=== PATIENT | male | born 1930 | race Caucasian/White ===

== ENCOUNTER 2017-03-31 11:03 | Inpatient (IN) ==
[2017-03-31 12:13] LABS: URINE SOURCE VOIDED
[2017-03-31 12:28] LABS: BILIRUBIN URINE NEGATIVE (NEGATIVE); BLOOD URINE NEGATIVE (NEGATIVE); COLOR ORANGE; GLUCOSE URINE NEGATIVE (NEGATIVE); LEUKOCYTES URINE LARGE (NEGATIVE); NITRITE URINE NEGATIVE (NEGATIVE); PROTEIN URINE 70 mg/dL (NEGATIVE); SP GRAVITY URINE 1.014; TURBIDITY URINE TURBID (CLEAR); URINE MICRO REVIEW NEEDED? YES; UROBILINOGEN URINE 3 mg/dL (NORMAL)
[2017-03-31 12:40] LABS: UR EPITHELIAL CELLS <10 /HPF (<10); URINE RBC TNTC /HPF (<10); URINE WBC TNTC /HPF (<10)
[2017-03-31 12:43] LABS: URINE BACTERIA 4+ /HPF
[2017-03-31 12:44] LABS: ALBUMIN 3.3 g/dL (3.5-5.0); CALCIUM 9.3 mg/dL (8.8-10.2); POTASSIUM 4.5 mmol/L (3.5-5.1); TOTAL BILIRUBIN 0.67 mg/dL (0.20-1.00); TOTAL PROTEIN 6.8 g/dL (6.3-8.3)
[2017-03-31 12:56] LABS: BASO% 0.2 % (0.0-0.8); EOS# 0.03 X1000 (0.0-0.7); EOS% 0.2 % (0.0-10.0); HEMATOCRIT 29.8 % (42.0-52.0); HEMOGLOBIN 9.8 g/dL (14.0-18.0); IMM GRAN# 0.17 X1000 (0.0-0.04); IMM GRAN% 1.2 % (0.0-0.5); LYMPH# 0.97 X1000 (1.2-3.4); LYMPH% 6.6 % (20.5-51.1); MANUAL DIFF NEEDED? YES; MCHC 32.9 g/dL (33-37); MCV 91.1 FL (81-99); MONO# 2.31 X1000 (0.11-0.59); MONO% 15.8 % (1.7-9.3); MPV 9.3 FL (7.4-10.4); PLT 297 X1000 (130-400); RBC 3.27 XMIL (4.7-6.1)
[2017-03-31] MEDS ORDERED: TYLENOL PO PRN ×2 (13:04→14:30)
[2017-03-31 13:08] LABS: URINE CASTS NONE SEEN; URINE CRYSTALS NONE SEEN; URINE SMALL ROUND CELLS NONE SEEN
[2017-03-31 13:29] LABS: LYMPHS 4 % (21-51); MONO 8 % (1-9)
[2017-03-31 13:34] LABS: SED RATE 100 mm/hr (0-15)
--- NOTE | 2017-03-31 14:44 | Diag Imaging Result Document ---
PROCEDURE NAME: ABDOMEN/PELVIS W/O CONTRAST - 03/31/2017 CT UROGRAM WITHOUT CONTRAST: FINDINGS: There is a large amount of stool present in the distal colon. There is some fluid present in the ascending colon. There is a fusiform abdominal aortic aneurysm extending above the level of the renal ostia, particularly the left renal ostium which is actually present in the lower portion of the aneurysm. This measures in excess of 5.6 cm in AP dimension. At the time of the previous study of 02/14/2017, this measured 5.8 cm which is probably not a significant difference. There is enlargement of the psoas muscle on the left extending from the iliac fossa to the level of the lower pole of the left kidney. There is some gas in the left renal pelvis. There was gas in the collecting system previously which may be due to instrumentation. No evidence of bowel obstruction is present. There are no apparent gallstones. The left renal collecting system is slightly more distended than it was on the previous study. There are no definite stones in the ureters. There is an ileal loop conduit in the right lower quadrant. IMPRESSION: Apparent left psoas hematoma. Constipation. Stable abdominal aortic aneurysm. The findings were discussed with Dr. Rosenberg at 1320 hours by telephone.
[2017-03-31] MEDS: NS 1,000 ML IV ONE (16:02)
[2017-03-31] MEDS: ZOSYN 2.25 GM/NS 2.25 GM/50 ML IVPB IV SCH ×2 (16:03→23:29)
[2017-03-31] MEDS: ZOFRAN IV PRN (16:06)
[2017-03-31] MEDS: DILAUDID IV PRN ×2 (16:06→18:44)
[2017-03-31] MEDS: CARAFATE PO SCH (16:14)
[2017-03-31] MEDS: ZOCOR PO SCH (22:08)
[2017-03-31] MEDS: RANEXA PO SCH (22:08)
[2017-03-31] MEDS: PEPCID PO SCH (22:08)
[2017-04-01] MEDS: NS 1,000 ML IV ONE (03:42)
[2017-04-01] MEDS: DILAUDID IV PRN ×6 (03:42→23:51)
[2017-04-01] MEDS: NEXIUM PO SCH (06:15)
[2017-04-01] MEDS: ZOSYN 2.25 GM/NS 2.25 GM/50 ML IVPB IV SCH ×3 (08:39→23:24)
[2017-04-01] MEDS: PEPCID PO SCH ×2 (08:42→20:05)
[2017-04-01] MEDS: RANEXA PO SCH ×2 (08:42→20:05)
[2017-04-01] MEDS: CARAFATE PO SCH ×3 (08:42→17:18)
[2017-04-01] MEDS ORDERED: ASPIRIN PO SCH (09:00)
--- NOTE | 2017-04-01 15:57 | PROGRESS NOTE ---
DATE: 04/01/2017 SUBJECTIVE: The patient states he has reasonable pain control. We discussed the anatomical considerations involving a hematoma of the psoas muscle. Vital signs: The temperature is 99.7 degrees, blood pressure is 120/42, pulse 69. PHYSICAL EXAMINATION: General: He is a well-developed, white male, in no acute distress. He seems reasonably comfortable. I do not palpate a discrete mass in the left groin or left lower quadrant. Cardiovascular: Regular. ASSESSMENT AND PLAN: 1. Patient's psoas hematoma will be left to watchful waiting. We may re-image or ask other consultants to give us advice as to whether we should do anything with this or not. His pain is reasonably controlled. 2. The patient's UTI still just shows a gram-negative giovany in the microbiology lab. Will await further identification and sensitivities in order to tune our antibiotics to the organism appropriately. 3. The patient's other medications and problems are stable. We will continue to follow. cc: Ramon Rosenberg MD
[2017-04-01] MEDS: ZOCOR PO SCH (20:05)
[2017-04-02] MEDS: DILAUDID IV PRN ×4 (06:06→17:24)
[2017-04-02] MEDS: NEXIUM PO SCH (06:08)
[2017-04-02 06:35] LABS: MANUAL DIFF NEEDED? NO
[2017-04-02 06:39] LABS: BASO% 0.1 % (0.0-0.8); EOS# 0.06 X1000 (0.0-0.7); EOS% 0.3 % (0.0-10.0); HEMATOCRIT 28.8 % (42.0-52.0); HEMOGLOBIN 9.1 g/dL (14.0-18.0); IMM GRAN# 0.08 X1000 (0.0-0.04); IMM GRAN% 0.4 % (0.0-0.5); LYMPH# 1.02 X1000 (1.2-3.4); LYMPH% 5.6 % (20.5-51.1); MCH 29.6 PG (27-31); MCHC 31.6 g/dL (33-37); MCV 93.8 FL (81-99); MONO# 2.68 X1000 (0.11-0.59); MONO% 14.7 % (1.7-9.3); NEUT% 78.9 % (42.2-75.2); PLT 293 X1000 (130-400); RBC 3.07 XMIL (4.7-6.1)
[2017-04-02 06:56] LABS: CALCIUM 9.1 mg/dL (8.8-10.2); POTASSIUM 4.6 mmol/L (3.5-5.1)
[2017-04-02] MEDS: CARAFATE PO SCH ×3 (09:31→17:24)
[2017-04-02] MEDS: PEPCID PO SCH (09:31)
[2017-04-02] MEDS: RANEXA PO SCH (09:31)
[2017-04-02] MEDS: MAXIPIME 2 GM/NS 2 GM/100 ML IVPB IV SCH (09:51)
--- NOTE | 2017-04-02 11:02 | CONSULTATION ---
DATE OF CONSULTATION: 04/02/2017 CONCLUSION: The patient last night had fever, chills, and he has leukocytosis. On CT scan he has what is being called by the radiologist a left psoas hematoma. Both Dr. Rosenberg and I are concerned that the hematoma may be infected. The patient also has a gram negative giovany urinary tract infection. RECOMMENDATIONS: I have discontinued Zosyn and placed the patient on cefepime. I agree with Dr. Rosenberg that it would be advantageous to drain the left psoas fluid collection and send it for culture. DISCUSSION: The patient tells me approximately 3 weeks ago he started having pain in his left groin area, radiating down the left leg. In the past year he has had low back pain associated with pain radiation down both legs. This has gotten progressively worse. He had fever last night and his white count is elevated at 18,180. As mentioned above, CT scan shows a left psoas muscle hematoma. The patient's CBC shows a white count of 18,180, hemoglobin 9.1, and platelet count is 293,000. Creatinine is 2. GFR is 32. Urinalysis shows white cells and bacteria. Urine is growing a gram negative giovany. PAST MEDICAL HISTORY/REVIEW OF SYSTEMS: Eyes and ears: He denies difficulty hearing or seeing. Neck: No stiffness. Respiratory: No cough or shortness of breath. Cardiac: No chest pain or palpitation. Gastrointestinal: No nausea, vomiting, or diarrhea. : The patient has an ileal conduit in place. Endocrine: The patient does not have a history of diabetes or thyroid disease. Bones, joints, and muscles: As mentioned above, the patient has low back pain which radiates down both legs. He says is getting progressively worse. Neurologic: No seizures. No motor or sensory loss. PREVIOUS HOSPITALIZATIONS AND OPERATIONS: He has had coronary artery bypass grafting, placement of coronary artery stents, aortic aneurysm repair, cervical spine surgery, removal of his bladder for bladder cancer and creation of an ileal conduit. He has also had knee surgery on both knees. MEDICAL DISEASES: Positive for osteoarthritis, hypertension, bladder cancer, hyperlipidemia, and multiple myeloma. INFECTIOUS DISEASE HISTORY: Positive for pneumonia and a left psoas abscess. FAMILY HISTORY: Positive for multiple myeloma and strokes. [place]IAL HISTORY[place] . He has a dog as a pet. He lives alone. ALLERGIES: He is allergic to Demerol. HOME MEDICATIONS: Include Carafate, Zocor, Ranexa, multivitamins, Nexium, aspirin, and Tylenol. PHYSICAL EXAMINATION: Vital Signs: Temperature is 98.5 degrees, pulse 77, respirations 18, blood pressure 119/49. Patient's weight is listed as 211 pounds. Generally: This is a chronically ill- appearing, elderly male. He is in no acute distress. Head eyes, ears, nose, and throat: He can hear my spoken words and see near objects. No drainage noted from the nose or ears. Neck: No meningismus. Thorax: No increased AP diameter of the chest. Lungs: Clear to auscultation. Cardiovascular: Heart rate is regular. There is a systolic murmur. Abdomen: Soft and nontender. Neurologic: Patient is alert. He can move his extremities. There is no tremor. His sensation is intact to touch. His memory, as regarding his medical history, is intact. Integument: No rash is noted. Bones, joints, muscles: There is no joint swelling. There is no muscle tenderness. Integument: No rash seen. Thank you for the consult. cc: MD Ramon Alarcon MD [facility]
--- NOTE | 2017-04-02 13:04 | Diag Imaging Result Doc PS360 ---
EXAM: Drainage Abd Abscess w/Imaging HISTORY: psoas abscess COMPARISON: None. FINDINGS: Prior to the procedure are discussed the risk and benefits with the patient. Primary risks include: Bleeding, infection, and bowel injury. Questions were answered. The patient then gave consent. A permit was signed. The patient was placed [id number] CT table. The irregular collection within the left psoas muscle was localized with CT. The largest area was marked on the body surface. This area was cleaned and draped in normal fashion. Lidocaine was used as a local anesthetic. A 10-Iraqi catheter was advanced into the fluid collection without difficulty. Thick yellowish and brownish fluid was withdrawn. A portion of this was sent to the laboratory for analysis, Gram stain, and culture. Needle and introducer were removed. Pigtail catheter was left in position. This was secured to the patient's skin surface. The patient had no complaints during or following the procedure. IMPRESSION: CT-guided abscess drainage with no immediate postprocedural complications. Electronically signed by Aashish Mcclendon 04/02/2017 1:02 PM
[2017-04-03] MEDS: DILAUDID IV PRN ×3 (00:52→19:00)
[2017-04-03] MEDS: ZOCOR PO SCH (00:52)
[2017-04-03] MEDS: MAXIPIME 2 GM/NS 2 GM/100 ML IVPB IV SCH ×3 (00:52→21:47)
[2017-04-03] MEDS: RANEXA PO SCH ×3 (00:53→21:47)
[2017-04-03] MEDS: PEPCID PO SCH ×3 (00:53→21:47)
[2017-04-03] MEDS: NEXIUM PO SCH (06:45)
[2017-04-03] MEDS: CARAFATE PO SCH ×3 (09:17→17:32)
--- NOTE | 2017-04-03 09:18 | PROGRESS NOTE ---
DATE: 04/03/2017 SUBJECTIVE: The patient states that he is reasonably comfortable. He tolerated his procedure yesterday very well. His psoas abscess was approached with CT guidance, and pigtail catheter drain was placed which is still in place at the present time. Dr. Stallworth consulted yesterday and changed antibiotics. OBJECTIVE: Vital Signs: Temperature now is 99.2, T-max is 99.5 degrees. Blood pressure is 112/46. PHYSICAL EXAMINATION: The patient's lungs are clear. Cardiovascular: Regular. The patient has a drain in place in the left groin area which does not appear to have anything in the bag at the present time, but there is some serosanguineous fluid, brownish in color. Collected in the bottom of it is a scant amount at the present time. ASSESSMENT AND PLAN: 1. The patient's psoas abscess has been drained. He is on antibiotics. We are awaiting culture of abscess fluid. He will remain on cefepime for the present time. 2. The patient's urinary tract infection drawn from the ileal conduit has identified a gram- negative giovany but has gone no further today at the time of this dictation. We will adjust any antibiotics based on those culture results as well. 3. The patient's blood pressure is rather low today. We will continue to monitor this. 4. The patient's last creatinine was 2.0 with reasonable hydration. We will continue to follow this as well. cc: Ramon Rosenberg MD
--- NOTE | 2017-04-03 15:32 | PROGRESS NOTE ---
DATE: 04/03/2017 PRESENT ILLNESS: The patient has a recurrence of his left psoas abscess. Gram positive cocci are seen on gram stain of the abscess. He also has a gram negative giovany UTI. MEDICATIONS: The patient is on cefepime. PHYSICAL EXAMINATION: Vital Signs: Temperature is 99.2 degrees, pulse 71, respirations 18, blood pressure 112/46. General: This is an ill-appearing, elderly male. He is in no acute distress. Lungs: Clear to auscultation. Cardiovascular: Regular heart rate. Abdomen and Flank: Patient has a drain in the left psoas abscess. The fluid coming out is a brownish yellowish fluid. LAB AND X-RAY: The psoas Gram stain shows gram-positive coccus. The culture thus far is negative. Urine culture is growing a gram-negative giovany. There is no new CBC or BMP for today. There is no new x-ray for today either. ASSESSMENT AND PLAN: The patient has a gram-negative giovany urinary tract infection and gram- positive cocci in the left psoas abscess. I plan to continue cefepime. I have ordered daptomycin to be given in case the gram-positive coccal organism turns out to be methicillin-resistant Staph aureus. I have discontinued Zocor while the patient is on daptomycin because of the interaction between the 2 causes an increased risk of muscle toxicity. The assessment is that he does have a urinary tract infection and a recurrent psoas abscess. The plan will be to continue cefepime and start daptomycin pending culture results. COMORBIDITIES: Include the fact that he is elderly and he has chronic lymphocytic leukemia and has previously had a psoas abscess. I will go ahead and check his immunoglobulin levels also. cc: MD Ramon lAarcon MD [facility]
[2017-04-03] MEDS ORDERED: CUBICIN (FOR INPATIENT USE) 600 MG in NS 100 ML IV SCH (16:00)
[2017-04-04 06:20] LABS: MANUAL DIFF NEEDED? NO
[2017-04-04 06:23] LABS: BASO% 0.1 % (0.0-0.8); EOS# 0.19 X1000 (0.0-0.7); EOS% 1.2 % (0.0-10.0); HEMATOCRIT 28.9 % (42.0-52.0); HEMOGLOBIN 9.3 g/dL (14.0-18.0); IMM GRAN# 0.09 X1000 (0.0-0.04); IMM GRAN% 0.6 % (0.0-0.5); LYMPH# 0.91 X1000 (1.2-3.4); LYMPH% 5.9 % (20.5-51.1); MCH 29.4 PG (27-31); MCHC 32.2 g/dL (33-37); MCV 91.5 FL (81-99); MONO# 1.71 X1000 (0.11-0.59); MONO% 11.1 % (1.7-9.3); MPV 9.1 FL (7.4-10.4); NEUT% 81.1 % (42.2-75.2); PLT 332 X1000 (130-400); RBC 3.16 XMIL (4.7-6.1)
[2017-04-04] MEDS: NEXIUM PO SCH (06:39)
[2017-04-04 06:49] LABS: ALBUMIN 2.8 g/dL (3.5-5.0); CALCIUM 9.5 mg/dL (8.8-10.2); POTASSIUM 4.6 mmol/L (3.5-5.1); TOTAL BILIRUBIN 0.71 mg/dL (0.20-1.00)
[2017-04-04] MEDS: DILAUDID IV PRN ×2 (07:51→20:03)
[2017-04-04] MEDS: CARAFATE PO SCH ×4 (07:52→16:43)
[2017-04-04] MEDS: PEPCID PO SCH ×3 (07:52→20:54)
[2017-04-04] MEDS: RANEXA PO SCH ×3 (07:52→20:54)
[2017-04-04] MEDS: MAXIPIME 2 GM/NS 2 GM/100 ML IVPB IV SCH (07:53)
--- NOTE | 2017-04-04 11:59 | PROGRESS NOTE ---
DATE: 04/04/2017 SUBJECTIVE: The patient has no complaints. He is getting up and going to the restroom when needed. He is getting in the chair. He is eating well. His pain is all but resolved as a result of drainage of the abscess in the psoas muscle. OBJECTIVE: Vital Signs: T-max 99.2 degrees, temperature now 98.2, blood pressure 135/52, pulse rate is 78, respirations 12 and unlabored. 97% saturated on room air. General: He is a well- developed, well-nourished, white male. He is sleeping upon my visit but easily arousable. He is alert, oriented, conversive and appropriate. Lungs: Clear. Cardiovascular: Regular. The psoas abscess drain has about 20-30 mL of brownish clear fluid draining by gravity. MICROBIOLOGY: Patient's urine from the ileal conduit grew Enterobacter cloacae complex in greater than 100,000 colony-forming units per mL. It is resistant to everything except amikacin. The culture taken from the psoas muscle has shown no growth at the present time, but did have a few scattered gram positive cocci. LABORATORY: White cell count is down to 15.4, hematocrit 28.9, BUN is 50, creatinine 1.8. AST is up to 206, ALT 191, alkaline phosphatase 214. ASSESSMENT/PLAN: 1. The patient's psoas abscess is draining. We are awaiting cultures results. Dr. Stallworth has been dosed him with daptomycin and we will make adjustments on this based on culture results or need for further antibiotics. 2. The patient's urinary tract infection, which was drawn from his ileal conduit which we already know to leak stool, has grown Enterobacter cloacae complex which is resistant to everything except amikacin. I took the liberty of discontinuing the cefepime and starting amikacin dose which was adjusted for the patient's age and creatinine in consultation with the pharmacist. We will be drawing the peak and trough levels in approximately 2 days. 3. The patient's renal insufficiency has improved slightly to a creatinine of 1.8. 4. Abdominal aortic aneurysm, aware. 5. I encouraged the patient to get up and move around in the room, to sit in the chair, and to consume adequate p.o. intake. He was in agreement with this. I informed the patient that he will be here over the weekend to continue antibiotics and probably arrange for a PICC line and IV infusion at home at the time of discharge. He will likely be here through the weekend and no plans are made in regard to this. cc: Ramon Rosenberg MD
[2017-04-04] MEDS: AMIKACIN IV SCH (14:15)
[2017-04-04] MEDS: NS IV SCH (14:15)
--- NOTE | 2017-04-04 15:58 | PROGRESS NOTE ---
DATE: 04/04/2017 PRESENT ILLNESS: The patient has a [id number] Enterobacter urinary tract infection. He also appears to have a psoas abscess, not only because the fluid looks like it is an abscess, but also on Gram stain, Gram-positive cocci were seen in the abscess. MEDICATIONS: The patient is on daptomycin. He had been on cefepime, and Dr. Rosenberg discontinued cefepime and started the patient on amikacin, which is the only antibiotic that the Enterobacter organism was susceptible to. I have asked the microbiology laboratory to send that Enterobacter isolate to [facility] for testing against meropenem. PHYSICAL EXAMINATION: Vital Signs: Temperature is 98.7 degrees, pulse 70, respirations 18, blood pressure 136/53. Generally: This is an ill-appearing, elderly male. He is somewhat lethargic. He is in no acute distress. Lungs: Clear to auscultation. Cardiovascular: Regular heart rate. Abdomen and Flanks: The patient has a drain in place in the psoas abscess. There is no erythema at the drain site. The abdomen was soft and tender, as were both flanks. LABORATORY AND X-RAY: CBC for today shows a white count of 15,430, hemoglobin 9.3, and platelet count of 332,000. Creatinine is 1.8. GFR is 36. The psoas abscess Gram stain was positive for Gram-positive cocci. The culture has remained negative. The Enterobacter is susceptible to only amikacin. ASSESSMENT AND PLAN: The assessment is that the patient has a Gram-negative giovany urinary tract infection and a Gram-positive coccal left psoas abscess. The patient now is on vancomycin and amikacin. The plan now is to continue treatment with the amikacin and the daptomycin. The patient's CBC shows a white count of 15,430, hemoglobin 9.3, and platelet count of 332,000. Creatinine is 1.8 and GFR is 36. Urine grew a [id number] Enterobacter. The psoas abscess Gram stain showed Gram-positive cocci, but the cultures are negative. We will continue to treat with daptomycin for the psoas abscess and amikacin for the Enterobacter urinary tract infection. COMORBIDITIES: The patient's comorbidities are that he is elderly, has chronic lymphocytic leukemia, and has previously had a psoas abscess. Immunoglobulin levels have been drawn and I do not see any results yet for the abscesses. cc: MD Ramon Alarcon MD
[2017-04-04] MEDS: CUBICIN (FOR INPATIENT USE) 600 MG in NS 100 ML IV SCH (16:42)
[2017-04-05] MEDS: AMIKACIN IV SCH ×3 (00:06→23:22)
[2017-04-05] MEDS: NS IV SCH ×3 (00:06→23:22)
[2017-04-05] MEDS: NEXIUM PO SCH (06:19)
--- NOTE | 2017-04-05 08:30 | PROGRESS NOTE ---
DATE: 04/05/2017 SUBJECTIVE: Mr. Dean was admitted to [facility] with a psoas abscess. He is currently undergoing drainage of the abscess. He is not having any significant groin pain. Anaerobic cultures demonstrated no anaerobes and Gram's staining of the abscess was unremarkable. He is not having any dysuria, increased urinary frequency, or low back pain. A urine culture grew out Enterobacter cloacae. He is resting comfortably at night. His appetite is good. He denies any nausea or vomiting. He is afebrile. Pulse 74, respirations 24, BP 137/48.CV: Regular rate and rhythm with a 2/6 systolic ejection murmur at the left sternal margin. Lungs: Clear. Abdomen: Soft, nontender, with active bowel sounds. ASSESSMENT AND PLAN: 1. Psoas abscess status post drainage. 2. Urinary tract infection in which cultures grew out Enterobacter cloacae. 3. [id number]-st-dwvqcrv renal insufficiency. Clinically, Mr. Dean continues to improve. We will continue broad-spectrum antibiotics, including daptomycin 600 mg IV q.24 hours pending final cultures. Renal function continues to improve. His creatinine has dropped from 2.1 to 1.8. We will continue gentle hydration and recheck a creatinine in the morning. cc: MD Ramon Martines MD
[2017-04-05] MEDS: DILAUDID IV PRN ×2 (08:38→17:18)
[2017-04-05] MEDS: PEPCID PO SCH ×2 (08:39→21:14)
[2017-04-05] MEDS: CARAFATE PO SCH ×3 (08:39→21:14)
[2017-04-05] MEDS: RANEXA PO SCH ×2 (08:40→21:14)
[2017-04-05] MEDS: CUBICIN (FOR INPATIENT USE) 600 MG in NS 100 ML IV SCH (17:10)
[2017-04-06] MEDS: NEXIUM PO SCH (06:17)
[2017-04-06 06:55] LABS: MANUAL DIFF NEEDED? NO
[2017-04-06 07:04] LABS: BASO% 0.1 % (0.0-0.8); EOS% 2.8 % (0.0-10.0); HEMATOCRIT 31.4 % (42.0-52.0); IMM GRAN# 0.08 X1000 (0.0-0.04); IMM GRAN% 0.6 % (0.0-0.5); LYMPH# 0.97 X1000 (1.2-3.4); LYMPH% 6.7 % (20.5-51.1); MCH 29.4 PG (27-31); MCHC 31.8 g/dL (33-37); MCV 92.4 FL (81-99); MONO# 1.65 X1000 (0.11-0.59); MONO% 11.4 % (1.7-9.3); NEUT% 78.4 % (42.2-75.2); PLT 363 X1000 (130-400)
[2017-04-06 07:50] LABS: ALBUMIN 2.9 g/dL (3.5-5.0); CALCIUM 10.2 mg/dL (8.8-10.2); POTASSIUM 4.8 mmol/L (3.5-5.1); TOTAL BILIRUBIN 0.64 mg/dL (0.20-1.00); TOTAL PROTEIN 7.2 g/dL (6.3-8.3)
[2017-04-06] MEDS: RANEXA PO SCH ×2 (08:47→20:29)
[2017-04-06] MEDS: CARAFATE PO SCH ×3 (08:47→17:07)
[2017-04-06] MEDS: PEPCID PO SCH ×2 (08:47→20:29)
[2017-04-06] MEDS: ZOFRAN IV PRN (09:09)
[2017-04-06] MEDS: NS IV SCH (11:43)
[2017-04-06] MEDS: AMIKACIN IV SCH (11:43)
[2017-04-06] MEDS: DILAUDID IV PRN (12:57)
--- NOTE | 2017-04-06 14:20 | PROGRESS NOTE ---
DATE: 04/06/2017 SUBJECTIVE: Mr. Dean was admitted to [facility] with a psoas abscess. The abscess has been drained. He has had no groin pain, nausea or vomiting. Cultures have grown out Bacteroides fragilis. He remains afebrile. OBJECTIVE: Vital signs: Temperature 98.8 degrees pulse 83, respirations 18, BP 144/64. CV: Regular rate and rhythm with a 2/6 systolic ejection murmur at the left sternal margin. Lungs: Clear. Abdomen: Soft, nontender, with active bowel sounds. LABORATORY DATA: Various laboratory studies were obtained. A CBC demonstrated a white count of 14.4, hemoglobin 10, hematocrit 31.4 and a platelet count of 363,000. A CMP demonstrates sodium 140, potassium 4.8, chloride 101, CO2 22, BUN 47, creatinine 1.6, glucose 129. ASSESSMENT AND PLAN: 1. Psoas abscess. Cultures grew out Bacteroides fragilis. He is currently taking daptomycin 600 mg IV daily. His liver enzymes are trending upward. On 03/31/2017 his AST was 44, the ALT was 49. Today the AST was 256 and the ALT was 356. Daptomycin is associated with liver function abnormalities. I will reduce the dosage of daptomycin to 4 mg/kg body weight and he will take 400 mg IV q.24 hours. I will recheck liver function test in the morning as well as check an ultrasound of the gallbladder and liver in the morning. 2. Acute on chronic renal insufficiency. His creatinine has dropped from 2.1 to 1.4. We will continue gentle rehydration. cc: MD Ramon Martines MD
[2017-04-06] MEDS ORDERED: INVANZ 1 GM/NS 1 GM/50 ML IVPB IV SCH (14:45)
--- NOTE | 2017-04-06 15:59 | Diag Imaging Result Doc PS360 ---
EXAM: ABDOMEN/PELVIS W/O CONTRAST HISTORY: psoas abscess, increased liver function tests TECHNIQUE: CT urogram without contrast COMMENT: There is mild the dependent atelectasis in the right base. The left psoas is less enlarged than it was at the time the previous study of 03/31/2017. It now measures 6.5 cm in transverse dimension compared to 8 cm at the time of the previous study. The drainage catheter which was placed on 04/02/2017 is no longer present. The abdominal aortic aneurysm which has been previously described is stable in appearance. There is still fullness of the collecting system of the left kidney. There is a fairly large amount of fluid and gas in the distal colon. This is in distinction from the solid contents which were previously present. There are no gallstones and the appearance of the liver has not changed significantly since the previous study. IMPRESSION: Improved left psoas abscess. Improved constipation. Electronically signed by Willem Hernadez 04/06/2017 3:57 PM
[2017-04-06] MEDS ORDERED: CUBICIN (FOR INPATIENT USE) 400 MG in NS 100 ML IV SCH (16:00)
--- NOTE | 2017-04-06 18:58 | PROGRESS NOTE ---
DATE: 04/06/2017 SUBJECTIVE: Patient has a psoas abscess from which Bacteroides fragilis was isolated. It is of note that the original Gram stain of the abscess fluid showed gram positive cocci and of course Bacteroides fragilis is a gram-negative giovany. The patient also has a multiply drug resistant Enterobacter urinary tract infection. I think in trying to put the patient's story altogether he came in and he had pain in his left lower abdominal quadrant and it was especially noticeable when he walked. The left psoas muscle infection I think is the cause of that pain because for 1, the psoas muscle is more in that area rather than the left kidney which is more in the CVA area. In addition, the pain only occurred when he walked and I think what the patient was doing when he walked was he was actually doing a psoas sign on himself in other words when he walked the left legged extended itself which is what you would do when they are lying in bed and if that causes pain then that means that there is something going on in the psoas muscle rather than the kidney. Therefore, I think the urinary tract infection with Enterobacter is asymptomatic. In addition, the patient has a urostomy and the urine was collected from the urostomy bag. To best of my knowledge, those bags are not sterile and in addition if the patient's urine culture was taken from the bag that was not just put on the patient then I think there is a high likelihood that organisms were growing in the bag and not necessarily coming from the kidney. The bags themselves get colonized with other organisms. Therefore my feeling would be that the patient's illness is due to a left psoas abscess from which Bacteroides was isolated and the urinary tract infection is asymptomatic. MEDICATIONS: The patient is on amikacin and daptomycin. PHYSICAL EXAMINATION: Vital Signs: Temperature is 98.8 degrees, pulse 83, respirations 18, blood pressure 144/64. General: This is a somewhat ill-appearing elderly male. He is in no acute distress. He is feeling better. He says he is not having any pain and he has been able to have a fairly good appetite. Lungs: Clear to auscultation. Cardiovascular: Heart rate is regular. Abdomen and flank: Soft and nontender. LABORATORY AND X-RAY: The patient's psoas culture is growing Bacteroides even though the Gram stain showed gram-positive cocci. I think it is possible that the that the gram-positive cocci actually are not present in the abscess. The patient's CBC shows a white count of 14,450, hemoglobin 10 and platelet count 363,000. Creatinine is down to 1.6. GFR is 41. The ALT is 356. The patient had immunoglobulin levels drawn and they were normal. ASSESSMENT AND PLAN: My assessment is that the patient has a Bacteroides left psoas abscess and that this is causing the patient's symptoms. I agree with Dr. Carroll that the daptomycin could be causing the patient's elevated liver function studies. I further think that the Enterobacter urinary tract infection is asymptomatic or possibly could just represent contamination in the bag. My plan is to discontinue daptomycin and discontinue amikacin and instead put the patient on ertapenem 1 g IV every 24 hours. COMORBIDITY: He is elderly. Also, he has chronic lymphocytic leukemia but fortunately his immunoglobulin levels are not low. The patient has been having problems with infection in the left psoas muscle. Previously we have not grown anything from the abscess. cc: MD Ramon Alarcon MD
[2017-04-07] MEDS: NEXIUM PO SCH (06:17)
[2017-04-07 07:25] LABS: ALBUMIN 2.9 g/dL (3.5-5.0); DIRECT BILIRUBIN 0.2 mg/dL (0.00-0.20); TOTAL BILIRUBIN 0.41 mg/dL (0.20-1.00); TOTAL PROTEIN 6.9 g/dL (6.3-8.3)
[2017-04-07] MEDS: RANEXA PO SCH (08:31)
[2017-04-07] MEDS: CARAFATE PO SCH ×2 (08:31→12:19)
[2017-04-07] MEDS: PEPCID PO SCH (08:31)
[2017-04-07 08:49] VITALS: BP 137/56
--- NOTE | 2017-04-07 12:37 | Diag Imaging Result Doc PS360 ---
Drainage Abd Abscess w/Imaging - 04/07/2017 INDICATION: catheter out of place TECHNIQUE: The risks and benefits of the procedure were discussed with the patient. All questions were answered. Written and verbal informed consent was obtained. Overlying skin was prepped and draped in sterile fashion. Anesthesia was achieved with injection of 10 cc of 1% lidocaine. Using intermittent CT guidance, a new 10.2-Georgian abscess drain was placed into the left psoas collection. Approximately 100 cc of pus was aspirated using a syringe. The drainage catheter was sutured in place. The patient reported no symptoms from the procedure. COMPARISON: 04/06/2017 FINDINGS: Left psoas abscess. IMPRESSION: Successful drainage of left psoas abscess. Electronically signed by Deni Sales 04/07/2017 12:34 PM
[2017-04-07] MEDS ORDERED: AUGMENTIN PO SCH (21:00)
--- NOTE | 2017-04-08 15:52 | DISCHARGE SUMMARY ---
ADMISSION DATE: 03/31/2017 DISCHARGE DATE: 04/07/2017 Consultation is for Porfirio Stallworth as well as Aashish Mcclendon. HOSPITAL COURSE: This 87-year-old, white male, came in complaining of left lower quadrant pain identical to his previous psoas abscess. He did not have any fever but was brought to the hospital for investigation. He indeed had a fluid collection in his left psoas muscle and spiked a fever shortly thereafter. Initial workup included urine collected from his conduit/urostomy bag. The grew out enterococci species with significant resistance pattern. CT-guided drain placement for the left psoas fluid collection was obtained. This was Gram stained and appeared to have gram-positive cocci in it but then grew out Enterobacter cloacae species. Dr. Stallworth was consulted and he felt that the patient's infectious process was related to the psoas abscess and was not to the contaminated urostomy output. He felt that he had likely asymptomatic bacteriuria from the ileal conduit. We discussed options and the patient would like to try an outpatient p.o. Augmentin for a period of time rather than IV antibiotics. Prior to discharge at a CT scan was run for unclear reasons but thankfully. This was noted to show a decrease in the size of the psoas abscess but that the drain was not in the fluid collection any longer. There did not appear to be any interruption or movement of the drain but for some reason, it was no longer in the fluid collection. We reordered a procedure for drainage and the radiologist was able to put a pigtail catheter in the fluid collection and drained off what he described as 100 mL of pus. The drain was left in place and allowed to drain by gravity. It is noted that on the CT scan showing the drain placed that the fluid collection had decreased from a maximum diameter of 8 cm to a diameter of 5.5 cm. This was all explained to the patient. He is in agreement and very desirous of discharge with the trial of PO Augmentin. He will keep the pigtail catheter in place draining to gravity and will follow up in my office in 1 week. He knows that if he has any fever were to come up, worsening pain or other symptomatology to contact me any time. cc: Ramon Rosenberg MD
== END 2017-04-07 17:18 | disposition home or self-care (01) ==
LOC: CT 11:03 → DIRADM 12:44 → 3N 14:05
PROVIDERS: ADMIT Internal Medicine; ATTEND Internal Medicine

== ENCOUNTER 2019-01-08 02:35 | Inpatient (IN) ==
[2019-01-08] MEDS ORDERED: MORPHINE IV ONE ×2 (03:15→06:16)
--- NOTE | 2019-01-08 04:20 | PROVIDER DOCUMENTATION ---
HPI-General Adult - General Chief Complaint: Hip Injury Stated Complaint: hip pain Time Seen by Provider: 01/08/19 03:10 Source: patient Allergies/Adverse Reactions: Patient Allergies Allergy/AdvReac Type Severity Reaction Status Date / Time meperidine HCl * Allergy HIVES Verified 12/22/17 13:18 [From Demerol] Home Medications: Home Medication List Medication Instructions Recorded Confirmed Last Taken Type Aspirin 81 mg PO DAILY 07/29/16 12/22/17 12/22/17 08:00 History Acetaminophen [Tylenol] 650 mg PO Q6H PRN PRN #0 tablet 08/02/16 12/22/17 21:00 Rx ATORVAstatin [Lipitor] 40 mg PO DAILY 11/23/17 12/22/17 12/21/17 21:00 History Famotidine [Pepcid] 20 mg PO BID tablet 12/01/17 12/22/17 12/22/17 08:00 Rx Colesevelam [Welchol] 625 mg PO DAILY tablet 12/25/17 Unknown Rx Lactobacillus Rhamnosus GG 1 each PO DAILY capsule 12/25/17 Unknown Rx [Culturelle] Amoxicillin/Pot Clavulanate 875 mg PO BID CC tablet 02/05/18 Unknown Rx [Augmentin] Loperamide [Imodium] 2 mg PO QAM capsule 02/05/18 Unknown Rx Menthol/Zinc Oxide Ointment 1 gm TOP PRN PRN tube 02/05/18 Unknown Rx [Calmoseptine Ointment] Mirtazapine [Remeron] 7.5 mg PO QHS tablet 02/05/18 Unknown Rx Multivitamins/Iron [Hemocyte Plus 1 each PO DAILY capsule 02/05/18 Unknown Rx Capsule] Ranolazine E.r. [Ranexa] 500 mg PO Q12HR tablet 02/05/18 Unknown Rx - History of Present Illness -Gen Adult Nature of Presenting Problems: Pt presents s/p fall, pt got up to go to the bathroom, got dizzy and landed on his left hip, now with pain in left hip, sharp, no radiation, constant, pt denies head trauma, pt denies loc, pt denies f/c, victor, cp, sob, cough, ap, n/v/ d. Pt is lying in bed in no acute distress. Location of Pain/Injury: reports: pelvis Pain Radiation: reports: no radiation Quality of Pain: reports: sharp Onset/Duration: reports: 1-3 hours ago Timing: reports: still present Context/Activities at Onset: reports: none Modifying Factors: improves with: nothing Associated Symptoms: reports: denies symptoms Similar Symptoms Previously?: No Recently seen or treated by another doctor?: No Review of Systems - Adult - REVIEW OF SYSTEMS - ADULT Constitutional: reports: no symptoms reported Eyes: reports: no symptoms reported Ears, Nose, Mouth & Throat: reports: no symptoms reported Cardiovascular: reports: no symptoms reported Respiratory: reports: no symptoms reported Gastrointestinal: reports: no symptoms reported Genitourinary: reports: no symptoms reported Musculoskeletal: reports: see HPI Integumentary: reports: no symptoms reported Neurological: reports: no symptoms reported Psychiatric: reports: no symptoms reported Endocrine: reports: no symptoms reported Hematologic/Lymphatic: reports: no symptoms reported Allergic/Immunologic: reports: no symptoms reported All Other Systems: Reviewed and Negative Past History - Adult - PAST MEDICAL HISTORY-ADULT Review of Records: reports: Old Records Reviewed, Nursing Assessment Review, Medications Reviewed, Social history reviewed & non-contributory. Major Childhood Illnesses: reports: denies history Cardiovascular: reports: CAD, HTN, hyperlipidemia, [place] Respiratory: reports: denies history Gastrointestinal: reports: GERD Obstetrical/Gynecological: reports: denies history Genitourinary: reports: cancer (bladder ), kidney disease, kidney stones Musculoskeletal: reports: denies history Neurological: reports: denies history Psychiatric: reports: denies history Endocrine/Immune: reports: denies history Other Conditions: reports: other cancer (multiple myleoma , bone ca) - PRIOR SURGERIES/PROCEDURES Surgical/Procedure History: reports: CABG (x2), indwelling device, other ( removal of bladder, cystosostomy, neck and back surgery, Aorta repair) - PRIOR HOSPITALIZATIONS Prior Hospitalizations: reports: for other non-related - IMMUNIZATION STATUS Childhood Immunizations: See Nurse Assessment Flu Vaccine: See Nurse Assessment - FAMILY HISTORY Family History: reviewed, not pertinent Physical Exam-General - PHYSICAL EXAM-ADULT Initial Vital Signs Reviewed: Yes - CONSTITUTIONAL General Appearance: appears well - EYES Eyes: PERRL/EOMI - HEAD, EARS, NOSE, MOUTH & THROAT HENMT: normocephalic/atraumatic - NECK Neck: non-tender - RESPIRATORY Respiratory: chest non-tender - CARDIOVASCULAR Cardiovascular: normal peripheral pulses - GASTROINTESTINAL (ABDOMEN) Abdominal Exam: normal bowel sounds - LYMPHATIC Lymphatic: no adenopathy - MUSCULOSKELETAL Back Exam: other (left leg shortened and rotated, ttp in left hip) Extremity: tenderness - SKIN Integumentary: normal color - NEUROLOGIC Neurologic: 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 dish 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 II-XII nml as tested - PSYCHIATRIC Psych/Mental Status: normal mood/affect Progress - PLAN OF CARE/RESULTS Progress/Plan/Lab Results: Vital Signs - 8 hr 01/08/19 02:37 Temperature 98.1 F Pulse Rate 63 Respiratory Rate 18 Blood Pressure 179/62 O2 Sat by Pulse Oximetry 100 Orders Category Date Time Status Nursing- Obtain EKG once Care 01/08/19 03:14 Active NPO Diet 01/08/19 04:15 Ordered XRAY PELVIS W/HIP 2-3VW LT [RAD] Stat Exams 01/08/19 02:34 Taken CBC WITH ELECTRONIC DIFF [HEME] Stat Lab 01/08/19 03:10 Uncollected COMPREHENSIVE METABOLIC PANEL [CHEM] Stat Lab 01/08/19 03:11 Uncollected PRO B-NATRIURETIC PEPTIDE Stat Lab 01/08/19 03:14 Uncollected PROTIME WITH INR [COAG] Stat Lab 01/08/19 03:11 Uncollected PTT [COAG] Stat Lab 01/08/19 03:11 Uncollected TROPONIN T Stat Lab 01/08/19 03:14 Uncollected TYPE & SCREEN [BBK] Stat Lab 01/08/19 04:15 Uncollected Morphine Med 01/08/19 03:15 Discontinued 4 mg IV NOW ONE EKG [EKG] Stat Ther 01/08/19 03:14 Ordered xray shows left hip fracture, probable intertrochanteric, spoke to ortho and thy will see the patient in the am, pt made NPO, will admit Departure - Departure Date of Disposition Decision: 01/08/19 Time of Disposition Decision: 04:19 DIAGNOSIS: Intertrochanteric fracture of femur Qualifiers: Encounter type: initial encounter Fracture type: closed Fracture alignment: nondisplaced Laterality: left Qualified Code(s): S72.145A - Nondisplaced intertrochanteric fracture of left femur, initial encounter for closed fracture Disposition: ADMITTED INPATIENT 09 Certified Medical Emergency: Emergent Condition: Stable Referrals and Follow-Ups: Ramon Rosenberg MD [Primary Care Provider] - - Critical Care Note This patient required my direct & personal management of CC.: No Attestation - Physician/ RADHA Attestation Patient care was provided by Advanced Practice Provider:: No The physician spent face to face time with patient:: Yes Advanced Practice Provider documentation review:: Supervising physician onsite and consulted in the evaluation and care of this patient. The physician did have a face to face encounter with the patient.
[2019-01-08 05:21] LABS: INR 0.89; PROTIME 12.8 Seconds (11.0-16.0)
[2019-01-08 05:36] LABS: ALB/GLOB RATIO 1.6; ALBUMIN 3.9 g/dL (3.5-5.0); CALCIUM 9.3 mg/dL (8.8-10.2); CREATININE 2.4 mg/dL (0.7-1.2); TOTAL BILIRUBIN 0.19 mg/dL (0.20-1.00); TOTAL PROTEIN 6.4 g/dL (6.3-8.3)
[2019-01-08 05:54] LABS: BASO# 0.01 X1000 (0.0-0.2); BASO% 0.1 % (0.0-0.8); EOS# 0.11 X1000 (0.0-0.7); EOS% 1.5 % (0.0-10.0); HEMATOCRIT 27.8 % (42.0-52.0); HEMOGLOBIN 8.4 g/dL (14.0-18.0); LYMPH# 0.94 X1000 (1.2-3.4); LYMPH% 12.9 % (20.5-51.1); MCH 28.7 PG (27-31); MCHC 30.2 g/dL (33-37); MCV 94.9 FL (81-99); MONO# 0.87 X1000 (0.11-0.59); MONO% 11.9 % (1.7-9.3); MPV 10.1 FL (7.4-10.4); NEUT# 5.37 X1000 (1.4-6.5); NEUT% 73.6 % (42.2-75.2); PLT 125 X1000 (130-400); RBC 2.93 XMIL (4.7-6.1); RDW 15.4 % (11.5-14.5)
[2019-01-08 05:56] LABS: PTT 19.4 Seconds (22.3-41.8)
--- NOTE | 2019-01-08 07:30 | EKG Report ---
Test Performed on : 01/08/2019 04:38:14 AM Test Reason : SURGERY Blood Pressure : / mmHG Vent. Rate : 063 BPM Atrial Rate : 063 BPM P-R Int : 162 ms QRS Dur : 096 ms QT Int : 432 ms P-R-T Axes : 011 047 054 degrees QTc Int : 442 ms Normal sinus rhythm. Normal ECG No previous ECGs available Unconfirmed Result
--- NOTE | 2019-01-08 07:31 | Diag Imaging Result Doc PS360 ---
EXAM: XRAY PELVIS W/HIP 2-3VW LT 01/08/2019 HISTORY: fall TECHNIQUE: AP pelvis and left hip four views COMMENT: There is an intertrochanteric fracture of the left femur which was not present on 07/25/2016. There is extensive atherosclerotic calcification. IMPRESSION: Intertrochanteric fracture of the left femur. Electronically signed by Willem Hernadez 01/08/2019 7:29 AM
--- NOTE | 2019-01-08 07:39 | CONSULTATION ---
DATE OF CONSULTATION: 01/08/2019 HISTORY OF PRESENT ILLNESS: Mr. Dean is an 88-year-old male who fell last night, and injured this left hip. Most of his pain is on the left hip, and pain is worse with any movement. It does feel better when he is off of it. He denies any pain anywhere else. He stated he did hit his head a little bit, but he did not have any loss of consciousness. PAST MEDICAL HISTORY: Heart issues including coronary artery disease and hypertension. PAST SURGICAL HISTORY: Coronary artery bypass grafting times 2. Aorta repair. MEDICATIONS: Per the medical record. ALLERGIES: Meperidine SOCIAL HISTORY: He denies any smoking or alcohol use. REVIEW OF SYSTEMS: Positive for this left hip pain. All other systems are essentially negative. PHYSICAL EXAMINATION: General: Elderly appearing male. He is in no acute distress. Head and Neck: Normocephalic, atraumatic. Respirations: Nonlabored breathing. Cardiovascular: Irregular pulse. Abdomen: Nondistended. Extremities: On left lower extremity exam, he has tender to palpation at the hip. His hip is externally rotated and a little bit short in that whole leg. He has good dorsiflexion and plantar flexion of the ankle. Good sensation to light touch to the toes. IMAGING: Hip x-ray shows an intertrochanteric fracture with displacement. ASSESSMENT: Left intertrochanteric fracture. PLAN: I discussed with Mr. Dean about surgical intervention. I went over with him about left trochanteric femoral nailing. We discussed the procedure, risks, benefits, and potential complications. Risks include, but are not limited to infection, wound healing problems, damage to nerves, arteries, veins, numbness, malunion, nonunion, hardware related issues, continued pain, DVT, and anesthesia related risks. After discussing these with the patient, he expressed understanding and wished to proceed. He will be n.p.o. now, and then we will get this done today. cc: MD MANISH Saenz
[2019-01-08] MEDS ORDERED: NS 1,000 ML IV ONE (08:43)
[2019-01-08] MEDS ORDERED: MORPHINE IV PRN (09:53)
[2019-01-08] MEDS: MORPHINE IV PRN ×2 (10:29→16:27)
[2019-01-08] MEDS ORDERED: KEFZOL 2 GM/D5W 2 GM/50 ML IVPB ONE (11:40)
[2019-01-08] MEDS ORDERED: DIPRIVAN 1% ONE (11:46)
[2019-01-08] MEDS ORDERED: XYLOCAINE-MPF 2% ONE (11:46)
--- NOTE | 2019-01-08 12:13 | HISTORY AND PHYSICAL ---
CHIEF COMPLAINT: Hip pain. HISTORY OF PRESENT ILLNESS: This is an 88-year-old white male who fell at home some time after he had gone to bed. He apparently got up early in the morning and was very dizzy and fell, striking his left hip and having immediate pain. He was transferred to the emergency room and found to have a hip fracture and admitted for further treatment and stabilization. PAST MEDICAL HISTORY: 1. History of bladder cancer with cystectomy and ileo conduit. The ileo conduit has chronic stool leakage dating from the time of the original surgery. 2. The patient has coronary artery disease, status post CABG in 1978 and stents in 2004. 3. The patient had an abdominal aortic aneurysm repair in 1989. This has recurred, and his AAA is 6 cm in diameter and inoperable. 4. Hyperlipidemia. 5. Hypertension. 6. Osteoarthritis. 7. History of lumbar laminectomy with chronic lower back pain. 8. Cervical spine surgery which was ill defined. 9. The patient has a history of multiple left psoas abscesses which were treated inpatient and outpatient for extended period of time. He has had no recurrent in a year or more. SOCIAL HISTORY: The patient is retired from [employer]. He was in the [employer] prior to that. He has a 40-pack year history of smoking, he stopped in 1973. He does not use alcohol. The patient still lives alone. FAMILY HISTORY: The patient's mother had multiple myeloma and coronary artery disease. ALLERGIES: Demerol. REVIEW OF SYSTEMS: The patient stated that all day yesterday as he was walking around, he felt "a little dizzy." He would have to sit down and rest. He did not have chest pain or palpitations. He did not really have any worsening shortness of breath. He is not terribly active even at baseline. He stated that when he went to bed just before he retired, he checked his blood pressure, and it was 121/54. The patient has been experiencing leg cramps due to chronic low dose Lasix use, but if he does not take the Lasix, his legs swell up considerably. He has not had any worsening shortness of breath. He has not had any fever or chills. Ileo conduit flow has been steady, it looks no worse than usual. PHYSICAL EXAMINATION: GENERAL: He is a well-developed, well-nourished white male in no acute distress. He is reasonably comfortable in the ER when I saw him. NEUROPSYCH: The patient is alert, oriented, conversive and appropriate. His mood is appropriate. LUNGS: Clear to auscultation. Sternotomy scar is noted. CARDIOVASCULAR: He is regular. ABDOMEN: Bowel sounds are present. There is a faint bruit. EXTREMITIES: There is 1+ pitting edema in the lower extremities below the knee. The left leg is foreshortened. Other neurologic examination is not undertaken other than to note cranial nerves were intact. DIAGNOSTIC DATA: White count is 7.3, hemoglobin 8.4, hematocrit 27.8, platelet count 125. BUN is 41, creatinine 2.4, baseline is somewhere in the 1.5 range. Troponin was negative. ProBNP was negative. ASSESSMENT AND PLAN: 1. Left hip fracture. X-ray shows an intertrochanteric fracture of left femur. The patient is admitted to the hospital to my service. Evgeny Menjivar has been consulted and will perform is likely a femoral nail with internal fixation. We will have standard orthopedic orders. 2. The patient's AAA is something that we have been keeping track of. It is inoperable. It is for that reason that I am going to make him a no code in case if he has a bad outcome or bad problem, that could likely be the cause and would be unfixable anyway. 3. Coronary artery disease, aware. 4. The patient's dizziness that he describes may have been fueled by hypotension and relative dehydration based on his BUN and creatinine numbers as well as his relatively low blood pressure. We will continue to monitor this. 5. Chronic leg cramps. I have added some quinine. 6. We will reinstitute home medications following surgery. cc: Ramon Rosenberg MD
[2019-01-08] MEDS ORDERED: ROBINUL ONE (12:44)
[2019-01-08] MEDS ORDERED: NEO-SYNEPHRINE ONE (12:46)
[2019-01-08] MEDS ORDERED: SALINE LOCK IV FLUID XX ONE (13:12)
[2019-01-08] MEDS ORDERED: MORPHINE ONE ×2 (13:40→13:46)
[2019-01-08] MEDS ORDERED: NS 1,000 ML ONE (14:14)
--- NOTE | 2019-01-08 14:48 | OPERATIVE NOTE ---
PROCEDURE DATE: 01/08/2019 PREOPERATIVE DIAGNOSIS: Left intertrochanteric hip fracture. POSTOPERATIVE DIAGNOSIS: Left intertrochanteric hip fracture. PROCEDURE: Left trochanteric femoral nailing. SURGEON: Dr. Evgeny Menjivar. STAFFING RECRUITER: Anika Ortiz, nurse practitioner, who was an integral part of the case, helping with all aspects of the case, helping to increase our OR efficiency greatly. ANESTHESIA: General with LMA. ESTIMATED BLOOD LOSS: 50 mL. IMPLANTS: Synthes 11 x 440 trochanteric femoral nail. DISPOSITION: To PACU, hemodynamically stable. INDICATION FOR PROCEDURE: Mr. Dean is 88-year-old male who fell last night, was diagnosed with an intertrochanteric hip fracture, admitted per the Hospitalist Service. I discussed with him this morning about surgical intervention. He expressed understanding and wished to proceed with the surgery. DESCRIPTION OF PROCEDURE: Mr. Dean was identified in the preoperative holding area. The left hip was marked as the correct surgical site. He was then wheeled to the operating room, placed supine on the operating table. All bony prominences were well padded. He was induced under general anesthesia. LMA was placed and he was placed in traction boots and then attached to the traction part of the bed. Left lower extremity was then prepped with chlorhexidine gluconate scrub and then ChloraPrep, and draped in normal sterile fashion. Surgical pause was performed. We identified the correct patient, correct side, and the correct procedure. Preoperative antibiotics were given. Fluoroscopic imaging was used which showed we had a really good reduction of our fracture. I then started with an incision just superior to his greater trochanter. Dissection was carried down. Got our position with a guidewire. I got it into place and then I overdrilled it with an opening reamer. I then got the ball-tip guidewire down, then reamed it to a size 12 reamer. We then used an 11 x 440 nail, got it in position and then made a small incision on the lateral aspect of the thigh and got my guidewire up the center, centered in the head. I measured that to a 110 helical blade. We drilled and then put the blade in, we locked it into place, making it a fixed construct and then we took off the outrigger guide. Final images were taken which showed that the fracture was well reduced. The helical blade and the nail were in good position in both AP and lateral views. We did not put a distal interlocking screw since his lateral wall was intact. We then closed everything in a layered fashion, 0 Vicryl for the deep layer, 2-0 Vicryl for the subcutaneous and hussein on the skin. Adaptic, 4x4s, and Island dressings were applied. He was then moved to his own bed and taken to the PACU in stable condition. Postoperatively, he will be weightbear as tolerated to the left lower extremity and we will see him in the morning. cc: MD Ramon Saenz MD
[2019-01-08] MEDS: OXY IR PO PRN (20:43)
[2019-01-08] MEDS: ZOFRAN IV PRN (20:43)
[2019-01-08] MEDS: KEFZOL 1 GM/D5W 1 GM/50 ML IVPB IV SCH (20:45)
[2019-01-08] MEDS: PERIDEX MT SCH (20:45)
[2019-01-09] MEDS: KEFZOL 1 GM/D5W 1 GM/50 ML IVPB IV SCH ×2 (04:08→16:41)
[2019-01-09 06:37] LABS: HEMATOCRIT 24.2 % (42.0-52.0); HEMOGLOBIN 7.3 g/dL (14.0-18.0)
[2019-01-09 07:14] LABS: CALCIUM 9.1 mg/dL (8.8-10.2); CREATININE 1.8 mg/dL (0.7-1.2); POTASSIUM 5.2 mmol/L (3.5-5.1)
[2019-01-09] MEDS: OXY IR PO PRN ×2 (09:10→16:40)
[2019-01-09] MEDS: PERIDEX MT SCH ×2 (09:11→22:04)
[2019-01-09] MEDS: PEPCID PO SCH ×2 (09:11→22:04)
[2019-01-09] MEDS: RANEXA PO SCH ×2 (09:11→22:04)
--- NOTE | 2019-01-09 10:19 | PROGRESS NOTE ---
DATE: 01/09/2019 SUBJECTIVE: The patient is sitting in the bed. He is awake, alert, oriented, conversive and appropriate. He expresses no complaints. He has had reasonable pain control and in fact, his last pain medication was sometime last night. OBJECTIVE: Vital signs: 98.9, 86, 20, 132/57, 93% saturated on room. Cardiovascular: The patient is in a regular rhythm with a 2/6 systolic ejection murmur (old). Lungs: Clear to auscultation. Extremities: Show EDIS hose and he really has no edema at the present time. LABORATORY DATA: Hemoglobin 7.3, hematocrit 24.2. BUN 35, creatinine 1.8 ( baseline). Blood sugar is 106. ASSESSMENT AND PLAN: 1. The patient's left femoral fracture has been repaired surgically. He is scheduled to start physical therapy soon. We discussed pain control measures and staying ahead of the pain so that he can maximize his function. We also discussed rehab at the time of discharge and he was agreeable to that. 2. The patient is Do Not Resuscitate level 1. 3. Abdominal aortic aneurysm, is inoperable. 4. Severe coronary disease is noted. We will start him back on his Ranexa, and holding aspirin until his hemoglobin and hematocrit stabilize. 5. We will have to watch the patient's blood pressure, particularly given his postoperative anemia and make sure that he is fully perfused. cc: Ramon Rosenberg MD MTDTravis
--- NOTE | 2019-01-09 13:14 | PROGRESS NOTE ---
DATE: 01/09/2019 SUBJECTIVE DATA: Mr. Dean is sitting up in the bed. He is doing very well. He states his pain is much better. OBJECTIVE DATA: Left lower extremity: His incisions are clean, dry, and intact. The surgical dressing is still on with very minimal shadowing. He is able to dorsi and plantar flex the foot. He is able to activate all the quadriceps muscles. He is a little weak on that side. He has good sensation and a 2+ pedal pulse. ASSESSMENT: Status post left trochanteric femoral nailing. PLAN: Mr. Dean can be weightbearing as tolerated to this left side. I do want him getting up and working with therapy today. I have told him to get up and have lunch at the bedside chair with the nurse if therapy has not come by then. They can also take the dressing down and clean that area. It does look like we are getting him ready for rehab. We will work on getting that set up. Once he is discharged, we will need to follow up with him in 1 to 2 weeks in the office. Dictated by MEMO Dubois for Evgeny Menjivar MD cc: MEMO Dubois MD Timothy P. Weirich, MD
[2019-01-09] MEDS: QUININE SULFATE PO SCH (16:17)
[2019-01-09] MEDS: LIPITOR PO SCH (22:04)
[2019-01-10] MEDS: TYLENOL PO PRN
[2019-01-10 06:52] LABS: HEMATOCRIT 25.6 % (42.0-52.0); HEMOGLOBIN 7.8 g/dL (14.0-18.0)
--- NOTE | 2019-01-10 09:41 | PROGRESS NOTE ---
DATE: 01/10/2019 SUBJECTIVE: The patient is sitting up in bed. States that he has reasonable pain control. He ate well this morning. His bowels have not worked. We discussed management going forward. He was well-pleased. OBJECTIVE: Vital Signs: The patient's T-max was 100.1 degrees. Temperature now is 98.6, blood pressure 131/53, pulse rate is 80, respirations 20, the patient is 97% saturated on room air. Physical Examination: Cardiovascular: The patient has a 2-3/6 systolic ejection murmur which is old. He is in a regular rhythm. Lungs: Clear to auscultation in all pavon. Neuropsychiatric: The patient is alert, oriented, conversive, and appropriate. His mood and affect are normal. Extremities: The patient has on EDIS hose. I did not view the surgical wound. Laboratory: The patient's hemoglobin was 7.8, which is up 0.5 after transfusion. Serum chemistries have not been returned yet. His BUN was 35, creatinine 1.8 yesterday. ASSESSMENT AND PLAN: 1. Patient's left femoral fracture has been surgically repaired. He tolerated physical therapy yesterday, although he was a little bit uncomfortable. He stated that he would push through it and do all he can to improve his long-term function ability. 2. The patient's fever is rather inexplicable. He denies everything on review of systems and has not had any disturbance to his respiratory or gastrointestinal tract. Because of previous infectious processes including two left psoas abscesses, Clostridium difficile colitis, and multiple ileal conduit infections, I am going to start him on empiric Zosyn dosed for renal insufficiency. 3. Abdominal aortic aneurysm. Aware. Inoperable. 4. Severe coronary artery disease. The patient is back on Ranexa. We are still holding aspirin until his hemoglobin and hematocrit stabilize. He is on no other blood thinners. 5. EDIS hose for deep venous thrombosis prophylaxis. 6. The patient's blood pressure is stable. 7. The patient expressed an interest in going to [facility] for rehab as he regains his ability to transfer and walk. cc: Ramon Rosenberg MD
[2019-01-10] MEDS: OXY IR PO PRN ×2 (10:33→16:50)
[2019-01-10] MEDS: RANEXA PO SCH ×2 (10:34→21:35)
[2019-01-10] MEDS: QUININE SULFATE PO SCH (10:34)
[2019-01-10] MEDS: PERIDEX MT SCH ×2 (10:35→21:35)
[2019-01-10] MEDS: PEPCID PO SCH ×2 (10:35→21:35)
[2019-01-10] MEDS: ZOSYN 2.25 GM in NS 50 ML IV SCH ×3 (10:36→22:15)
[2019-01-10] MEDS: LIPITOR PO SCH (21:35)
[2019-01-11] MEDS: ZOSYN 2.25 GM in NS 50 ML IV SCH ×3 (03:49→18:18)
[2019-01-11 06:09] LABS: HEMATOCRIT 24.7 % (42.0-52.0); HEMOGLOBIN 7.5 g/dL (14.0-18.0)
[2019-01-11] MEDS: OXY IR PO PRN (07:58)
[2019-01-11] MEDS: RANEXA PO SCH ×2 (08:00→21:57)
[2019-01-11] MEDS: QUININE SULFATE PO SCH (08:00)
[2019-01-11] MEDS: PERIDEX MT SCH ×2 (08:00→21:57)
[2019-01-11] MEDS: PEPCID PO SCH ×2 (08:00→21:57)
--- NOTE | 2019-01-11 09:19 | PROGRESS NOTE ---
DATE: 01/11/2019 SUBJECTIVE: The patient is sitting on the edge of the bed, eating breakfast. He has no complaints. He did not receive a blood transfusion yesterday and we do not know why this did not take place. VITAL SIGNS: 98.4, 80, 18, 126/51, 96% saturated on room air. PHYSICAL EXAMINATION: General: Patient is alert, oriented, conversive, and appropriate. Lungs: Clear. Cardiovascular: Showed a 3/6 systolic ejection murmur (old). Extremities: Show no peripheral edema. LABORATORY: Hemoglobin today was 7.5, hematocrit 24.7. ASSESSMENT AND PLAN: 1. The patient seems to be doing quite well with his femoral fracture repair. He is looking forward to physical therapy. He wants to go to rehab at [facility]. 2. The patient has had no further fever. He is on empiric antibiotics. 3. I have no explanation for why the patient's blood transfusion yesterday was canceled. There was no notification given to any of the doctors that this could not be carried down. The nursing staff is looking into what happened on this and we will transfuse as soon as practical. 4. Abdominal aortic aneurysm. We are aware and this is inoperable. 5. Severe coronary artery disease. Aware. The patient is on home medications. He is not on aspirin due to his low hemoglobin and hematocrit. 6. The patient has EDIS hose for deep venous thrombosis prophylaxis. 7. Blood pressure is stable. cc: Ramon Rosenberg MD
[2019-01-11] MEDS ORDERED: NS 500 ML IV SCH (11:00)
[2019-01-11] MEDS: LIPITOR PO SCH (21:57)
[2019-01-11] MEDS: TYLENOL PO PRN (21:58)
[2019-01-12] MEDS: OXY IR PO PRN ×3 (00:11→23:34)
[2019-01-12] MEDS: ZOSYN 2.25 GM in NS 50 ML IV SCH ×2 (01:29→06:44)
[2019-01-12 06:16] LABS: BASO# 0.01 X1000 (0.0-0.2); BASO% 0.1 % (0.0-0.8); EOS# 0.52 X1000 (0.0-0.7); HEMATOCRIT 25.6 % (42.0-52.0); HEMOGLOBIN 7.9 g/dL (14.0-18.0); IMM GRAN# 0.02 X1000 (0.0-0.04); IMM GRAN% 0.3 % (0.0-0.5); LYMPH# 0.78 X1000 (1.2-3.4); LYMPH% 10.4 % (20.5-51.1); MCH 29.2 PG (27-31); MCHC 30.9 g/dL (33-37); MCV 94.5 FL (81-99); MONO# 1.28 X1000 (0.11-0.59); MONO% 17.1 % (1.7-9.3); MPV 9.9 FL (7.4-10.4); NEUT# 4.86 X1000 (1.4-6.5); NEUT% 65.1 % (42.2-75.2); PLT 167 X1000 (130-400); RBC 2.71 XMIL (4.7-6.1); RDW 14.4 % (11.5-14.5); WBC 7.47 X1000 (4.8-10.8)
[2019-01-12 06:26] LABS: CALCIUM 8.9 mg/dL (8.8-10.2); POTASSIUM 4.5 mmol/L (3.5-5.1)
[2019-01-12] MEDS: RANEXA PO SCH ×2 (08:14→23:34)
[2019-01-12] MEDS: QUININE SULFATE PO SCH (08:14)
[2019-01-12] MEDS: PERIDEX MT SCH ×2 (08:14→23:33)
[2019-01-12] MEDS: PEPCID PO SCH ×2 (08:14→23:34)
[2019-01-12] MEDS ORDERED: EPOGEN SUBQ ONE ×2 (08:28→09:00)
--- NOTE | 2019-01-12 09:58 | PROGRESS NOTE ---
DATE: 01/12/2019 SUBJECTIVE: Mr. Dean is lying in bed this morning. Overall, he is doing well, not really complaining of a lot of pain. OBJECTIVE: Left lower extremity exam: Dressing is clean, dry, and intact. He is neurovascularly intact to the left lower extremity. ASSESSMENT: Status post left trochanteric femoral nailing. PLAN: Mr. Dean has done great. His pain is under control. He is weight bear as tolerated to the left lower extremity. He is to work with Physical Therapy. Really getting stronger. He should be able to be discharged today. I will see him in 2 weeks in clinic. We will take the hussein out at that time. cc: MD Ramon Saenz MD
[2019-01-12] MEDS: PRECARE PO SCH (10:12)
--- NOTE | 2019-01-12 10:36 | PROGRESS NOTE ---
DATE: 01/12/2019 SUBJECTIVE: The patient has no complaints. He did receive his transfusion yesterday. We discussed his continued low blood count. He seems to be doing reasonably well with physical therapy. He is eagerly awaiting rehabilitation. OBJECTIVE: Vital signs: The patient is afebrile. Temperature 98.2 degrees, pulse rate 68, blood pressure 140/60, 98% saturated on room air. Lungs: Clear. Cardiovascular: He has a regular rhythm with a 2/6 systolic ejection murmur (old). Extremities: The patient has on EDIS hose. There is no significant edema in the lower extremities. The surgical wound was not viewed. LABORATORY DATA: White count 7.4, hemoglobin 7.9, hematocrit 25.6, BUN 48, creatinine 2.0. ASSESSMENT AND PLAN: 1. Fracture repair is complete and the patient is progressing with physical therapy. We were looking for rehab at [facility]. 2. The patient has had no further fever. We will discontinue antibiotics. 3. The patient received another unit of packed red cells yesterday. His hemoglobin only went up 0.4. We had a discussion about his chronic kidney dysfunction, the aortic aneurysm which is also impeding blood flow to the kidneys and how that affects his blood count. I plan to transfuse him another unit today and give him a shot of Epo and see if we can move him towards rehabilitation a little bit sooner. 4. Abdominal aortic aneurysm. Aware. 5. Severe coronary artery disease. Aware. 6. The patient is using EDIS hose for deep venous thrombosis prophylaxis. 7. Blood pressure is stable. 8. DNR level 1. cc: Ramon Rosenberg MD
[2019-01-12] MEDS: ZOFRAN IV PRN ×2 (14:04→23:33)
[2019-01-12] MEDS: LIPITOR PO SCH (23:34)
[2019-01-13] MEDS: RANEXA PO SCH (09:09)
[2019-01-13] MEDS: PERIDEX MT SCH (09:10)
[2019-01-13] MEDS: QUININE SULFATE PO SCH (09:10)
[2019-01-13] MEDS: PRECARE PO SCH (09:10)
[2019-01-13] MEDS: PEPCID PO SCH (09:10)
--- NOTE | 2019-01-13 09:50 | PROGRESS NOTE ---
DATE: 01/13/2019 SUBJECTIVE: The patient finally got another transfusion of a unit of packed cells yesterday. He is feeling better. He was able to walk to the door yesterday with Physical Therapy. OBJECTIVE: Vital signs: Temperature maximum 99.6. Temperature now 98.2, pulse 67, respirations 12, blood pressure 151/50. My physical exam was limited as the patient had a bowel movement in the bed and was quite a mess at the time of my examination. He was unaware that he had an accident. ASSESSMENT AND PLAN: 1. Fracture repair is complete. The patient is progressing with physical therapy. We are looking for rehab at [facility]. 2. The patient still has low-grade fever. We discontinued antibiotics yesterday. We will continue to monitor this. 3. The patient had been transfused yesterday. We are going to give some time to settle and then if he is in the hospital tomorrow, we will recheck his hemoglobin and hematocrit. 4. Abdominal aortic aneurysm, aware. 5. Coronary artery disease, aware. 6. The patient will continue in [facility] for DVT prophylaxis. 7. Blood pressure stable. 8. Do Not Resuscitate level 1. cc: Ramon Rosenberg MD
[2019-01-13 11:32] VITALS: BP 145/56
--- NOTE | 2019-01-13 13:14 | Diag Imaging Result Doc PS360 ---
EXAM: CHEST-PORTABLE HISTORY: REHAB PLACEMENT TECHNIQUE: Chest single view COMPARISON: 01/19/2018 FINDINGS: The lungs are well expanded. The heart is not enlarged. Sternal wires are present. The vessels are not distended. There are no infiltrates. No effusion identified. There has been surgery to the lower neck. IMPRESSION: No acute abnormality. Electronically signed by Aashish Mcclendon 01/13/2019 1:12 PM
--- NOTE | 2019-01-13 13:15 | DISCHARGE SUMMARY ---
ADMISSION DATE: 01/08/2019 DISCHARGE DATE: 01/13/2019 DISCHARGE DIAGNOSES: 1. Fall. 2. Left femoral intertrochanteric fracture. 3. Ileal conduit. 4. Abdominal aortic aneurysm. 5. Chronic ischemic heart disease. 6. Chronic anemia. 7. Stage 3 kidney disease. 8. Peripheral vascular disease. 9. Hypercholesterolemia. OPERATIVE PROCEDURES: Intramedullary nail. CONSULTATIONS: Dr. Menjivar. HOSPITAL COURSE: 88-year-old white male fell at home accidentally fracturing his left femur. He was admitted to the hospital. Dr. Menjivar was consulted and performed intramedullary nail on the day after admission. He tolerated the procedure well. The patient has a chronic baseline anemia, which worsened postoperatively, partially due to trauma and partially likely due to underproduction from chronic renal insufficiency. He was transfused a total of 3 units of packed red cells and this got him close to his baseline. The patient's pressure was in good shape throughout. The patient did spike a fever briefly postoperatively and was given some antibiotics, but blood cultures and other studies were negative, so this was not continued. 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 On the day prior to discharge, the patient was able to walk to the door with assistance and was doing quite well with physical therapy. DISPOSITION: He is discharged to [facility] for rehabilitation with the expectation that he will return home at some point. cc: Ramon Rosenberg MD
== END 2019-01-13 14:49 | DRG 482 ==
LOC: ED 02:35 → 4N 09:32
PROVIDERS: ADMIT Internal Medicine; ATTEND Internal Medicine
CPT/HCPCS: 36430; 71010; 71045; 73502; 76000; 80048; 80053; 83880; 84484; 85014; 85018; 85025; 85610; 85730; 86850; 86900; 86901; 86920; 93005; 94761; 94799; 96374; 96376; 97116; 97162; 97530; 99285; A9270; J0690; J0885; J2270; J2370; J2405; J2543; J7030; J7040; P9016

== ENCOUNTER 2019-11-12 11:23 | Inpatient (IN) ==
[2019-11-12] MEDS ORDERED: NS 1,000 ML IV ONE ×2 (12:17→14:43)
[2019-11-12] MEDS ORDERED: MORPHINE IV ONE (12:17)
[2019-11-12] MEDS ORDERED: ZOFRAN IV ONE (12:17)
[2019-11-12] MEDS ORDERED: DIPHTHERIA/TETANUS ADULT IM ONE (12:17)
[2019-11-12] MEDS ORDERED: NEOSPORIN OINTMENT PACKET TOP ONE (12:18)
[2019-11-12 12:37] LABS: BASO# 0.01 X1000 (0.0-0.2); BASO% 0.1 % (0.0-0.8); EOS# 0.09 X1000 (0.0-0.7); EOS% 0.8 % (0.0-10.0); HEMATOCRIT 37.5 % (42.0-52.0); HEMOGLOBIN 11.9 g/dL (14.0-18.0); IMM GRAN# 0.03 X1000 (0.0-0.04); IMM GRAN% 0.3 % (0.0-0.5); LYMPH# 1.37 X1000 (1.2-3.4); LYMPH% 12.1 % (20.5-51.1); MCH 31.1 PG (27-31); MCHC 31.7 g/dL (33-37); MCV 97.9 FL (81-99); MONO# 1.11 X1000 (0.11-0.59); MONO% 9.8 % (1.7-9.3); MPV 10.2 FL (7.4-10.4); NEUT# 8.74 X1000 (1.4-6.5); NEUT% 76.9 % (42.2-75.2); PLT 184 X1000 (130-400); RBC 3.83 XMIL (4.7-6.1); RDW 13.6 % (11.5-14.5); WBC 11.35 X1000 (4.8-10.8)
[2019-11-12 12:50] LABS: INR 1.11; PROTIME 14.5 Seconds (11.0-16.0)
[2019-11-12 12:51] LABS: PTT 26.3 Seconds (22.3-41.8)
--- NOTE | 2019-11-12 12:51 | Diag Imaging Result Doc PS360 ---
CHEST-PORTABLE - 11/12/2019 INDICATION: fall COMPARISON: 01/13/2019 FINDINGS: Stable sternotomy wires. The lungs are clear. Heart size is normal. No pneumothorax or pleural effusion. IMPRESSION: Negative exam. Electronically signed by Deni Sales 11/12/2019 12:49 PM
--- NOTE | 2019-11-12 13:06 | Diag Imaging Result Doc PS360 ---
CT PELVIS W/O CONTRAST - 11/12/2019 INDICATION: fall injury left hip/pelvis COMPARISON: 03/31/2018 FINDINGS: There is a left femoral neck stabilization giovany. Alignment is anatomic. No hardware fracture or loosening. There is significant bony bridging at the intertrochanteric fracture. No new fractures visible. Stable abdominal aortic aneurysm and severe vascular disease of the pelvis and legs. Stable advanced lumbar spondylosis. IMPRESSION: No acute injury. This exam was performed using automated exposure control, adjustment of mA or kV according to patient size, and/or use of iterative reconstruction technique Electronically signed by Deni Sales 11/12/2019 1:03 PM
--- NOTE | 2019-11-12 13:11 | Diag Imaging Result Doc PS360 ---
EXAM: CT HEAD/C-SPINE W/O CONTRAST - 11/12/2019 HISTORY: head injury/pain TECHNIQUE: CT head/cervical spine without contrast COMPARISON: 12/19/2016 CT head FINDINGS: CT head: There are mild atrophic changes similar to prior. There is no evidence of intracranial hemorrhage, mass effect, midline shift, or hydrocephalus. There is no evidence of infarct, although acute infarcts may not be immediately visible. There is no evidence of skull fracture. There are prominent venous lakes noted at the occipital skull similar to prior. CT cervical spine: There are postsurgical changes of anterior fusion at C4-C5-C6. There is degenerative disc and degenerative facet disease. There is a partially calcified posterior disc protrusion which produces moderate spinal stenosis at C3-4. There is no fracture, subluxation, or precervical soft tissue swelling identified. IMPRESSION: CT head: No visible acute intracranial abnormality. No evidence of intracranial injury. CT cervical spine: Anterior surgical fusion at C4-C5-C6. Partially calcified posterior disc protrusion which produces moderate spinal stenosis at C3-4. No evidence of fracture or subluxation. This exam was performed using automated exposure control, adjustment of mA or kV according to patient size, and/or use of iterative reconstruction technique. Electronically signed by Avel Cortez 11/12/2019 1:09 PM
--- NOTE | 2019-11-12 13:17 | Diag Imaging Result Doc PS360 ---
EXAM: CT MAXILLOFACIAL(SINUS) W/O CO - 11/12/2019 HISTORY: fall, facial injury TECHNIQUE: CT facial bones without contrast COMPARISON: 12/19/2016 FINDINGS: There is no evidence of retrobulbar orbital hematoma. The globes of the orbits appear grossly intact. There is a 1.1 cm nodular subcutaneous lesion noted at the left submandibular region which is grossly similar to prior. There is no fracture identified. There is no paranasal sinus fluid identified. There is a tiny effusion noted at the left inferior mastoids. The bilateral mastoids otherwise appear clear. IMPRESSION: No evidence of fracture. Electronically signed by Avel Cortez 11/12/2019 1:15 PM
[2019-11-12 13:19] LABS: ALB/GLOB RATIO 1.3; ALBUMIN 4.1 g/dL (3.5-5.0); CALCIUM 9.8 mg/dL (8.8-10.2); CREATININE 2.4 mg/dL (0.7-1.2); MAGNESIUM 1.6 mg/dL (1.5-2.7); POTASSIUM 4.4 mmol/L (3.5-5.1); TOTAL BILIRUBIN 0.46 mg/dL (0.20-1.00); TOTAL PROTEIN 7.3 g/dL (6.3-8.3)
--- NOTE | 2019-11-12 13:19 | EKG Report ---
Test Performed on : 11/12/2019 11:46:54 AM Test Reason : weakness Blood Pressure : / mmHG Vent. Rate : 106 BPM Atrial Rate : 104 BPM P-R Int : 000 ms QRS Dur : 094 ms QT Int : 342 ms P-R-T Axes : 000 043 080 degrees QTc Int : 454 ms Accelerated Junctional rhythm. Abnormal ECG When compared with ECG of 08-JAN-2019 04:38, Junctional rhythm. has replaced Sinus rhythm. Vent. rate has increased BY 43 BPM Unconfirmed Result
--- NOTE | 2019-11-12 13:28 | Diag Imaging Result Doc PS360 ---
EXAM: US AORTA - 11/12/2019 HISTORY: weak, hx of 6.4cmAAA TECHNIQUE: Ultrasound abdominal aorta COMPARISON: 01/13/2017 FINDINGS: There are artifacts from bowel gas which limit detail. There is aneurysmal dilatation of the mid aorta. This measures approximately 6.4 cm in AP dimension by 7.8 cm in transverse dimension. This measured 6.2 x 6.7 cm on the prior exam. There is aneurysmal dilatation of the distal aorta measuring 3.5 x 3.6 cm in AP and transverse dimensions, respectively. This measured 3.6 x 3.7 cm on the prior exam. There is no discrete retroperitoneal hematoma identified. IMPRESSION: 6.4 x 7.8 cm aneurysm at mid abdominal aorta. This measured 6.2 x 6.7 cm on the prior exam. 3.5 x 3.6 cm aneurysm at distal abdominal aorta, which is essentially stable compared to prior. Electronically signed by Avel Cortez 11/12/2019 1:26 PM
[2019-11-12] MEDS ORDERED: ROCEPHIN 1 GM in NS 50 ML IV ONE (13:51)
[2019-11-12 13:53] LABS: URINE SOURCE CLEAN CATCH
[2019-11-12 14:04] LABS: BILIRUBIN URINE NEGATIVE (NEGATIVE); BLOOD URINE LARGE (NEGATIVE); COLOR BROWN; GLUCOSE URINE NEGATIVE (NEGATIVE); KETONE URINE NEGATIVE (NEGATIVE); LEUKOCYTES URINE SMALL (NEGATIVE); NITRITE URINE NEGATIVE (NEGATIVE); PROTEIN URINE 300 mg/dL (NEGATIVE); SP GRAVITY URINE 1.018; TURBIDITY URINE TURBID (CLEAR); UR EPITHELIAL CELLS <10 /HPF (<10); URINE BACTERIA NEGATIVE /HPF; URINE RBC TNTC /HPF (<10); URINE WBC TNTC /HPF (<10); UROBILINOGEN URINE NORMAL (NORMAL)
[2019-11-12 14:13] LABS: URINE CASTS NONE SEEN; URINE CRYSTALS NONE SEEN; URINE SMALL ROUND CELLS NONE SEEN; URINE YEAST NONE SEEN
--- NOTE | 2019-11-12 14:39 | PROVIDER DOCUMENTATION ---
This chart was entered by Kiara Christian Scribe, acting as scribe for Jayden Martínez MD. HPI-Head Injury - General Stated Complaint: FALL FROM STANDING Time Seen by Provider: 11/12/19 11:53 Source: patient, family (son) Allergies/Adverse Reactions: Patient Allergies Allergy/AdvReac Type Severity Reaction Status Date / Time meperidine HCl * Allergy HIVES Verified 11/12/19 12:34 [From Demerol] Home Medications: Home Medication List Medication Instructions Recorded Confirmed Last Taken Type Aspirin 81 mg PO DAILY 07/29/16 11/12/19 01/07/19 08:00 History Famotidine [Pepcid] 20 mg PO BID tablet 12/01/17 11/12/19 01/07/19 20:00 Rx Ranolazine E.r. [Ranexa] 500 mg PO Q12HR tablet 02/05/18 11/12/19 01/07/19 20:00 Rx Quinine Sulfate 324 mg PO DAILY capsule 01/13/19 11/12/19 Unknown Rx Iron Fum/Folic Acid/Mv,Min 15 106 mg PO DAILY 11/12/19 11/12/19 Unknown History [Centratex Capsule] Mirtazapine 15 mg PO HS 11/12/19 11/12/19 Unknown History Ondansetron [Zofran] 4 mg PO Q6H PRN PRN 11/12/19 11/12/19 Unknown History Saccharomyces Boulardii [Florastor] 250 mg PO BID 11/12/19 11/12/19 Unknown History - History of Present Illness-Head Injury Nature of Presenting Problem: Patient is a 89 year old male who presents to the ED via EMS with a head injury. States he was walking to the bathroom and became weak and fell hitting his face. Denies LOC. Reports he thinks he has a kidney infection. States chills and nausea. Patient's son states patient fell 3 weeks ago injuring his left hip then was seen at PCP's office and was informed the hip was not fractured. Patient states he has a 6.4 cm AAA currently. Head Injury Location: reports: other (nose and upper lip) Other injuries associated with incident:: reports: none Quality of Pain: reports: aching Severity: reports: mild Onset/Duration: reports: just prior to arrival Timing: reports: still present Method of Injury: reports: fell Any recent trauma/injury?: reports: to head Loss of Consciousness: no loss of consciousness Injury Associated Symptoms: reports: weakness Locality of Occurance: Home Similar Symptoms Previously?: Yes Recently seen or treated by another doctor?: Yes Review of Systems - Adult - REVIEW OF SYSTEMS - ADULT Constitutional: reports: see HPI, chills. denies: fever, fatique Eyes: reports: no symptoms reported Ears, Nose, Mouth & Throat: reports: see HPI, nose pain, mouth/dental pain (upper lip pain). denies: ear pain, throat pain Cardiovascular: reports: no symptoms reported Respiratory: reports: no symptoms reported Gastrointestinal: reports: see HPI, nausea. denies: abdominal pain, vomiting Genitourinary: reports: no symptoms reported Musculoskeletal: reports: see HPI, other (left hip pain). denies: back pain, neck pain Integumentary: reports: no symptoms reported Neurological: reports: no symptoms reported Psychiatric: reports: no symptoms reported Endocrine: reports: no symptoms reported Hematologic/Lymphatic: reports: no symptoms reported Allergic/Immunologic: reports: no symptoms reported All Other Systems: Reviewed and Negative Past History - Adult - PAST MEDICAL HISTORY-ADULT Review of Records: reports: Old Records Reviewed, Nursing Assessment Review, Medications Reviewed, Social history reviewed & non-contributory. Major Childhood Illnesses: reports: denies history Cardiovascular: reports: CAD, HTN, hyperlipidemia, [place] Respiratory: reports: denies history Gastrointestinal: reports: GERD Obstetrical/Gynecological: reports: denies history Genitourinary: reports: cancer (bladder ), kidney disease, kidney stones Musculoskeletal: reports: denies history Neurological: reports: denies history Psychiatric: reports: denies history Endocrine/Immune: reports: denies history Other Conditions: reports: other cancer (multiple myleoma , bone ca) - PRIOR SURGERIES/PROCEDURES Surgical/Procedure History: reports: CABG (x2), indwelling device, other (removal of bladder, cystosostomy, neck and back surgery, Aorta repair) - PRIOR HOSPITALIZATIONS Prior Hospitalizations: reports: for other non-related - IMMUNIZATION STATUS Childhood Immunizations: See Nurse Assessment Flu Vaccine: See Nurse Assessment - FAMILY HISTORY Family History: reviewed, not pertinent - SOCIAL HISTORY Smoking: cigarettes (former) Substance Use: denies Living Situation: care facility (SNF) Physical Exam- Neurological - Physical Exam-Neuro Initial Vital Signs Reviewed: Yes General Appearance: alert, no apparent distress. negative: lethargic HENMT: moist mucous membranes, other (abrasion to left upper lip and left side of nose.). negative: angioedema Head Injury: other (abrasion to left upper lip and left side of nose.). negative: flap, swelling Neck: non-tender, normal inspection. negative: limited range of motion Respiratory: chest non-tender, lungs clear, normal breath sounds. negative: respiratory distress, crackles, wheezing Cardiovascular: tachycardia, systolic murmur (1/6 systolic murmur at upper sternal border). negative: gallop/S3 Abdominal Exam: normal bowel sounds, non tender, soft, other (colostomy to RLQ. well healed midline scar). negative: hernia, mass Extremity: non-tender, other (skin tear to left elbow.). 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 negative: facial droop Neurologic: grossly normal. negative: aphasia, facial droop Integumentary: normal turgor, warm/dry, abrasion(s) (left upper lip and left side of nose), other (seborrheic keratosis to face and bilateral upper extremities. skin tear to left elbow.). negative: ecchymosis, laceration(s) Psych/Mental Status: normal mood/affect, oriented x 3. negative: anxious Progress - PLAN OF CARE/RESULTS Progress/Plan/Lab Results: Vital Signs - 8 hr 11/12/19 11:36 Temperature 98.1 F Pulse Rate 100 H Respiratory Rate 16 Blood Pressure 105/71 O2 Sat by Pulse Oximetry 97 11/12/19 12:34 Influenza Screen - Final Nasopharyngeal Laboratory Results - last 24 hr 11/12/19 11/12/19 11/12/19 12:26 12:26 12:26 WBC 11.35 H RBC 3.83 L Hgb 11.9 L Hct 37.5 L MCV 97.9 MCH 31.1 H MCHC 31.7 L RDW Std Deviation 13.6 Plt Count 184 MPV 10.2 Immature Gran % (Auto) 0.3 Neut % (Auto) 76.9 H Lymph % (Auto) 12.1 L Ida % (Auto) 9.8 H Eos % (Auto) 0.8 Baso % (Auto) 0.1 Immature Gran # (Auto) 0.03 Neut # (Auto) 8.74 H Lymph # (Auto) 1.37 Ida # (Auto) 1.11 H Eos # (Auto) 0.09 Baso # (Auto) 0.01 PT INR PTT (Actin FS) Sodium 139 Potassium 4.4 Chloride 99 Carbon Dioxide 21 L Anion Gap 19 BUN 65 H Creatinine 2.4 H Estimated GFR/1.73 m2 26 BUN/Creatinine Ratio 27 Glucose 120 H Calculated Osmolality 297 Calcium 9.8 Magnesium 1.6 Total Bilirubin 0.46 AST 37 H ALT 30 Alkaline Phosphatase 149 H Troponin T Yym-H-Zkltzvkgnox Pept Total Protein 7.3 Albumin 4.1 Globulin 3.2 Albumin/Globulin Ratio 1.3 Plasma Lactate TSH 1.77 Urine Source Urine Color Urine Turbidity Urine pH Ur Specific [place] Urine Protein Ur Glucose (Stick) Ur Ketones (Stick) Urine Blood Urine Nitrite Urine Bilirubin Urobilinogen Dipstick Urine Leukocytes Urine WBC (Auto) Urine RBC (Auto) U Epithel Cells (Auto) Urine Bacteria (Auto) Urine Crystals Small Round Cells Urine Casts Urine Yeast-like Cells 11/12/19 11/12/19 11/12/19 12:26 12:26 12:26 WBC RBC Hgb Hct MCV MCH MCHC RDW Std Deviation Plt Count MPV Immature Gran % (Auto) Neut % (Auto) Lymph % (Auto) Ida % (Auto) Eos % (Auto) Baso % (Auto) Immature Gran # (Auto) Neut # (Auto) Lymph # (Auto) Ida # (Auto) Eos # (Auto) Baso # (Auto) PT 14.5 INR 1.11 PTT (Actin FS) 26.3 Sodium Potassium Chloride Carbon Dioxide Anion Gap BUN Creatinine Estimated GFR/1.73 m2 BUN/Creatinine Ratio Glucose Calculated Osmolality Calcium Magnesium Total Bilirubin AST ALT Alkaline Phosphatase Troponin T Vdg-I-Mubdrkduyjw Pept 403 Total Protein Albumin Globulin Albumin/Globulin Ratio Plasma Lactate 2.3 H TSH Urine Source Urine Color Urine Turbidity Urine pH Ur Specific [place] Urine Protein Ur Glucose (Stick) Ur Ketones (Stick) Urine Blood Urine Nitrite Urine Bilirubin Urobilinogen Dipstick Urine Leukocytes Urine WBC (Auto) Urine RBC (Auto) U Epithel Cells (Auto) Urine Bacteria (Auto) Urine Crystals Small Round Cells Urine Casts Urine Yeast-like Cells 11/12/19 11/12/19 12:26 13:27 WBC RBC Hgb Hct MCV MCH MCHC RDW Std Deviation Plt Count MPV Immature Gran % (Auto) Neut % (Auto) Lymph % (Auto) Ida % (Auto) Eos % (Auto) Baso % (Auto) Immature Gran # (Auto) Neut # (Auto) Lymph # (Auto) Ida # (Auto) Eos # (Auto) Baso # (Auto) PT INR PTT (Actin FS) Sodium Potassium Chloride Carbon Dioxide Anion Gap BUN Creatinine Estimated GFR/1.73 m2 BUN/Creatinine Ratio Glucose Calculated Osmolality Calcium Magnesium Total Bilirubin AST ALT Alkaline Phosphatase Troponin T 0.018 Npd-L-[place] Pept Total Protein Albumin Globulin Albumin/Globulin Ratio Plasma Lactate TSH Urine Source CLEAN CATCH Urine Color BROWN Urine Turbidity TURBID Urine pH 8.0 Ur Specific [place] 1.018 Urine Protein 300 A Ur Glucose (Stick) NEGATIVE Ur Ketones (Stick) NEGATIVE Urine Blood LARGE A Urine Nitrite NEGATIVE Urine Bilirubin NEGATIVE Urobilinogen Dipstick NORMAL Urine Leukocytes SMALL A Urine WBC (Auto) TNTC A Urine RBC (Auto) TNTC A U Epithel Cells (Auto) <10 Urine Bacteria (Auto) NEGATIVE Urine Crystals NONE SEEN Small Round Cells NONE SEEN Urine Casts NONE SEEN Urine Yeast-like Cells NONE SEEN Orders Category Date Time Status Nursing- Obtain EKG ONCE Care 11/12/19 11:40 Active Resuscitation Status Routine Care 11/12/19 14:13 Ordered Saline Loc NOW Care 11/12/19 12:14 Active Wound Care DIRECTED Care 11/12/19 12:17 Active CHEST-PORTABLE [RAD] Stat Exams 11/12/19 12:[address] HEAD/C-SPINE W/O CONTRAST [CT] Stat Exams 11/12/19 12:[address] MAXILLOFACIAL(SINUS) W/O CO [CT] Stat Exams 11/12/19 12:[address] PELVIS W/O CONTRAST [CT] Stat Exams 11/12/19 12:13 Completed US AORTA [US] Stat Exams 11/12/19 12:13 Completed BLOOD CULTURE [BLDCUL] Stat Lab 11/12/19 13:27 Results CBC WITH ELECTRONIC DIFF [HEME] Stat Lab 11/12/19 12:26 Completed COMPREHENSIVE METABOLIC PANEL [CHEM] Stat Lab 11/12/19 12:26 Completed INFLUENZA SCREEN A/B Stat Lab 11/12/19 12:34 Completed LACTATE, PLASMA [CHEM] Stat Lab 11/12/19 12:26 Completed MAGNESIUM [CHEM] Stat Lab 11/12/19 12:26 Completed MYOGLOBIN SERUM [] Stat Lab 11/12/19 13:53 Ordered MYOGLOBIN URINE [TACOMA] Stat Lab 11/12/19 13:27 Received PRO B-NATRIURETIC PEPTIDE Stat Lab 11/12/19 12:26 Completed PROTIME WITH INR [COAG] Stat Lab 11/12/19 12:26 Completed PTT [COAG] Stat Lab 11/12/19 12:26 Completed TROPONIN T Stat Lab 11/12/19 12:26 Completed TSH Stat Lab 11/12/19 12:26 Completed URINALYSIS W/POSS RFLX CULT [URINALYSIS] Stat Lab 11/12/19 13:27 Completed URINE CULTURE [RM] Routine Lab 11/12/19 13:27 Received URINE MANUAL MICROSCOPIC [URINALYSIS] Stat Lab 11/12/19 13:27 Completed 0.9% Sodium Chloride Inj [Ns] 1,000 ml Med 11/12/19 12:17 Discontinued IV 999 mls/hr CefTRIAXONE [Rocephin] 1 gm Med 11/12/19 13:51 Discontinued 0.9% Sodium Chloride Inj [Ns] 50 ml IV NOW Diphtheria/Tetanus Adult Med 11/12/19 12:17 Discontinued 0.5 ml IM .ONCE ONE Morphine Med 11/12/19 12:17 Discontinued 4 mg IV NOW ONE Neomycin/Bacitrcn/Polymyx Oint [Neosporin Ointment Med 11/12/19 12:18 Discontinued Packet] 1 each TOP NOW ONE Ondansetron [Zofran] Med 11/12/19 12:17 Discontinued 4 mg IV NOW ONE EKG [EKG] Stat Ther 11/12/19 12:15 Draft Result Diagrams: 11/12/19 12:26 11/12/19 12:26 - REASSESSMENT Reassessment #1 Time Reassessed: 13:52 Status: improving (Urine is almost black in color. Will give rocephin/IVF. Renal function is a lttle worse than usual. Also, patients' AAAs discussed, he is aware of them and their size and does not wish to have surgery, aware that he will if/when they rupture.) Reassessment #2 Time Reassessed: 14:06 Status: improving (States feels a little better after meds and fluids. Given Rocephin for UTI) Reassessment #3 Time Reassessed: 14:12 Status: unchanged (Had a long talk at bedside with patient and family. Patient would like to be made DNR, does not want any resuscitative efforts (pressors, CPR, defib/cardioversion, intubation) should he pass.) - EKG 1 Time of EKG reading by physician:: 11:46 EKG Read and Signed by:: Jayden Martínez EKG Interpretation (*Must complete 3 of following elements*): Abnormal Rate: 106 Rhythm: sinus tach QRS: LVH Comments: artifact present; early transition; no STEMI - XRAY 1 XRAY Study: Chest Impression: See EMR Report (CHEST-PORTABLE - 11/12/2019 INDICATION: fall COMPARISON: 01/13/2019 FINDINGS: Stable sternotomy wires. The lungs are clear. Heart size is normal. No pneumothorax or pleural effusion. IMPRESSION: Negative exam. Electronically signed by Deni Sales 11/12/2019 12:49 PM 11/12/19 1249 Interpreting Physician: Deni Sales MD Dictated Date/Time: 11/12/19 1249 cc: Jayden Martínez MD; Ramon Rosenberg MD) - CT/MRI 1 CT Study: Cervical Spine, Head Impression: See EMR Report ( EXAM: CT HEAD/C-SPINE W/O CONTRAST - 11/12/2019 HISTORY: head injury/pain TECHNIQUE: CT head/cervical spine without contrast COMPARISON: 12/19/2016 CT head FINDINGS: CT head: There are mild atrophic changes similar to prior. There is no evidence of intracranial hemorrhage, mass effect, midline shift, or hydrocephalus. There is no evidence of infarct, although acute infarcts may not be immediately visible. There is no evidence of skull fracture. There are prominent venous lakes noted at the occipital skull similar to prior. CT cervical spine: There are postsurgical changes of anterior fusion at C4-C5-C6. There is degenerative disc and degenerative facet disease. There is a partially calcified posterior disc protrusion which produces moderate spinal stenosis at C3-4. There is no fracture, subluxation, or precervical soft tissue swelling identified. IMPRESSION: CT head: No visible acute intracranial abnormality. No evidence of intracranial injury. CT cervical spine: Anterior surgical fusion at C4-C5-C6. Partially calcified posterior disc protrusion which produces moderate spinal stenosis at C3-4. No evidence of fracture or subluxation. This exam was performed using automated exposure control, adjustment of mA or kV according to patient size, and/or use o f iterative reconstruction technique. Electronically signed by Avel Cortez 11/12/2019 1:09 PM 11/12/19 1309 Interpreting Physician: Avel Cortez MD Dictated Date/Time: 11/12/19 1300 cc: Jayden Martínez MD; Ramon Rosenberg MD) 2 CT Study: Sinuses Impression: See EMR Report ( EXAM: CT MAXILLOFACIAL(SINUS) W/O CO - 11/12/2019 HISTORY: fall, facial injury TECHNIQUE: CT facial bones without contrast COMPARISON: 12/19/2016 FINDINGS: There is no evidence of retrobulbar orbital hematoma. The globes of the orbits appear grossly intact. There is a 1.1 cm nodular subcutaneous lesion noted at the left submandibular region which is grossly similar to prior. There is no fracture identified. There is no paranas al sinus fluid identified. There is a tiny effusion noted at the left inferior mastoids. The bilateral mastoids otherwise appear clear. IMPRESSION: No evidence of fracture. Electronically signed by Avel Cortez 11/12/2019 1:15 PM 11/12/19 1315 Interpreting Physician: Avel Cortez MD Dictated Date/Time: 11/12/19 1309 cc: Jayden Martínez MD; Ramon Rosenberg MD) 3 CT Study: Pelvis Impression: See EMR Report (CT PELVIS W/O CONTRAST - 11/12/2019 INDICATION: fall injury left hip/pelvis COMPARISON: 03/31/2018 FINDINGS: There is a left femoral neck stabilization giovany. Alignment is anatomic. No hardware fracture or loosening. There is significant bony bridging at the intertrochanteric fracture. No new fractures visible. Stable abdominal aortic aneurysm and severe vascular disease of the pelvis and legs. Stable advanced lumbar spondylosis. IMPRESSION: No acute injury. This exam was performed using automated exposure control, adjustment of mA or kV according to patient size, and/or use of iterative reconstruction technique Electronically signed by Deni Sales 11/12/2019 1:03 PM 11/12/19 1303 Interpreting Physician: Deni Sales MD Dictated Date/Time: 11/12/19 1301 cc: Jayden Martínez MD; Ramon Rosenberg MD) - ULTRASOUND (By Radiology) 1 US Study: Aorta Impression: See EMR Report ( EXAM: US AORTA - 11/12/2019 HISTORY: weak, hx of 6.4cmAAA TECHNIQUE: Ultrasound abdominal aorta COMPARISON: 01/13/2017 FINDINGS: There are artifacts from bowel gas which limit detail. There is aneurysmal dilatation of the mid aorta. This measures approximately 6.4 cm in AP dimension by 7.8 cm in transverse dimension. This measured 6.2 x 6.7 cm on the prior exam. There is aneurysmal dilatation of the distal aorta measuring 3.5 x 3.6 cm in AP and transverse dimensions, respectively. This measured 3.6 x 3.7 cm on the prior exam. There is no discrete retroperitoneal hematoma identified. IMPRESSION: 6.4 x 7.8 cm aneurysm at mid abdominal aorta. This measured 6.2 x 6.7 cm on the prior exam. 3.5 x 3.6 cm aneurysm at distal abdominal aorta, which is essentially stable compared to prior. Electronically signed by Avel Cortez 11/12/2019 1:26 PM 11/12/19 1326 Interpreting Physician: Avel Cortez MD Dictated Date/Time: 11/12/19 1320 cc: Jayden Martínez MD; Ramon Rosenberg MD) - CONSULTS/PCP/HOSPITALIST Notification #1 *Consult/PCP/Hospitalist*: Haley paged at 1405 Time Discussed: 14:38 Reason/Comments: Dr. Martínez consulted with Dr. Cortes about patient Consult Disposition: Admit Departure - Departure Date of Disposition Decision: 11/12/19 Time of Disposition Decision: 14:07 DIAGNOSIS: Syncope, near, Acute hemorrhagic cystitis, AAA (abdominal aortic aneurysm), not a candidate for repair Fall as cause of accidental injury at home as place of occurrence Qualifiers: Encounter type: initial encounter Qualified Code(s): W19.XXXA - Unspecified fall, initial encounter; Y92.009 - Unspecified place in unspecified non- institutional (private) residence as the place of occurrence of the external cause Abrasion of vermilion border of upper lip Qualifiers: Encounter type: initial encounter Qualified Code(s): S00.511A - Abrasion of lip, initial encounter Skin tear of left elbow without complication Qualifiers: Encounter type: initial encounter Qualified Code(s): S51.012A - Laceration with out foreign body of left elbow, initial encounter Disposition: ADMITTED INPATIENT 09 Certified Medical Emergency: Emergent Condition: Fair Referrals and Follow-Ups: Ramon Rosenberg MD [Primary Care Provider] - - Critical Care Note This patient required my direct & personal management of CC.: Yes Total Time (mins): 45 Critical Care Statement: This patient required my direct personal management to treat or rule out processes, the absence of which, could potentiallly result in sudden, clinically significant life or limb threatening deterioration. Attestation - Physician/ RADHA Attestation Patient care was provided by Advanced Practice Provider:: No The physician spent face to face time with patient:: Yes Advanced Practice Provider documentation review:: Supervising physician onsite and consulted in the evaluation and care of this patient. The physician did have a face to face encounter with the patient. This chart was documented by the indicated scribe, (Kiara Christian Scribe) and accurately reflects the services I performed and decisions made by me, Jayden Martínez MD, as attested by the provider's signature.
[2019-11-12] MEDS ORDERED: ZOFRAN PO PRN (14:40)
[2019-11-12] MEDS ORDERED: TYLENOL PO PRN (14:40)
[2019-11-12] MEDS ORDERED: ZOFRAN IV PRN (18:30)
[2019-11-12] MEDS: NS 1,000 ML IV SCH (18:50)
[2019-11-12] MEDS: ZOSYN 3.375 GM in NS 50 ML IV SCH ×2 (18:50→23:30)
[2019-11-12] MEDS: MORPHINE IV PRN (18:56)
--- NOTE | 2019-11-12 19:23 | HISTORY AND PHYSICAL ---
PRIMARY CARE PHYSICIAN: Dr. Ramon Rosenberg. CHIEF COMPLAINT: Fall. HISTORY OF PRESENT ILLNESS: An 89-year-old white male, with a complicated past medical history, presents for evaluation of above-mentioned symptoms. Pertinent history of present illness began this morning at approximately 9:30. Patient states that he was walking in his home and developed acute onset weakness. The patient attempted to sit, but was unable to reach his destination and suffered a fall to the ground. Upon doing so, he struck his left buttock and also struck his head against the door. He denies having a syncopal episode. Because of this fall, EMS was contacted. The patient was brought to the emergency department for further evaluation and management. Upon arrival, full evaluation was pursued. The patient was found to have an elevated white blood cell count as well as a grossly abnormal urinalysis. The patient will be admitted to the hospital for full evaluation and management of profound weakness in the setting of a urinary tract infection/possible pyelonephritis. Of note, over the course of the last several days, patient has experienced considerable fatigue with associated intermittent nausea and vomiting. He has noted malodorous urine. The patient has an ileal conduit, thus he denied any urinary symptoms associated, including dysuria and urinary frequency. He has noted some hematuria, but no pyuria. He denies any lower GI complaints at the present time, including diarrhea or constipation. PAST MEDICAL HISTORY: 1. History of bladder cancer with cystectomy and ileal conduit. 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 2. Coronary artery disease, status post coronary artery bypass grafting in 1978 and stenting in 2004. 3. Abdominal aortic aneurysm repair in 1990. Unfortunately, he has developed a recurrence. He is followed routinely by Dr. Rudolph at [facility]. 4. Hyperlipidemia. 5. Hypertension. 6. Osteoarthritis. 7. History of lumbar laminectomy with associated chronic low back pain. 8. Cervical spine pain, status post cervical spine surgery. 9. History of multiple left psoas abscesses, requiring IV antibiotic intervention. 10. Multiple myeloma, diagnosed in 1996, followed routinely by Dr. Moreno. CURRENT MEDICATIONS: 1. Famotidine 20 mg twice daily. 2. Ranexa 500 mg twice daily. 3. Atorvastatin 40 mg at bedtime. 4. Aspirin 81 mg daily. 5. Multiple other medications are unknown. Patient's family will bring a list of his medications tomorrow. ALLERGIES: Patient states he is allergic to Demerol. SOCIAL HISTORY: Patient is retired from [employer]. He was in the [employer] prior to his service at [employer]. He has a 40 pack-year history of smoking, but stopped in 1973. He denies alcohol or illicit drug use. He lives independently. FAMILY HISTORY: Patient's mother passed at age 67, secondary to complications of multiple myeloma. Patient's father passed at age 44, secondary to an unknown cardiac abnormality. REVIEW OF SYSTEMS: A 12 point review of systems was performed. Pertinent positives and negatives are noted in History of Present Illness. PHYSICAL EXAMINATION: VITAL SIGNS: Temperature 97.4 degrees, heart rate 89, respirations 16, blood pressure is 156/88. GENERAL: Elderly. No acute distress. HEENT: Normocephalic, atraumatic. Pupils equal, round, and reactive to light. Extraocular muscles intact. Sclerae anicteric. [place] conjunctivae. Oral and nasopharynx clear without exudate. NECK: Supple. No lymphadenopathy. No thyromegaly. No bruits auscultated. CARDIOVASCULAR: Regular rate and rhythm. No significant murmurs, rubs, or gallops. PULMONARY: Clear to auscultation bilaterally. ABDOMEN: Soft, nontender, and nondistended. Positive bowel sounds. EXTREMITIES: Moves all extremities well. No significant clubbing, cyanosis, or edema. NEUROLOGIC: Cranial nerves 2 through 12 grossly intact. Motor and sensory grossly intact. PSYCHOLOGIC: Examination is appropriate. LABORATORY DATA: White blood cell count 11.35, hemoglobin 11.9, hematocrit 37.5, platelet count 184,000. PT 14.5, INR is 1.11, PTT is 26.3. Sodium 139, potassium 4.4, chloride 99, bicarb 21, BUN 65, creatinine 2.4, glucose 120, calcium 9.8, magnesium 1.6. Total bilirubin 0.46. Total protein 7.3. Albumin 4.1, alkaline phosphatase 149, AST 37, ALT 30. Troponin 0.018. Plasma lactate 2.3. TSH 1.77. Urinalysis reveals too many to count white blood cells, too many to count red blood cells. Chest x-ray revealed a negative examination. Pelvic CT reveals no acute injury. Abdominal aorta ultrasound reveals 6.4 x 7.8 cm aneurysm at the mid abdominal aorta. This measured 6.2 x 6.7 on prior examination in December 2016. A 3.5 x 3.6 cm aneurysm at the distal abdominal aorta which is essentially stable compared to prior. Maxillofacial CT revealed no evidence of fracture. CT scan of the head and cervical spine revealed no visible acute intracranial abnormality. No evidence of intracranial injury. Anterior surgical fusion at C4, C5, C6. Partially calcified posterior disk protrusion which produces moderate spinal stenosis at C3-C4. ASSESSMENT AND PLAN: An 89-year-old white male, with a very complicated past medical history, presents after suffering a fall with closed head injury. Full evaluation has revealed a significant urinary tract infection and acute on chronic renal dysfunction. Patient will be admitted to the hospital for full evaluation and management of each of these conditions. 1. Admit to General Medicine. 2. Hemorrhagic cystitis. In the setting of an ileal conduit and a chronic fistulous tract with stool leak, I do feel aggressive intervention is warranted. We will place the patient on broad-spectrum coverage in the form of Zosyn. We will send blood and urine for culture. We will place the patient on a cautious, but aggressive hydration. 3. Acute on chronic kidney disease. This likely is a consequence of dehydration. We will start patient on cautious, but aggressive hydration. We will recheck labs in the a.m. 4. Nausea and vomiting. We will treat patient with as needed Zofran therapy while hospitalized. This likely is a consequence of his urinary tract infection/pyelonephritis. 5. Abdominal aortic aneurysm. Patient has a very large abdominal aortic aneurysm. This has increased in size since 2017. I have discussed this in detail with patient. He currently is being followed at [facility] by Dr. Rudolph. He understands that should this rupture, this likely will be life threatening. He is not interested in surgical intervention. We will remain aware. 6. Hyperlipidemia. We will continue patient on atorvastatin therapy. 7. Hypertension. It does not appear the patient is being treated with antihypertensive agents, although he is unsure as to his home medications. Blood pressure may be elevated today simply from a reactive state. We will follow the patient with serial blood pressure evaluations. We will defer further management to Dr. Rosenberg. 8. Low back pain. Patient has chronic low back pain. He has experienced an exacerbation with this fall. We will treat patient with as needed morphine while hospitalized, and we will defer further management as an outpatient to Dr. Rosenberg. 9. Coronary artery disease. We will remain aware. 10. Fluid, electrolytes, nutrition. We will monitor electrolytes. Normal saline at 50 mL an hour. Cardiac prudent diet. 11. Prophylaxis. The patient is not a candidate for Lovenox secondary to his hemorrhagic cystitis. We will place patient on sequential compression devices. cc: MD Ramon Chicas MD
[2019-11-12] MEDS: RANEXA PO SCH (20:41)
[2019-11-12] MEDS: PEPCID PO SCH (20:41)
[2019-11-12] MEDS: LIPITOR PO SCH (20:41)
[2019-11-13 05:46] LABS: BASO# 0.01 X1000 (0.0-0.2); BASO% 0.1 % (0.0-0.8); EOS# 0.17 X1000 (0.0-0.7); EOS% 2.4 % (0.0-10.0); HEMATOCRIT 28.1 % (42.0-52.0); HEMOGLOBIN 8.7 g/dL (14.0-18.0); LYMPH# 1.19 X1000 (1.2-3.4); MONO# 0.95 X1000 (0.11-0.59); MONO% 13.6 % (1.7-9.3); NEUT# 4.68 X1000 (1.4-6.5); NEUT% 66.9 % (42.2-75.2); PLT 136 X1000 (130-400); RBC 2.81 XMIL (4.7-6.1); RDW 13.5 % (11.5-14.5)
[2019-11-13 06:01] LABS: ALB/GLOB RATIO 1.5; ALBUMIN 3.2 g/dL (3.5-5.0); CALCIUM 8.5 mg/dL (8.8-10.2); CREATININE 2.1 mg/dL (0.7-1.2); TOTAL BILIRUBIN 0.27 mg/dL (0.20-1.00); TOTAL PROTEIN 5.4 g/dL (6.3-8.3)
[2019-11-13] MEDS: PEPCID PO SCH ×2 (08:35→20:33)
[2019-11-13] MEDS: RANEXA PO SCH ×2 (08:35→20:33)
--- NOTE | 2019-11-13 11:01 | PROGRESS NOTE ---
DATE: 11/13/2019 SUBJECTIVE: The patient states that he is feeling much better. He is able to get up in the chair, but requests a walker so that he can get around with assistance back and forth to the bathroom. He states that this hospitalization was "exactly like the last one when I fell and broke my hip." He states that he simply had a sudden onset of weakness and fell. Records from admission are reviewed. VITAL SIGNS: 98.3, 84, 18, 126/63, 96% saturated on room air. PHYSICAL EXAM: Lungs: Clear to auscultation bilaterally. Cardiovascular: Regular with a 2-3/6 systolic ejection murmur consistent with aortic disease. Abdomen: Bowel sounds are present. He is nontender, nondistended. Neuropsychiatric: The patient is alert, oriented, conversive and appropriate. LABORATORY: White cell count is 7.0, hemoglobin is 8.7, hematocrit 28.1. ASSESSMENT AND PLAN: 1. The patient had hemorrhagic cystitis and is being treated with broad-spectrum antibiotics. In the past, I have found it difficult to adjust medications with chronic stool leakage into his ileal conduit. The urine is almost always contaminated and polymicrobial. He seems to be doing well on the present antibiotic, and we will keep that going for the time being. Urine and blood cultures are pending. 2. The patient has chronic kidney disease. He is being cautiously hydrated in appropriate fashion, and his numbers look good. 3. The patient's nausea and vomiting has abated. 4. Abdominal aortic aneurysm. We are aware of this. He is aware of the gravity of that situation. 5. Patient's hypertension is well controlled. 6. We will get the patient a walker. cc: Ramon Rosenberg MD
[2019-11-13] MEDS: ZOSYN 3.375 GM in NS 50 ML IV SCH ×3 (11:46→19:50)
[2019-11-13] MEDS: MORPHINE IV PRN (14:20)
[2019-11-13] MEDS: NS 1,000 ML IV SCH (15:40)
[2019-11-13] MEDS: LIPITOR PO SCH (20:33)
[2019-11-14] MEDS: ZOSYN 3.375 GM in NS 50 ML IV SCH ×2 (00:25→05:11)
[2019-11-14] MEDS: PEPCID PO SCH ×2 (09:35→21:49)
[2019-11-14] MEDS: RANEXA PO SCH ×2 (09:35→21:49)
[2019-11-14] MEDS: HEMOCYTE PLUS CAPSULE PO SCH (09:39)
[2019-11-14] MEDS: KEFLEX PO SCH ×2 (09:39→21:48)
[2019-11-14] MEDS: QUININE SULFATE PO SCH (09:39)
[2019-11-14] MEDS: NS 1,000 ML IV SCH (09:40)
--- NOTE | 2019-11-14 13:12 | PROGRESS NOTE ---
DATE: 11/14/2019 SUBJECTIVE: The patient complains about the quality of food. He does not follow a healthy heart diet home. He states he otherwise feels well. He has been able to get up and move about with a walker borrowed from the hospital. He is sitting in the chair at the time of my interview and examination. We had a long discussion about his DO NOT RESUSCITATE order and what he wanted or expected out of treatment. OBJECTIVE: Vital Signs: Temperature 98.1, pulse 80, respirations 18, blood pressure 126/55, saturating 100% on room. Lungs: Clear. Cardiovascular: Regular with a 3/6 systolic ejection murmur. Extremities: No peripheral edema. LABORATORY DATA: None today. ASSESSMENT AND PLAN: 1. Hemorrhagic cystitis has been treated with antibiotics. Urine culture result revealed Klebsiella pneumoniae with no significant resistance pattern. I discontinued his intravenous antibiotics, and started him on Keflex, which should be adequate. We will monitor him throughout the next 24 hours, and if that goes well, we should be able to discharge based on that. 2. Chronic kidney disease. We will recheck laboratory parameters tomorrow. 3. The patient is noted to be anemic more so than he has been in the past. We will again monitor this tomorrow, and transfuse as necessary. Hopefully that will not be an issue which will delay his discharge. 4. Abdominal aortic aneurysm. Aware. 5. Hypertension is well controlled. 6. The patient's mobility seems to be at baseline. 7. I will look at parameters on DO NOT RESUSCITATE order to see if I can customized this to the patient's wishes. cc: Ramon Rosenberg MD
[2019-11-14] MEDS: LIPITOR PO SCH (21:49)
[2019-11-14] MEDS: REMERON PO SCH (21:49)
[2019-11-15 05:37] LABS: BASO# 0.01 X1000 (0.0-0.2); BASO% 0.2 % (0.0-0.8); EOS# 0.25 X1000 (0.0-0.7); EOS% 4.1 % (0.0-10.0); HEMATOCRIT 23.5 % (42.0-52.0); HEMOGLOBIN 7.2 g/dL (14.0-18.0); IMM GRAN# 0.03 X1000 (0.0-0.04); IMM GRAN% 0.5 % (0.0-0.5); LYMPH# 1.04 X1000 (1.2-3.4); LYMPH% 17.1 % (20.5-51.1); MCH 30.8 PG (27-31); MCHC 30.6 g/dL (33-37); MCV 100.4 FL (81-99); MONO% 13.2 % (1.7-9.3); MPV 9.6 FL (7.4-10.4); NEUT# 3.94 X1000 (1.4-6.5); NEUT% 64.9 % (42.2-75.2); PLT 145 X1000 (130-400); RBC 2.34 XMIL (4.7-6.1); RDW 13.6 % (11.5-14.5); WBC 6.07 X1000 (4.8-10.8)
[2019-11-15 05:57] LABS: ALB/GLOB RATIO 1.2; ALBUMIN 2.9 g/dL (3.5-5.0); CALCIUM 8.3 mg/dL (8.8-10.2); CREATININE 1.9 mg/dL (0.7-1.2); POTASSIUM 3.6 mmol/L (3.5-5.1); TOTAL BILIRUBIN 0.3 mg/dL (0.20-1.00); TOTAL PROTEIN 5.3 g/dL (6.3-8.3)
[2019-11-15 07:39] LABS: RETIC% 3.12 % (0.8-2.1); RETIC-HE 30.3 PG (28.2-36.6)
[2019-11-15] MEDS: PEPCID PO SCH ×2 (08:27→21:51)
[2019-11-15] MEDS: QUININE SULFATE PO SCH (08:27)
[2019-11-15] MEDS: KEFLEX PO SCH ×2 (08:27→21:51)
[2019-11-15] MEDS: RANEXA PO SCH ×2 (08:27→21:51)
[2019-11-15] MEDS: HEMOCYTE PLUS CAPSULE PO SCH (08:27)
[2019-11-15] MEDS ORDERED: NS 250 ML ONE (08:39)
[2019-11-15 09:24] LABS: IRON SATURATION 16 %; TIBC 178 ug/dL; TOTAL IRON 29 ug/dL (53-167); UNBOUND IRON 149 ug/dL (112-346)
[2019-11-15] MEDS: IMODIUM PO PRN ×2 (17:09→21:51)
--- NOTE | 2019-11-15 19:06 | PROGRESS NOTE ---
DATE: 11/15/2019 SUBJECTIVE: The patient has no complaints. I discussed with him that I had planned to discharge him home today, but his hemoglobin has continued to fall. He will require transfusion then hopefully we can get him out tomorrow. He was in agreement with that plan. He already sees Dr. Moreno. PHYSICAL EXAMINATION: Vital Signs: 97.8, 72, 20, 148/56, 100% saturated on room air. PHYSICAL EXAM: General: Patient is alert, oriented, conversive and appropriate. Lungs: Clear to auscultation. Cardiovascular: Irregular with a 3/6 systolic ejection murmur. Extremities: Show no peripheral edema. LABORATORY: White cell count 6.0, hemoglobin 7.2, hematocrit 23.5, potassium 3.6, carbon dioxide 21, BUN 40, creatinine 1.9. ASSESSMENT AND PLAN: 1. Hemorrhagic cystitis which grew Klebsiella pneumoniae in the culture. This has been treated with intravenous antibiotics. We switched him over to Keflex yesterday in accordance with culture results. 2. Chronic kidney disease. Aware. At baseline. 3. Anemia has worsened. We are going to transfuse him 2 units of packed red cells today. 4. Abdominal aortic aneurysm. Aware. 5. Hypertension stable. 6. The patient's mobility seems to be at baseline. 7. Do not resuscitate level 2 with medications only. Applied. 8. Later in the afternoon, after doing the work for this note, I was called about the patient having some diarrhea. We have given him some Imodium. We will check on this again in the morning. cc: Ramon Rosenberg MD
[2019-11-15] MEDS: LIPITOR PO SCH (21:51)
[2019-11-15] MEDS: REMERON PO SCH (21:51)
[2019-11-16 07:45] VITALS: BP 139/63
[2019-11-16] MEDS: PEPCID PO SCH (09:35)
[2019-11-16] MEDS: KEFLEX PO SCH (09:35)
[2019-11-16] MEDS: RANEXA PO SCH (09:36)
[2019-11-16] MEDS: QUININE SULFATE PO SCH (09:36)
[2019-11-16] MEDS: HEMOCYTE PLUS CAPSULE PO SCH (09:36)
--- NOTE | 2019-11-16 11:28 | DISCHARGE SUMMARY ---
ADMISSION DATE: 11/12/2019 DISCHARGE DATE: 11/16/2019 DISCHARGE DIAGNOSES: 1. Acute hemorrhagic cystitis. 2. Ileal conduit pouchitis. 3. Fall as a cause of accidental injury. 4. Weakness. 5. Acute worsening of chronic anemia. 6. Abdominal aortic aneurysm. 7. Aortic stenosis. 8. Chronic kidney disease stage 3. 9. Skin tear of left elbow. 10. Laceration of lip. HOSPITAL COURSE: This 89-year-old white male fell at home with profound weakness. He was completely washed out. When he was brought to the emergency room, he was found to have infection in his ileal conduit. He has a chronic stool leak into this ileal conduit and has frequent infections. As one would suspect, the urine taken of the area is almost always contaminated, but only occasionally does it flare up to the point of causing acute infection. The patient was admitted and hydrated aggressively which helped in recover some of his strength. He was started on empiric antibiotics, and culture results eventually grew Klebsiella pneumoniae which had a normal sensitivity pattern, and a subgroup of Pseudomonas aeruginosa although it was not greater than 100,000 colony-forming units per high-powered field so the patient was switched from Zosyn eventually to Keflex. Then at discharge, it was reconsidered and we put him on cefdinir for an additional 5 days. During the hospitalization, it was noted that his usual anemia with a hemoglobin around 10 dwindled down to around 7.1 hemoglobin, and he was transfused 2 units. He is followed by Dr. Moreno for chronic anemia as well as Dr. York for stage 3 kidney. The patient was discharged home in good condition after transfusion. He has a rapid followup with myself and/or Dr. Moreno upcoming. He also has an appointment to begin radiation treatment on a skin cancer on his left druze shortly. cc: Ramon Rosenberg MD
== END 2019-11-16 11:47 | disposition home health service (06) ==
LOC: SUPCPDRO → ED 11:23 → 1N 11:23 → OBSVTOIN 15:41
PROVIDERS: ADMIT Internal Medicine; ATTEND Internal Medicine

== ENCOUNTER 2019-12-24 06:47 | Inpatient (IN) ==
[2019-12-24] MEDS ORDERED: NS 1,000 ML IV ONE ×2 (07:50→10:02)
--- NOTE | 2019-12-24 07:52 | EKG Report ---
Test Performed on : 12/24/2019 07:29:47 AM Test Reason : WEAKNESS Blood Pressure : / mmHG Vent. Rate : 086 BPM Atrial Rate : 086 BPM P-R Int : 144 ms QRS Dur : 090 ms QT Int : 384 ms P-R-T Axes : 050 051 061 degrees QTc Int : 459 ms Normal sinus rhythm. Normal ECG When compared with ECG of 23-DEC-2019 16:43, (Unconfirmed) No significant change was found Unconfirmed Result
--- NOTE | 2019-12-24 07:57 | PROVIDER DOCUMENTATION ---
HPI-General Adult - General Chief Complaint: Weakness Stated Complaint: WEAKNESS Time Seen by Provider: 12/24/19 07:27 Source: patient Allergies/Adverse Reactions: Patient Allergies Allergy/AdvReac Type Severity Reaction Status Date / Time meperidine HCl * Allergy HIVES Verified 12/24/19 08:43 [From Demerol] Home Medications: Home Medication List Medication Instructions Recorded Confirmed Last Taken Type Aspirin 81 mg PO DAILY 07/29/16 12/24/19 12/23/19 08:00 History Famotidine [Pepcid] 20 mg PO BID tablet 12/01/17 12/24/19 01/07/19 20:00 Rx Mirtazapine 15 mg PO HS 11/12/19 12/24/19 12/22/19 23:00 History ATORVAstatin [Lipitor] 40 mg PO QHS tab 11/16/19 12/24/19 12/22/19 23:00 Rx Acetaminophen [Tylenol] 650 mg PO Q6H PRN PRN tab 11/16/19 12/24/19 12/23/19 08:00 Rx Metoprolol [Lopressor] 12.5 mg PO BID #30 tab 12/30/19 Unknown Rx Multivitamins/Minerals [Centrum 1 ea PO DAILY tab 12/30/19 Unknown Rx Silver] Pantoprazole [Protonix] 40 mg PO BID #60 tab 12/30/19 Unknown Rx Ranolazine E.r. [Ranexa] 1,000 mg PO BID tab 12/30/19 Unknown Rx - History of Present Illness -Gen Adult Nature of Presenting Problems: EVALUATED HERE LATE YESTERDAY, SEE NOTE OF MYSELF AND DR BRICEÑO. RUGH NIGHT. SLEPT IN RECLINERE. SPELL OF SOB AND TOO WEAK TO MOVE LAST NIGHT . UNABLE TO ARISE THIS MORNING. DENIES CUGH, SORETHROAT,VOMITING, CURRENT BM HAS URINE OSTOMY BAG LONGSTANDING. NO FEVER OR DIAPHORESIS. Review of Systems - Adult - REVIEW OF SYSTEMS - ADULT Constitutional: reports: no symptoms reported, fatique. denies: chills, fever, night sweats Eyes: reports: no symptoms reported Ears, Nose, Mouth & Throat: reports: no symptoms reported Cardiovascular: reports: no symptoms reported, edema (MILD ANKLES). denies: chest pain Respiratory: reports: no symptoms reported. denies: cough Gastrointestinal: reports: no symptoms reported. denies: abdominal pain Genitourinary: reports: no symptoms reported Musculoskeletal: reports: no symptoms reported Integumentary: reports: no symptoms reported Neurological: reports: no symptoms reported Psychiatric: reports: no symptoms reported Endocrine: reports: no symptoms reported Hematologic/Lymphatic: reports: no symptoms reported Allergic/Immunologic: reports: no symptoms reported All Other Systems: Reviewed and Negative Past History - Adult - PAST MEDICAL HISTORY-ADULT Review of Records: reports: Old Records Reviewed, Nursing Assessment Review, Medications Reviewed, Social history reviewed & non-contributory. Major Childhood Illnesses: reports: denies history Cardiovascular: reports: CAD, HTN, hyperlipidemia, [place] Respiratory: reports: denies history Gastrointestinal: reports: GERD Obstetrical/Gynecological: reports: denies history Genitourinary: reports: cancer (bladder ), kidney disease, kidney stones Musculoskeletal: reports: denies history Neurological: reports: denies history Psychiatric: reports: denies history Endocrine/Immune: reports: denies history Other Conditions: reports: other cancer (multiple myleoma , bone ca) - PRIOR SURGERIES/PROCEDURES Surgical/Procedure History: reports: CABG (x2), indwelling device, other (removal of bladder, cystosostomy, neck and back surgery, Aorta repair) - PRIOR HOSPITALIZATIONS Prior Hospitalizations: reports: for other non-related - IMMUNIZATION STATUS Childhood Immunizations: See Nurse Assessment Flu Vaccine: See Nurse Assessment - FAMILY HISTORY Family History: reviewed, not pertinent Physical Exam-General - PHYSICAL EXAM-ADULT Initial Vital Signs Reviewed: Yes - CONSTITUTIONAL General Appearance: alert - EYES Eyes: PERRL/EOMI - HEAD, EARS, NOSE, MOUTH & THROAT HENMT: normocephalic/atraumatic, moist mucous membranes - NECK Neck: full range of motion, supple - RESPIRATORY Respiratory: lungs clear, no respiratory distress - CARDIOVASCULAR Cardiovascular: regular rate, rhythm - GASTROINTESTINAL (ABDOMEN) Abdominal Exam: normal bowel sounds, non tender, soft, other (CLEAN AND NOT RED ABOUT OSTOMY BAG.) - MUSCULOSKELETAL Extremity: normal range of motion, non-tender, swelling ( LESS THAN 1/4 EDEMA ANKLES) - SKIN Integumentary: warm/dry - NEUROLOGIC Neurologic: gis software engineer II-XII nml as tested, grossly normal, no motor/sensory deficits, motor weakness (GENERALIZED BUT NO FOCAL WEAKNESS.) Progress - PLAN OF CARE/RESULTS Progress/Plan/Lab Results: Vital Signs - 8 hr 12/24/19 07:00 Temperature 97.4 F L Pulse Rate 89 Respiratory Rate 18 Blood Pressure 102/60 O2 Sat by Pulse Oximetry 100 Laboratory Results - last 24 hr 12/24/19 07:31 POC Glucose 120 H Orders Category Date Time Status Cardiac Monitoring DIRECTED Care 12/24/19 07:49 Ordered Saline Loc NOW Care 12/24/19 07:49 Ordered CHEST-PORTABLE [RAD] Stat Exams 12/24/19 07:50 Ordered ACETONE SERUM [CHEM] Stat Lab 12/24/19 07:49 Ordered BLOOD CULTURE [BLDCUL] Stat Lab 12/24/19 07:49 Ordered CBC WITH ELECTRONIC DIFF [HEME] Stat Lab 12/24/19 07:49 Uncollected COMPREHENSIVE METABOLIC PANEL [CHEM] Stat Lab 12/24/19 07:49 Uncollected INFLUENZA SCREEN A/B Stat Lab 12/24/19 07:50 Uncollected LACTATE, PLASMA [CHEM] Stat Lab 12/24/19 07:50 Uncollected MAGNESIUM [CHEM] Stat Lab 12/24/19 07:50 Uncollected TROPONIN T HIGH SENSITIVITY Stat Lab 12/24/19 07:50 Uncollected URINALYSIS W/POSS RFLX CULT [URINALYSIS] Stat Lab 12/24/19 07:50 Uncollected URINE CULTURE [RM] Stat Lab 12/24/19 07:50 Uncollected Ns 1000 ml IV Bolus X1 Med 12/24/19 07:50 Ordered 0.9% Sodium Chloride Inj [Ns] 1,000 ml IV 999 mls/hr EKG [EKG] Stat Ther 12/24/19 07:33 Ordered Result Diagrams: 12/30/19 07:20 12/30/19 07:20 - EKG 1 Time of EKG reading by physician:: 07:35 EKG Read and Signed by:: Lars Owens EKG Interpretation (*Must complete 3 of following elements*): Normal Rate: 86 Rhythm: NL [place]: normal QRS: normal [place] Interval: normal ST Wave: normal - CONSULTS/PCP/HOSPITALIST Notification #1 *Consult/PCP/Hospitalist*: DR AVENDANO Time Discussed: 07:58 (CALLED, WILL SEE PT IN ER) Departure - Departure Date of Disposition Decision: 12/24/19 Time of Disposition Decision: 07:58 DIAGNOSIS: Weak Disposition: ADMITTED INPATIENT 09 Certified Medical Emergency: Emergent Condition: Stable - Critical Care Note This patient required my direct & personal management of CC.: No Attestation - Physician/ RADHA Attestation The physician spent face to face time with patient:: Yes Advanced Practice Provider documentation review:: Supervising physician onsite and consulted in the evaluation and care of this patient. The physician did have a face to face encounter with the patient.
--- NOTE | 2019-12-24 08:18 | Diag Imaging Result Doc PS360 ---
CHEST-PORTABLE - 12/24/2019 INDICATION: WEAK, COMPARISON: 12/23/2019 FINDINGS: The lungs are normally expanded and clear. Heart size and mediastinal contours are normal. No pneumothorax or pleural effusion. There are stable sternotomy wires. IMPRESSION: Negative exam. Electronically signed by Deni Sales 12/24/2019 8:15 AM
[2019-12-24 09:31] LABS: URINE SOURCE CATH
[2019-12-24 09:36] LABS: BILIRUBIN URINE NEGATIVE (NEGATIVE); BLOOD URINE LARGE (NEGATIVE); COLOR YELLOW; GLUCOSE URINE NEGATIVE (NEGATIVE); KETONE URINE NEGATIVE (NEGATIVE); LEUKOCYTES URINE LARGE (NEGATIVE); NITRITE URINE NEGATIVE (NEGATIVE); PROTEIN URINE 30 mg/dL (NEGATIVE); SP GRAVITY URINE 1.015; TURBIDITY URINE HAZY (CLEAR); UROBILINOGEN URINE NORMAL (NORMAL)
[2019-12-24 09:39] LABS: UR EPITHELIAL CELLS <10 /HPF (<10); URINE BACTERIA 2+ /HPF; URINE RBC TNTC /HPF (<10); URINE WBC TNTC /HPF (<10)
[2019-12-24] MEDS ORDERED: TYLENOL PO PRN (10:02)
[2019-12-24] MEDS ORDERED: LEVAQUIN 250 MG/D5W 250 MG/50 ML IVPB IV SCH (10:15)
[2019-12-24] MEDS ORDERED: LOVENOX SUBQ SCH (10:49)
[2019-12-24] MEDS: ZOFRAN IV PRN (12:38)
[2019-12-24] MEDS: ZOSYN 2.25 GM in NS 50 ML IV SCH ×2 (15:45→21:23)
--- NOTE | 2019-12-24 19:42 | HISTORY AND PHYSICAL ---
CHIEF COMPLAINT: Weakness. HISTORY OF PRESENT ILLNESS: 89-year-old white male was seen at the [facility] yesterday but he had low blood pressure and was told to call my office. This was late in the afternoon so I suggested that he go to the emergency room. I saw him briefly there. He was evaluated and given 2 L of fluid. 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 He has a constant stool leak into his ileal conduit and this frequently appears infected. Only rarely does this flare up to the point where there is an acute problem. He was given a single dose of Septra DS and sent home with a prescription after getting IV fluids. It is noted that his baseline creatinine when well-hydrated is approximately 1.6 and it was 2.3 in the emergency room. I am not sure why Septra was the appropriate choice, although previous cultures would indicate that the organisms he has grown in the past would be sensitive to that. The patient went home and last night while sitting on his couch felt a sudden wave of weakness. He stated that he felt short of breath, although he did not have chest pain. He became increasingly more anxious and basically slept sitting on the couch all night. He states "I thought I was going to ." I could never get him to admit that he had marya chest pain or palpitations. He stated that he is exceedingly weak. Every time he tried to get to his feet to go to the restroom or to change his clothes he became even weaker. He stated "I cannot get my legs to move it." He called the ambulance this morning and showed up in the emergency room unannounced. PAST MEDICAL HISTORY: 1. Bladder cancer with cystectomy and ileal conduit. Conduit has chronic stool leak. 2. Atherosclerosis of [place] coronary vessels. Status post CABG in 1978. He had stents in 2004. He is on antianginal medicine. 3. The patient has a large abdominal aortic aneurysm despite repair in 1990. Although he has been investigated for operative correction of this, they would have to cross clamp his aorta and because of his chronic renal insufficiency, has been told that he would likely end up on dialysis. He has declined surgical treatment and is aware that the large size of this AAA is dangerous to him. 4. Hypertension. At present, the patient really takes no antihypertensive medications but has been hypertensive in the past. More often than not, he is dehydrated and hypotensive upon presentation. 5. Hyperlipidemia. 6. 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 He is status post laminectomy. 7. The patient has had a cervical laminectomy as well. I am not sure if he has had a fusion. 8. History of left psoas abscesses requiring IV antibiotics and an extended course of Levaquin to treat the infection. 9. The patient has a history of multiple myeloma diagnosed in 1996. He is followed by Dr. Moreno. 10. The patient is currently undergoing x-ray therapy per Dr. 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 ALLERGIES: Demerol. SOCIAL HISTORY: The patient is retired from the from [employer], [place]. He has a history in the [employer]. He had a 40 pack year history of smoking and quit in 1973. He does not use alcohol. He lives independently. Periodically his son will come and stay with him for extended periods of time. FAMILY HISTORY: Noncontributory to history of present illness. REVIEW OF SYSTEMS: The patient denies any fever or chills. He has been weak in general for a 7 to 10 day period. When he went to his radiation treatment last week he was also hypotensive and weak but they never recommended that he follow up with me or go to the emergency room. This week he was again hypotensive and referred to my care. I do not believe he received radiation treatments on either occasion. The patient denies any cough, wheezing, shortness of breath. He has had no palpitations. He felt a certain chest tightness last night when he was short of breath but not marya chest pain. His extremities have not been swelling. He does not relate symptoms consistent with orthopnea or PND. The patient has had no nausea or vomiting. He has been eating and drinking as he feels is normal for him. He is routinely behind on fluids. He has no other gastrointestinal disturbance. He has good output from his ileal conduit. It always has the appearance of infection but as stated earlier, only rarely rises to the level of acute infection. He has grown multiple Klebsiella species from this over time. He has not had any issues with his left psoas abscess for quite some time. LABORATORY: From yesterday, the patient's sodium was 143, CO2 21, BUN 39, creatinine 2.3 (baseline 1.6). Liver functions were grossly normal. White cell count 6.75, hemoglobin 9.5, hematocrit 32.1, (baseline is 8.5 to 10). ASSESSMENT AND PLAN: 1. The patient's weakness and inability to use his legs could be simple manifestation of infection. He has manifested this way on several times in the past. We will begin empiric therapy based on his last completed cultures and will adjust as the new cultures dictate. Alternatively a severe reaction to the Septra which was given to him yesterday may be at the very least contributing if not causative to his acute downturn after receiving fluids. 1. The patient has chronic kidney disease with baseline creatinine of 1.6. Clearly this is worse with a creatinine of 2.3 likely due to hydration status. We will continue some IV fluids. 2. Abdominal aortic aneurysm. Aware. Hyperlipidemia. We will continue atorvastatin. 1. The patient has a history of hypertension but is currently not on any medications. We want to follow his blood pressure, make sure he is well hydrated. 2. The patient has chronic low back pain that seems to be doing well now. He has Tylenol if needed. 3. Coronary artery disease. Aware. 4. The patient will be started on graduated compression hose for deep venous thrombosis prophylaxis. His cystitis is again hemorrhagic and it would be inappropriate to use Lovenox. I have discussed resuscitation status with the patient many times wound. Given his age and multiple comorbidities, would make sense that he be a do not resuscitate. He has expressed a desire though to be salvaged at any cost. He has been fairly firm in that belief. Therefore he will remain as a full code. cc: Ramon Rosenberg MD
[2019-12-24] MEDS: RANEXA PO SCH (21:24)
[2019-12-24] MEDS: LIPITOR PO SCH (21:24)
[2019-12-24] MEDS: PEPCID PO SCH (21:24)
[2019-12-24] MEDS: REMERON PO SCH (21:24)
[2019-12-25] MEDS: ZOSYN 2.25 GM in NS 50 ML IV SCH ×4 (02:50→21:03)
[2019-12-25 06:47] LABS: CREATININE 2.1 mg/dL (0.7-1.2); POTASSIUM 5.4 mmol/L (3.5-5.1)
[2019-12-25] MEDS: ZOFRAN IV PRN ×3 (08:26→18:04)
[2019-12-25] MEDS: PEPCID PO SCH (08:26)
[2019-12-25] MEDS: RANEXA PO SCH ×2 (08:26→21:06)
[2019-12-25] MEDS ORDERED: ASPIRIN PO SCH (09:00)
[2019-12-25] MEDS ORDERED: NORCO-7.5 PO ONE (09:08)
--- NOTE | 2019-12-25 09:50 | EKG Report ---
Test Performed on : 12/25/2019 09:17:47 AM Test Reason : CHEST PAIN Blood Pressure : / mmHG Vent. Rate : 099 BPM Atrial Rate : 099 BPM P-R Int : 142 ms QRS Dur : 128 ms QT Int : 364 ms P-R-T Axes : 030 031 200 degrees QTc Int : 467 ms Normal sinus rhythm. Nonspecific intraventricular block T wave abnormality, consider lateral ischemia Abnormal ECG Confirmed by [place] Carroll MD ([id number]) on 12/27/2019 4:14:12 PM
[2019-12-25] MEDS: MORPHINE IV PRN ×3 (10:18→18:09)
[2019-12-25 11:00] LABS: BASO# 0.01 X1000 (0.0-0.2); BASO% 0.1 % (0.0-0.8); EOS# 0.05 X1000 (0.0-0.7); EOS% 0.5 % (0.0-10.0); HEMATOCRIT 15.7 % (42.0-52.0); HEMOGLOBIN 4.7 g/dL (14.0-18.0); LYMPH# 1.32 X1000 (1.2-3.4); LYMPH% 12.3 % (20.5-51.1); MCH 31.5 PG (27-31); MCHC 29.9 g/dL (33-37); MCV 105.4 FL (81-99); MONO# 1.01 X1000 (0.11-0.59); MONO% 9.4 % (1.7-9.3); MPV 10.1 FL (7.4-10.4); NEUT# 8.32 X1000 (1.4-6.5); NEUT% 77.7 % (42.2-75.2); PLT 211 X1000 (130-400); RBC 1.49 XMIL (4.7-6.1); WBC 10.71 X1000 (4.8-10.8)
[2019-12-25] MEDS: LOPRESSOR PO SCH ×2 (11:30→21:23)
[2019-12-25] MEDS: NITROGLYCERIN TOP SCH ×3 (11:31→18:24)
--- NOTE | 2019-12-25 11:50 | CARDIOLOGY CONSULTATION ---
DATE: 12/25/2019 HISTORY OF PRESENT ILLNESS: Mr. Tania Dean is an 89-year-old gentleman, who has multiple medical problems, was admitted by Dr. Rosenberg. He was noted to have low blood pressure as seen by radiation oncologist. Received IV fluids. Noted to have some infection of his ileal conduit. He has had constant stool leak into the ileal conduit in the past as well. He was given Septra and sent home, and he complained of having weakness and chest discomfort. Describes his chest pain as retrosternal radiating to the back and it is constant. There was no respiratory variation with the chest pain. His first electrocardiogram revealed nonspecific ST-T changes. Subsequent electrocardiogram revealed further ST depression in the anterior leads. He also complains of generalized weakness. There is no history of palpitations. There is no history of syncope. REVIEW OF SYSTEM: A 14-point review of systems was done. GI System: There is no history of hematemesis or melena. Other symptoms as above. System: No dysuria. Respiratory System: There is no history of cough, expectoration, hemoptysis. There is no history of fevers or chills. Endocrine System: Stable. PAST MEDICAL HISTORY: 1. Coronary artery disease, status post coronary artery bypass grafting in 1978. 2. Stent placement in 2004. 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 Prior to that, had testing about 2 years back with a stress test. Per patient was normal. Has not been having any anginal symptoms until now. 3. He has an abdominal aorta aneurysm. Despite repair in 1990, per patient he has AAA which measures 7 cm, and surgical treatment was declined as he is aware of the severe risks involved. 4. Hypertension. 5. Hyperlipidemia. 6. Chronic back pain with lumbar stenosis. 7. Chronic renal insufficiency. 8. Cervical laminectomy. 9. 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 10. Has history of multiple myeloma diagnosed in 1996. 11. Psoas abscess requiring IV antibiotics in the past. 12. Allergic to Demerol. 13. He has a 40 pack-year history of smoking, quit in 1973. PHYSICAL EXAMINATION: Vital Signs: Blood pressure 113/43. Heart: First and second heart sounds were heard. There was systolic murmur conducted to carotids. There was no S3 gallop. Respiratory System: Normal air entry. There were no crepitations or rhonchi. Abdomen: Soft. There was no tenderness noted. Central nervous system: Alert, oriented, was moving all 4 extremities. Extremities: Examination of his extremities revealed mild pedal edema. HEENT: Atraumatic, the patient was pale. LABORATORY EXAMINATION: WBC 10.7, hemoglobin 4.7, hematocrit 15.7, platelet count 211. Sodium 139, potassium 5.4. BUN 54, creatinine 2.1, calcium 8.0. ASSESSMENT AND PLAN: Mr. Tania Dean is an 89-year-old gentleman, who has known coronary artery disease, coronary artery bypass grafting, stent placement in the past. Bypass in 1998 and stent placement 2004. He is routinely followed by his carpenter wooden tank erecting in [place], who he saw 6 months back. He also has bladder cancer, chronic renal insufficiency, recurrent ileal conduit infection. He is admitted with chest discomfort. His electrocardiogram revealed worsening of ST depression. However, he has significant severe anemia which could well account for his symptoms. He is going to be transfused with 2 units packed red cells. There is no obvious source of bleeding, and CT scan of his abdomen and thorax are pending. From a cardiac standpoint, he is on aspirin. I have not made any changes. I have added beta- blockers to his medical regimen. I suspect his symptoms will improve once his anemia is corrected. We will get serial cardiac enzymes to rule out associated non Q-wave myocardial infarction. This is likely to be type 2 if positive. Regardless, I will put him on Lopressor 25 mg twice daily. He is also on Ranexa; we will continue with the same. I discussed with him in detail regarding further investigations, and he would like to be managed medically. Hyperlipidemia. Continue with atorvastatin. He is on antibiotics, piperacillin for his cystoscopy ileal conduit infection. Not made any other changes. We will get an echocardiogram to assess cardiac and valvular function. Thank you for the consult. We will follow hospital course. cc: MD Ramon Orellana MD [facility]
[2019-12-25 12:25] LABS: RETIC% 6.58 % (0.8-2.1); RETIC-HE 32.3 PG (28.2-36.6)
[2019-12-25 12:46] LABS: IRON SATURATION 62 %; TIBC 185 ug/dL; TOTAL IRON 114 ug/dL (53-167); UNBOUND IRON 71 ug/dL (112-346)
[2019-12-25 12:47] LABS: ALB/GLOB RATIO 1.1; ALBUMIN 2.6 g/dL (3.5-5.0); DIRECT BILIRUBIN 0.1 mg/dL (0.00-0.20); TOTAL BILIRUBIN 0.17 mg/dL (0.20-1.00); TOTAL PROTEIN 4.9 g/dL (6.3-8.3)
[2019-12-25] MEDS ORDERED: NS 500 ML ONE (13:55)
[2019-12-25 15:02] LABS: FERRITIN 601 ng/mL (30-400)
--- NOTE | 2019-12-25 15:19 | PROGRESS NOTE ---
DATE: 12/25/2019 SUBJECTIVE: The patient's chart was reviewed. In summary, patient was admitted yesterday with weakness and shortness of breath. Full evaluation revealed a urinary tract infection and associated acute on chronic kidney disease. The patient was placed on IV fluids and IV antibiotics. This morning, I was contacted in regards to chest discomfort. Per patient's report, he had chest discomfort throughout the night, but did not ask for assistance. An EKG was ordered. Upon my arrival, patient described significant chest discomfort, rated 10 out of 10. The chest pain radiated to his thoracic spine. He described this as sharp and constant. He has associated nausea, vomiting, and shortness of breath. He denies palpitations and radiating pain. EKG demonstrated ST and T-wave depression in the inferior lateral leads, new from yesterday. Cardiac enzymes have been ordered. Cardiology consultation has been pursued. Otherwise, patient remains very weak. He denies fevers or chills overnight. OBJECTIVE: T-max 98.5 degrees, heart rate 80 to 97, respirations 16 to 20, blood pressure 102 to 124/43 to 60.General: Elderly, no acute distress. Cardiovascular: Regular rate and rhythm. No significant murmurs, rubs, or gallops. Pulmonary: Clear to auscultation bilaterally. Abdomen: Soft, nontender, nondistended. Positive bowel sounds. Extremities: Moves all extremities well. No significant clubbing, cyanosis, or edema. Dermatologic: Evaluation reveals no evidence of rash. LABORATORY DATA: Sodium 139, potassium 5.4, chloride 110, bicarb 18, BUN 54, creatinine 2.1, glucose 115, calcium 8.0. CBC, CK, and troponin are pending. ASSESSMENT AND PLAN: 1. Urinary tract infection/ileal conduit infection-urine culture thus far has suggested gram- negative rods. We will continue Zosyn therapy. We will check blood cultures x2. At this point, he is afebrile. We will monitor for any evidence of progression of infection. 2. Unstable angina/shortness of breath/abnormal EKG with ST and T-wave depression in the inferior lateral leads-as above, the nursing staff contacted me in regards to chest discomfort this morning. EKG is concerning for ischemia. In the setting of a history of significant heart disease, I do feel aggressive intervention is most appropriate. Cardiology has been consulted. As needed IV morphine has been provided. He will be treated with oxygen per protocol. We will continue his Ranexa. At this point, he is not a candidate for nitroglycerin secondary to his low blood pressure. We will plan to transfer patient to the PVC unit for close cardiac observation. While cardiac etiology chest pain is highest on my differential, we will remain aware. Multiple additional etiologies are also to be considered. We will check a chest x-ray again today. We will remain aware that a pulmonary thromboembolism in the setting of known underlying cancer is also of concern. Unfortunately, he is not a good candidate for anticoagulation at this point. 3. Acute on chronic kidney disease-the patient was diagnosed upon admission. Creatinine today is 2.1. Potassium remains slightly elevated at 5.4. We will continue IV hydration. He does not demonstrate any significant changes per EKG consistent with hyperkalemia. We will hold off on Kayexalate for now, however upon repeating his potassium later this evening, we will determine whether this is appropriate. 4. Nausea and vomiting-this is concerning for cardiac in etiology. We will continue as-needed Zofran. We will treat chest pain as described above. 5. Hypertension - The patient's blood pressure is marginal at present time. We will hold off on any antihypertensive interventions. 6. Hyperlipidemia-we will continue patient on atorvastatin therapy as treated as an outpatient. 7. Abdominal aortic aneurysm-per report, this is significantly enlarged. He has declined surgical intervention to date. His abdomen is soft at this time, thus I do not feel this is contributing to his current chest discomfort. We will, however, remain aware in the setting of potential cardiac abnormalities and the potential need for anticoagulation. 8. Multiple myeloma-patient is currently being treated by Dr. Moreno. We will remain aware that bony disease could cause the chest and thoracic spine pain. We will also remain aware that this increases his risk for a pulmonary thromboembolism. We will schedule lower extremity Dopplers. 9. Disposition. At this point, patient would be better served in the PVCs/ICU setting. We will transfer patient for close cardiac observation. Further plans will be determined depending on stat laboratory draw and Cardiology consultation. cc: MD Ramon Chicas MD
[2019-12-25 16:08] LABS: CK INDEX 20.3 (0.0-2.5); CK-MB 45.65 ng/mL (0.0-5.0)
--- NOTE | 2019-12-25 16:08 | PROGRESS NOTE ---
DATE: 12/25/2019 ADDENDUM TO PROGRESS NOTE: LABORATORY DATA: Has been ordered. CBC returned with a hemoglobin of 4.7 and hematocrit of 15.7. Patient has no evidence of blood loss at present time. The patient has been typed and crossed. He will be provided 2 units of packed red blood cells. We will check an anemia panel as well as bilirubin, haptoglobin, and LDH. In the setting of a large abdominal aortic aneurysm, we will refer patient for CT scan of the abdomen, pelvis and chest. We will Hemoccult all stools. We will follow up cardiac enzymes as they are not available at present time. He will be transferred to the ICU. cc: MD Ramon Chicas MD
[2019-12-25 17:23] LABS: BASO# 0.02 X1000 (0.0-0.2); BASO% 0.2 % (0.0-0.8); EOS# 0.04 X1000 (0.0-0.7); EOS% 0.4 % (0.0-10.0); IMM GRAN# 0.13 X1000 (0.0-0.04); IMM GRAN% 1.4 % (0.0-0.5); LYMPH# 1.32 X1000 (1.2-3.4); LYMPH% 13.8 % (20.5-51.1); MCH 29.6 PG (27-31); MCHC 30.5 g/dL (33-37); MCV 96.9 FL (81-99); MONO# 0.99 X1000 (0.11-0.59); MONO% 10.3 % (1.7-9.3); MPV 9.4 FL (7.4-10.4); NEUT% 73.9 % (42.2-75.2); PLT 196 X1000 (130-400); RBC 1.96 XMIL (4.7-6.1); RDW 17.6 % (11.5-14.5)
[2019-12-25 17:24] LABS: HEMOGLOBIN 5.8 g/dL (14.0-18.0)
[2019-12-25 18:09] LABS: BANDS 1 % (0-1); LYMPHS 12 % (21-51); MONO 3 % (1-9); SEGS 83 % (42-75)
[2019-12-25 18:10] LABS: ANISOCYTOSIS 1+; LARGE PLATELETS OCCASIONAL
--- NOTE | 2019-12-25 18:38 | Diag Imaging Result Doc PS360 ---
EXAM: CT THORAX/ABD/PELVIS W/O CON HISTORY: Chest pain/ Anemia,AAA,ACUTE BLOOD LOSS TECHNIQUE: 1. CT chest without intravenous contrast 2. CT abdomen and pelvis without intravenous contrast or oral contrast COMPARISON: Abdomen compared to 03/31/2018 FINDINGS: Chest: Trace pleural fluid. The ascending aorta measures 3.9 cm in maximum diameter. The descending aorta measures 4.0 cm. Severe atherosclerosis. There are sternal wires. No cardiomegaly. No enlarged lymph nodes. There is scarring in the left lower lobe. No consolidation. 3.7 cm left lower lobe cyst is unchanged. Right apical scarring. Abdomen and pelvis: There is a large abdominal aortic aneurysm measuring 6.5 cm in maximum diameter. Severe atherosclerosis. This is unchanged. The gallbladder is distended. It contains sludge. No focal hepatic abnormality identified on this noncontrasted exam except for a small cyst. No splenomegaly. No inflammation about the pancreas. Normal adrenal glands. There are nonobstructing renal stones. There is scarring to each kidney. The urinary bladder has been removed. Large amount of stool in the rectum. No abscess. Mild scoliosis with degenerative spine changes and mild compression fracture to the L2 vertebra. Left lateral abdominal hernia containing fat and descending colon. The wall is not thickened. IMPRESSION: Chest: 1. Severe atherosclerosis with dilatation of the descending aorta 2. Fibrosis Abdomen and pelvis: 1. Stable large abdominal aortic aneurysm. Severe atherosclerosis. 2. Nephrolithiasis with renal scarring 3. Fecal impaction 4. The urinary bladder has been removed. 5. Left lateral abdominal hernia containing fat and descending colon. 6. Distended gallbladder containing sludge This exam was performed using automated exposure control, adjustment of mA or kV according to patient size, and/or use of iterative reconstruction technique. Electronically signed by Aashish Mcclendon 12/25/2019 6:36 PM
[2019-12-25] MEDS ORDERED: SODIUM CHLORIDE 0.9% INJ SCH (19:45)
[2019-12-25] MEDS ORDERED: SODIUM CHLORIDE 0.9% INJ PRN (19:45)
[2019-12-25] MEDS: LEVAQUIN 500 MG/D5W 500 MG/100 ML IVPB IV SCH (21:03)
[2019-12-25] MEDS: PROTONIX IV SCH (21:04)
[2019-12-25] MEDS: LIPITOR PO SCH (21:06)
[2019-12-25] MEDS: REMERON PO SCH (21:28)
[2019-12-25 21:50] LABS: BASO# 0.02 X1000 (0.0-0.2); BASO% 0.2 % (0.0-0.8); EOS# 0.04 X1000 (0.0-0.7); EOS% 0.4 % (0.0-10.0); HEMATOCRIT 24.4 % (42.0-52.0); HEMOGLOBIN 7.3 g/dL (14.0-18.0); IMM GRAN# 0.18 X1000 (0.0-0.04); IMM GRAN% 1.6 % (0.0-0.5); LYMPH% 11.6 % (20.5-51.1); MCHC 29.9 g/dL (33-37); MCV 93.5 FL (81-99); MONO# 1.08 X1000 (0.11-0.59); MONO% 9.6 % (1.7-9.3); MPV 9.9 FL (7.4-10.4); NEUT# 8.61 X1000 (1.4-6.5); NEUT% 76.6 % (42.2-75.2); PLT 201 X1000 (130-400); RBC 2.61 XMIL (4.7-6.1); RDW 19.2 % (11.5-14.5); WBC 11.23 X1000 (4.8-10.8)
[2019-12-25 22:40] LABS: CK INDEX 22.2 (0.0-2.5); CK-MB 122.3 ng/mL (0.0-5.0)
[2019-12-26] MEDS: ZOSYN 2.25 GM in NS 50 ML IV SCH ×2 (02:26→08:58)
[2019-12-26] MEDS: NITROGLYCERIN TOP SCH ×3 (02:27→18:17)
[2019-12-26 06:32] LABS: BASO# 0.02 X1000 (0.0-0.2); BASO% 0.2 % (0.0-0.8); EOS# 0.07 X1000 (0.0-0.7); EOS% 0.8 % (0.0-10.0); HEMATOCRIT 26.5 % (42.0-52.0); HEMOGLOBIN 8.2 g/dL (14.0-18.0); IMM GRAN# 0.14 X1000 (0.0-0.04); IMM GRAN% 1.6 % (0.0-0.5); LYMPH# 1.25 X1000 (1.2-3.4); LYMPH% 14.1 % (20.5-51.1); MCH 28.8 PG (27-31); MCHC 30.9 g/dL (33-37); MONO# 0.94 X1000 (0.11-0.59); MONO% 10.6 % (1.7-9.3); MPV 9.9 FL (7.4-10.4); NEUT# 6.47 X1000 (1.4-6.5); NEUT% 72.7 % (42.2-75.2); PLT 169 X1000 (130-400); RBC 2.85 XMIL (4.7-6.1); RDW 18.7 % (11.5-14.5); WBC 8.89 X1000 (4.8-10.8)
[2019-12-26 06:59] LABS: ALB/GLOB RATIO 1.1; ALBUMIN 2.8 g/dL (3.5-5.0); CALCIUM 8.6 mg/dL (8.8-10.2); CREATININE 2.2 mg/dL (0.7-1.2); POTASSIUM 5.5 mmol/L (3.5-5.1); TOTAL BILIRUBIN 0.26 mg/dL (0.20-1.00); TOTAL PROTEIN 5.4 g/dL (6.3-8.3)
[2019-12-26] MEDS: PROTONIX IV SCH (08:58)
[2019-12-26] MEDS ORDERED: ASPIRIN PO SCH (09:00)
[2019-12-26 09:08] LABS: BASO# 0.02 X1000 (0.0-0.2); BASO% 0.2 % (0.0-0.8); EOS# 0.06 X1000 (0.0-0.7); EOS% 0.7 % (0.0-10.0); HEMATOCRIT 25.3 % (42.0-52.0); HEMOGLOBIN 7.8 g/dL (14.0-18.0); IMM GRAN# 0.09 X1000 (0.0-0.04); IMM GRAN% 1.1 % (0.0-0.5); LYMPH# 1.04 X1000 (1.2-3.4); LYMPH% 12.8 % (20.5-51.1); MCH 28.8 PG (27-31); MCHC 30.8 g/dL (33-37); MCV 93.4 FL (81-99); MONO# 0.88 X1000 (0.11-0.59); MONO% 10.8 % (1.7-9.3); MPV 9.4 FL (7.4-10.4); NEUT# 6.04 X1000 (1.4-6.5); NEUT% 74.4 % (42.2-75.2); PLT 143 X1000 (130-400); RBC 2.71 XMIL (4.7-6.1); RDW 18.9 % (11.5-14.5); WBC 8.13 X1000 (4.8-10.8)
[2019-12-26] MEDS: PROTONIX 80 MG in NS 80 ML IV SCH ×2 (09:29→18:15)
[2019-12-26] MEDS: RANEXA PO SCH ×2 (10:50→21:56)
[2019-12-26] MEDS: LOPRESSOR PO SCH ×2 (10:50→21:56)
--- NOTE | 2019-12-26 11:00 | ECHO REPORT ---
ORDER DATE: 12/25/2019 INTERPRETING PHYSICIAN: Dr. Denzel Ruiz. ECHOCARDIOGRAPHIC MEASUREMENTS: 1. Interventricular septum 1.7. 2. Left ventricular posterior wall 1.8. 3. Diastolic diameter 4.6. 4. Left atrium 3.9. 5. Aorta 3.6. SUMMARY OF THE 2-DIMENSIONAL IMAGIN. Right ventricle normal cavity size and function. 2. Aortic valve leaflets are calcified. 3. There is [id number] mitral annular calcification. 4. Mitral valve leaflets are normal. 5. Tricuspid valve is normal. 6. Pulmonic valve is normal. 7. There is mild mitral regurgitation. 8. There is left atrial enlargement. 9. Peak velocity across the aortic valve was 2 m/sec. There is severe aortic calcification. Cannot rule out mild aortic stenosis. 10. There is mild tricuspid regurgitation. Peak velocity across the tricuspid valve was 3 m/sec. 11. Pulmonary artery systolic pressure of 46 mmHg. 12. Normal left ventricular cavity size. Severe left ventricular hypertrophy. Estimated ejection fraction of 30%. There is global hypokinesis. In addition, there is apical akinesis. 13. There is no pericardial effusion or obvious intracardiac mass or thrombus seen. cc: MD Ramon Orellana MD
[2019-12-26] MEDS ORDERED: NS 250 ML ONE (13:49)
--- NOTE | 2019-12-26 16:08 | PROGRESS NOTE ---
DATE: 12/26/2019 SUBJECTIVE: Multiple changes have been addressed over the course of the last 24 hours. As described yesterday, I was contacted yesterday morning in regards to chest discomfort. Full evaluation was pursued. Initially, patient was noted to have ST and T-wave abnormalities in the inferolateral leads. A dose of IV morphine was provided. Cardiology was consulted. Full laboratory evaluation was pursued. The patient was noted to have an elevated CK and troponin level. Interestingly, however, patient was noted to have a precipitous drop in his hemoglobin and hematocrit. The patient was typed and crossed. At that point, no evidence of blood loss was identified. The patient was transferred to the ICU. Two units of packed red blood cells were immediately given. With stability of his symptoms, he then was taken for CT scan of the chest, abdomen, and pelvis. CT scan of the chest suggested severe atherosclerosis with dilation of the descending aorta and associated pulmonary fibrosis. CT scan of the abdomen and pelvis suggested a stable large abdominal aortic aneurysm, severe atherosclerosis, nephrolithiasis, left lateral abdominal hernia containing fat and descending colon, distended gallbladder containing sludge and a fecal impaction. Ultimately, by approximately 8 o'clock yesterday evening, the fecal impaction resolved spontaneously and patient began to pass melena. Overnight, patient was followed with serial hemoglobin and hematocrit evaluations. One additional unit was provided, totaling 3 units in 24 hours. With transfusions, his chest pain ultimately resolved. This morning, patient states that he is feeling reasonably well. Chest pain has resolved. He has had no evidence of fevers, chills, nausea, or vomiting. Dr. Ruiz with Cardiology and Dr. Lopez with Gastroenterology are involved in his care. Ultimately, patient's initial urine culture returned positive for Enterobacter cloacae. OBJECTIVE: Vital signs: T-max 98.8 degrees, heart rate 63 to 73, respirations 15 to 22, blood pressure 101 to 139 over 49 to 68. General: Elderly, no acute distress. Cardiovascular: Regular rate and rhythm. No significant murmurs, rubs, or gallops. Pulmonary: Clear to auscultation bilaterally. Abdomen: Soft, nontender, nondistended. Positive bowel sounds. Extremities: Moves all extremities well. No significant clubbing, cyanosis, or edema. Dermatologic: Evaluation reveals no evidence of rash. LABORATORY DATA: White blood cell count 8.13, hemoglobin 7.8, hematocrit 25.3, platelet count 143,000. Sodium 141, potassium 5.5, chloride 109, bicarb 21, BUN 57, creatinine 2.2, glucose 93, calcium 8.6, total bilirubin 0.26, total protein 5.4, albumin 2.8, alkaline phosphatase 63, AST 62, ALT 11. ASSESSMENT AND PLAN: 1. Upper gastrointestinal bleed - As above, this patient's hemoglobin and hematocrit dropped precipitously from 9.5 and 32.1 on December 23, 2019 to 4.7 and 15.7 on December 25, 2019. Three units of packed red blood cells have been provided. Dr. Lopez has been consulted. In the setting of a ggl-PI-vrmnejdti acute myocardial infarction, acute intervention has not been pursued. At present time, patient denies current symptoms. We will continue supportive care with plans for EGD intervention once Cardiology has cleared patient for further evaluation. As his hemoglobin and hematocrit dropped slightly from last draw, 1 additional unit will be provided today. We will follow serial hemoglobin and hematocrit evaluations. 2. Per-ZG-whmcednam myocardial infarction - This likely was a consequence of his acute blood loss. Troponin has trended up to 722. CK level has to trended up to 550. He currently is chest pain-free. We will continue optimized medical management with exception of anticoagulants. I appreciate Dr. Ruiz's consultation. 3. Urinary tract infection - Urine culture grew Enterobacter cloacae. Yesterday, levofloxacin was added. This does appear to be sensitive. We will discontinue Zosyn therapy. The patient is currently afebrile. Blood cultures are negative today. 4. Acute on chronic kidney disease - The patient's creatinine has increased slightly to 2.2. Potassium has increased slightly to 5.5. There was no evidence of EKG changes yesterday. We will repeat an EKG today. We will start IV fluids in addition to his blood transfusions. If this continues to trend upwards, we will consider Nephrology consultation. 5. Nausea and vomiting - This likely was cardiac in etiology. With blood transfusion and resolution of his chest pain, nausea has resolved. 6. Hypertension - The patient's blood pressure is reasonably stable at present time. We will avoid antihypertensive agents with exception of metoprolol as prescribed by Cardiology. 7. Hyperlipidemia - We will continue atorvastatin therapy. 8. Abdominal aortic aneurysm - CT scan from yesterday suggested no evidence of acute change. We will remain aware. 9. Multiple myeloma - Patient is followed by Dr. Moreno. We will remain aware. 10. Disposition - At this point, patient continues to require assisted care in the ICU setting. We will plan transition to the floor as his condition stabilizes. cc: MD Ramon Chicas MD
[2019-12-26] MEDS: NS 1,000 ML IV SCH (16:24)
--- NOTE | 2019-12-26 17:00 | EKG Report ---
Test Performed on : 12/26/2019 12:00:00 PM Test Reason : non qmi Blood Pressure : / mmHG Vent. Rate : 068 BPM Atrial Rate : 068 BPM P-R Int : 112 ms QRS Dur : 112 ms QT Int : 462 ms P-R-T Axes : 000 060 -65 degrees QTc Int : 491 ms Normal sinus rhythm. T wave abnormality, consider anterior ischemia Prolonged QT Abnormal ECG When compared with ECG of 25-DEC-2019 09:17, (Unconfirmed) QRS duration has decreased ST no longer depressed in Inferior leads ST no longer depressed in Anterolateral leads T wave inversion now evident in Anterior leads T wave inversion no longer evident in Lateral leads Confirmed by [place] MD ([id number]) on 12/27/2019 4:14:57 PM
[2019-12-26] MEDS: LEVAQUIN 500 MG/D5W 500 MG/100 ML IVPB IV SCH (20:45)
[2019-12-26 20:54] LABS: BASO# 0.02 X1000 (0.0-0.2); BASO% 0.3 % (0.0-0.8); EOS# 0.09 X1000 (0.0-0.7); EOS% 1.2 % (0.0-10.0); HEMATOCRIT 29.4 % (42.0-52.0); HEMOGLOBIN 9.2 g/dL (14.0-18.0); IMM GRAN# 0.17 X1000 (0.0-0.04); IMM GRAN% 2.2 % (0.0-0.5); LYMPH# 1.17 X1000 (1.2-3.4); LYMPH% 15.4 % (20.5-51.1); MCH 30.2 PG (27-31); MCHC 31.3 g/dL (33-37); MCV 96.4 FL (81-99); MONO# 0.96 X1000 (0.11-0.59); MONO% 12.6 % (1.7-9.3); MPV 9.9 FL (7.4-10.4); NEUT% 68.3 % (42.2-75.2); PLT 140 X1000 (130-400); RBC 3.05 XMIL (4.7-6.1); RDW 18.5 % (11.5-14.5); WBC 7.61 X1000 (4.8-10.8)
[2019-12-26] MEDS: LIPITOR PO SCH (21:56)
[2019-12-26] MEDS: REMERON PO SCH (21:56)
[2019-12-27] MEDS: NS 1,000 ML IV SCH (03:13)
[2019-12-27] MEDS: NITROGLYCERIN TOP SCH ×3 (03:14→20:22)
[2019-12-27 03:40] LABS: BASO# 0.01 X1000 (0.0-0.2); BASO% 0.2 % (0.0-0.8); EOS% 1.6 % (0.0-10.0); HEMATOCRIT 26.3 % (42.0-52.0); HEMOGLOBIN 8.2 g/dL (14.0-18.0); IMM GRAN# 0.13 X1000 (0.0-0.04); LYMPH# 0.98 X1000 (1.2-3.4); LYMPH% 15.4 % (20.5-51.1); MCH 29.3 PG (27-31); MCHC 31.2 g/dL (33-37); MCV 93.9 FL (81-99); MONO# 0.97 X1000 (0.11-0.59); MONO% 15.2 % (1.7-9.3); MPV 9.5 FL (7.4-10.4); NEUT# 4.19 X1000 (1.4-6.5); NEUT% 65.6 % (42.2-75.2); PLT 140 X1000 (130-400); WBC 6.38 X1000 (4.8-10.8)
[2019-12-27 03:48] LABS: ALB/GLOB RATIO 1.1; ALBUMIN 2.6 g/dL (3.5-5.0); CALCIUM 8.1 mg/dL (8.8-10.2); CREATININE 1.9 mg/dL (0.7-1.2); POTASSIUM 4.9 mmol/L (3.5-5.1); TOTAL BILIRUBIN 0.23 mg/dL (0.20-1.00); TOTAL PROTEIN 4.9 g/dL (6.3-8.3)
[2019-12-27] MEDS: MORPHINE IV PRN (05:42)
[2019-12-27] MEDS: PROTONIX 80 MG in NS 80 ML IV SCH (05:43)
--- NOTE | 2019-12-27 06:19 | GASTROENTEROLOGY CONSULTATION ---
DATE: 12/26/2019 PRIMARY CARE PHYSICIAN: Dr. Rosenberg. REQUESTING PHYSICIAN: Dr. Vahid Cortes REASON FOR CONSULTATION: GI bleed. HISTORY OF PRESENT ILLNESS: Mr. Dean is an 89-year-old male who was admitted on 12/24/2019 for hypertension and weakness. He came to the ER where he was diagnosed with infection of his ileal conduit. He was given Septra DS for treatment and sent home after getting IV fluids, but after going home, he continued to feel weak and short of breath, called the ambulance, and came to the ER. He was admitted at this time for possible UTI. During the hospital course, he complained of chest pain and elevated cardiac troponins. He was seen by Cardiology and he underwent Cardiology workup. During the hospital course, he was also noted to drop his hemoglobin from 9.5 to 4.7 a matter of 48 hours. He was noted to have soft black tarry stools and Gastroenterology was consulted for further management. PAST MEDICAL HISTORY: Bladder cancer with total cystectomy and ileal conduit. The conduit has chronic stool leak. Atherosclerosis of [place] coronary vessel status post CABG in 1978. He had stents in 2004. Large abdominal aortic aneurysm despite repair in 1990. Hypertension. Hyperlipidemia. Chronic back pain secondary to lumbar spinal stenosis. He is status post laminectomy. Cervical laminectomy. Left psoas abscess requiring IV antibiotics. History of multiple myeloma diagnosed in [address] Moreno. PAST SURGICAL HISTORY: CABG. Coronary stents. EGD in 2013. Back surgeries. Cystectomy and ileal conduit for bladder cancer. ALLERGIES: Demerol. SOCIAL HISTORY: He is retired from [employer]. He has a 40 pack year history of smoking, quit in 1973. He does not drink alcohol. He lives independently. His daughter is present at bedside. FAMILY HISTORY: Noncontributory. REVIEW OF SYSTEMS: He denies any fevers, rigors, or chills. He did have chest pain on admission, which has now improved. His shortness of breath he has also improved. He has recurrent urinary tract infection likely stemming from the ileal conduit site. He had previous history of duodenal ulcer seen on last EGD in 2013 secondary to NSAIDs. He has history of chronic back pain. He denies any neurological complaints. MEDICATIONS IN HOSPITAL: 1. Lipitor. 2. Tylenol. 3. Aspirin 81 mg. 4. Levaquin. 5. Metoprolol. 6. Remeron. 7. Morphine. 8. Nitroglycerin. 9. Normal saline at 75 mL per hour. 10. Protonix drip. 11. Ranexa 1000 mg p.o. b.i.d. He is currently NPO. PHYSICAL EXAMINATION: Vital Signs: Temperature of 98.8 degrees, pulse rate 73, respiratory 15, blood pressure 129/68 and saturating 100% on 3 L nasal cannula. Body weight of 207 pounds. BMI 24.5 kg/m2. General: This gentleman is moderately malnourished lying in bed in no acute distress. HEENT: Pale conjunctivae. No icterus. Pupils equal, and reactive to light and accommodation. Neck: Supple. Abdomen: Soft and nontender. Mild discomfort. No rebound. No guarding. Extremities: No cyanosis or clubbing. Neurologic: He is alert, awake and oriented. LABORATORY: Hemoglobin and hematocrit is 7.8 and 25.3, white count of 8.13, and platelet count of 143,000. MCV of 93.8. Sodium 141, potassium 4.5, chloride 109, bicarb 21, anion gap 11, BUN of 57, creatinine of 2.2, glucose of 93, and calcium 8.6. Total bilirubin is 0.26. AST 62, ALT 11, and alkaline phosphatase 63. Total protein is 5.4 and albumin of 2.8. Troponins are still rising to 722 and then trending up. Urinalysis showing positive leukocytes. Stool for occult blood was positive. Blood cultures x2 were drawn. They are currently pending. Urine culture showing Enterobacter cloacae species and resistant to cefazolin, ceftazidime, ceftriaxone, and Zosyn. Flu screen was negative for A and B. IMPRESSION AND PLAN: 1. Melena. 2. History of peptic ulcer disease followed by renal critical team. 3. Anemia. 4. History of coronary disease status post CABG in 1998. 5. History of coronary stents in 2004 likely non Q wave myocardial infarction being followed by Dr. Ruiz. 6. History of bladder cancer status post total cystectomy and ileal conduit. 7. UTI currently on antibiotics. 8. Acute on chronic kidney disease. 9. Abdominal aortic aneurysm. 10. Multiple myeloma being followed by Dr. Moreno. 11. Initial constipation with rectal fecal impaction, but now having melena. RECOMMENDATIONS: To continue on Protonix drip. We will schedule for EGD tomorrow under anesthesia if cleared by Cardiology as the patient is having unstable angina versus non-Q-wave NC. We will continue gentle fluids. We will transfuse to keep hematocrit more than 27%. He is on IV pain control and morphine. He is on IV antibiotics Levaquin for UTI. The risks, benefits, indications, and alternatives for EGD was explained to the patient and family at bedside. All questions answered. The patient and family acknowledged understanding, and agreed to proceed as above. I also spoke with Dr. Vahid Cortes. The above plans were discussed with the patient's family and all questions were answered. Please call with any further questions. cc: MD Vahid Pugh MD Ashish K. Basu, MD Manish Arora, MD Timothy P. Weirich, MD
[2019-12-27] MEDS ORDERED: DIPRIVAN 1% ONE (07:36)
[2019-12-27] MEDS ORDERED: XYLOCAINE-MPF 2% ONE (07:38)
--- NOTE | 2019-12-27 08:39 | ENDOSCOPY OPERATIVE NOTE ---
[facility] ENDOSCOPY OPERATIVE NOTE , EGD PROCEDURE REPORT EXAM DATE: 12/27/2019 PATIENT NAME: Tania Dean MR#: [id number] BIRTHDATE: 1930 ATTENDING: Everette Lopez MD STATUS: inpatient DIGITAL ACCOUNT SUPERVISOR: Charity Bennett and Scarlett Brito INDICATIONS: The patient is a 89 yr old male here for an EGD due to GI Bleed, Anemia required 4 unit s of PRBCs, H/o AAA, CAD, Troponin leak, constipation. PROCEDURE PERFORMED: EGD, diagnostic MEDICATIONS: Per Anesthesia ESTIMATED BLOOD LOSS: None CONSENT: The patient understands the risks and benefits of the procedure and understands that these r isks include, but are not limited to: sedation, allergic reaction, infection, perforation and/or bleeding. Alternative means of evaluation and treatment include, among others: physical exam, x-rays, and/or surgical intervention. The patient elects to proceed with this endoscopic procedure. DESCRIPTION OF PROCEDURE: During pre-op preparation period all mechanical and medical equipment was c hecked for proper function. Hand hygiene and appropriate measures for infection prevention was taken. After the risks, benefits and alternatives of the procedure were thoroughly explained, Informed consent was verified, confirmed and timeout was successfully executed by the treatment team. The patient was anesthetized with topical anesthesia and the endoscope was introduced through the mouth and advanced to the second portion of the duodenum. Retroflexion wa s performed in the stomach and revealed no abnormalities. The gastroscope was then slowly withdrawn and removed. The p atient's toleration of the procedure was good. ESOPHAGUS: Distal esophageal ring was noted. EGD scope was able to traverse with mild resistance. STOMACH: Moderate gastritis (inflammation) was found in the gastric body, prepyloric region stomach, and gastric antrum. DUODENUM: Severe duodenal inflammation was found in the duodenal bulb and 1st part duodenum. The du odenal mucosa showed no abnormalities in the 2nd part of the duodenum. ADVERSE EVENTS: There were no complications. IMPRESSIONS: 1. Distal esophageal ring was noted. EGD scope was able to traverse with mild resi stance 2. Gastritis (inflammation) was found in the gastric body, prepyloric region stomach, and gastric an trum 3. Duodenal inflammation was found in the duodenal bulb and 1st part duodenum 4. The duodenal mucosa showed no abnormalities in the 2nd part of the duodenum RECOMMENDATIONS: PPI BID for 90 days and then wean down to Pepcid 20 mg twice daily. Avoid NSAIDS Clear Liquid diet and advance as tolerated. Start Iron C BID and MVI QD for 90 days repeat EGD in 3 months if continues to be Anemic. GERD lifetsyle changes RTC 3 months. REPEAT EXAM: Everette Lopez MD eSigned: Everette Lopez MD 12/27/2019 8:38 AM CC: CPT CODES: 43303 Upper gastrointestinal endoscopy including esophagus, stomach, and either the du odenum and/or jejunum as appropriate; diagnostic, with or without collection of specimen(s) by brushing or washing (separate procedure) ICD CODES: The ICD and CPT codes recommended by this software are interpretations from the data that the [facility] staff has captured with the software. The verification of the translation of this report to the ICD and CPT co felisa and modifiers is the sole responsibility of the health care institution and practicing physician where this report was generated. [employer] will not be held responsible for the validity of the ICD and CPT codes i ncluded on this report. [employer] assumes no liability for data contained or not contained herein. CPT is a registered tra demark of the [place] [employer]. PATIENT NAME: Tania Dean MR#: [id number]
[2019-12-27] MEDS ORDERED: PROTONIX IV SCH (08:50)
[2019-12-27] MEDS: RANEXA PO SCH ×2 (10:56→20:20)
[2019-12-27] MEDS: CENTRUM SILVER PO SCH ×2 (10:56→11:02)
[2019-12-27] MEDS: LOPRESSOR PO SCH ×2 (10:57→20:20)
[2019-12-27] MEDS: ICAR-C PO SCH ×3 (10:59→20:20)
[2019-12-27 12:11] LABS: HEMATOCRIT 32.4 % (42.0-52.0); HEMOGLOBIN 10.1 g/dL (14.0-18.0); RBC 3.44 XMIL (4.7-6.1); WBC 6.69 X1000 (4.8-10.8)
[2019-12-27 12:12] LABS: BASO# 0.01 X1000 (0.0-0.2); BASO% 0.1 % (0.0-0.8); EOS# 0.08 X1000 (0.0-0.7); EOS% 1.2 % (0.0-10.0); IMM GRAN# 0.14 X1000 (0.0-0.04); IMM GRAN% 2.1 % (0.0-0.5); LYMPH# 0.95 X1000 (1.2-3.4); LYMPH% 14.2 % (20.5-51.1); MCH 29.4 PG (27-31); MCHC 31.2 g/dL (33-37); MCV 94.2 FL (81-99); MONO# 0.78 X1000 (0.11-0.59); MONO% 11.7 % (1.7-9.3); MPV 9.6 FL (7.4-10.4); NEUT# 4.73 X1000 (1.4-6.5); NEUT% 70.7 % (42.2-75.2); PLT 148 X1000 (130-400)
[2019-12-27] MEDS ORDERED: MYLICON PO PRN (16:39)
[2019-12-27] MEDS: MYLICON PO PRN ×3 (16:57→20:19)
--- NOTE | 2019-12-27 18:24 | PROGRESS NOTE ---
DATE: 12/27/2019 SUBJECTIVE: I reviewed the patient's chart from the weekend and noted the severe and sharp decline in the patient's overall blood volume without obvious source of bleeding other than melenic stools, which were new onset since he came to the hospital. The patient states he is feeling better. He just got back from EGD and has blood being transfused as we speak. OBJECTIVE: Vital Signs: 97.2, 74, 16, 129/64, 97% saturated on room air. PHYSICAL EXAMINATION: The patient is alert, oriented, conversive and appropriate.Lungs: Clear. Cardiovascular: Regular. Abdomen: Benign. Extremities: Showed trace edema. LABORATORY: Initial hemoglobin this morning was 8.2. He was transfused a unit of packed red cells. Followup hemoglobin was 10.1. BUN 46, creatinine 1.9. ASSESSMENT AND PLAN: 1. The patient has an upper GI bleed. However, I reviewed the EGD report shortly before doing this dictation. It revealed a lot of duodenal inflammation. The patient was transfused another back unit of packed red cells and this has returned into a comfortable range. We will recheck it in the morning. 2. The patient was reported to have a non-ST elevation myocardial infarction, with elevated troponin and CK elevated. He is pain free at the present time. This was likely precipitated by his acute blood loss. Dr. Ruiz available in consultation. I will have to check with him as to the appropriateness of using a nitrate in the face of hypotension and acute blood loss. 3. 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 It grew out Enterobacter. The Zosyn was discontinued. Levofloxacin was added. 4. The patient's chronic kidney disease seems to have improved with a creatinine 1.9. BUN is still somewhat elevated, which would be consistent with upper gastrointestinal bleed. 5. Abdominal aortic aneurysm. Aware. 6. Multiple myeloma. Aware. 7. Because the patient continues run low blood pressures, I am going to keep him in the ICU. We will recheck hemoglobin and hematocrit tomorrow. cc: Ramon Rosenberg MD [facility]
[2019-12-27] MEDS: LEVAQUIN 250 MG/D5W 250 MG/50 ML IVPB IV SCH (18:43)
[2019-12-27] MEDS: LIPITOR PO SCH (20:21)
[2019-12-27] MEDS: REMERON PO SCH (20:21)
[2019-12-28] MEDS: NITROGLYCERIN TOP SCH (05:48)
[2019-12-28 06:55] LABS: BASO# 0.01 X1000 (0.0-0.2); BASO% 0.1 % (0.0-0.8); EOS# 0.08 X1000 (0.0-0.7); EOS% 1.1 % (0.0-10.0); HEMATOCRIT 31.6 % (42.0-52.0); LYMPH# 1.05 X1000 (1.2-3.4); LYMPH% 14.7 % (20.5-51.1); MCH 30.1 PG (27-31); MCHC 31.6 g/dL (33-37); MCV 95.2 FL (81-99); MONO# 1.03 X1000 (0.11-0.59); MONO% 14.4 % (1.7-9.3); MPV 10.2 FL (7.4-10.4); NEUT# 4.98 X1000 (1.4-6.5); NEUT% 69.7 % (42.2-75.2); PLT 156 X1000 (130-400); RBC 3.32 XMIL (4.7-6.1); WBC 7.15 X1000 (4.8-10.8)
[2019-12-28 07:32] LABS: CALCIUM 8.7 mg/dL (8.8-10.2); CREATININE 1.8 mg/dL (0.7-1.2); POTASSIUM 4.2 mmol/L (3.5-5.1)
[2019-12-28] MEDS: MORPHINE IV PRN ×3 (07:57→14:52)
[2019-12-28] MEDS: RANEXA PO SCH ×2 (08:01→21:04)
[2019-12-28] MEDS: CENTRUM SILVER PO SCH (08:02)
[2019-12-28] MEDS: ICAR-C PO SCH ×2 (08:02→21:05)
[2019-12-28] MEDS: LOPRESSOR PO SCH ×2 (08:04→21:05)
[2019-12-28] MEDS ORDERED: TYLENOL PO PRN (09:23)
[2019-12-28] MEDS: PHENERGAN IV PRN ×2 (10:30→14:53)
--- NOTE | 2019-12-28 12:02 | GASTROENTEROLOGY PROGRESS NOTE ---
DATE: 12/28/2019 SUBJECTIVE: Mr. Dean is an 89-year-old, male resting in bed. The patient has denied any abdominal pain, nausea, or vomiting. He is on a clear liquid diet and he is able to tolerate his diet fairly well. The patient did have a bowel movement today and it shows that he had some liquid black tarry stools. The patient's hemoglobin and hematocrit today are 10.0 and 31.6. The patient has an ostomy bag on the right side of the abdomen. OBJECTIVE: Vital Signs: Temperature 100.1 degrees, pulse 64, respirations 16, blood pressure 123/57, oxygen saturation 97% on room air. The patient's weight is 207 pounds. BMI is 24.5 kg/m2. General: He is alert, oriented x3, and in no acute distress. HEENT: Pale conjunctivae. No icterus. PERRL. Neck: Supple. Lungs: Clear to auscultation. Cardiovascular: Regular rate and rhythm. Abdomen: Soft, nontender. Ostomy on the right side. Active bowel sounds heard in all 4 quadrants. Extremities: No clubbing, no cyanosis, no edema. Pedal pulses 2+ present bilaterally. Neurologic: He is alert and oriented x3. Labs: WBCs are 7.15, RBCs 3.32, hemoglobin is 10.0, hematocrit is 31.6, platelet count is [id number] Sodium is 140, potassium is 4.2, chloride is 109, carbon dioxide 21, anion gap 10, BUN 33, creatinine 1.8, glucose 88, calcium is 8.7. Total bilirubin is 0.23, AST 38, ALT is 9, alkaline phosphatase is 61, albumin is 2.6. EGD FINDINGS: distal esophageal ring noted with mild resistance. Gastritis in the gastric perpyloric region of the stomach and gastric antrum. Duodenal inflammation in the duodenal bulb and 1st part of the duodenum. IMPRESSION AND PLAN: 1. Melena. 2. Anemia. 3. Urinary tract infection. 4. Acute on chronic kidney disease. 5. Abdominal aortic aneurysm. 6. Multiple myeloma. 7. History of peptic ulcer disease. 8. Coronary artery disease s/p coronary stents. 9. History of bladder cancer s/p total cystectomy. PLAN: Mr. Dean is an 89-year-old, male with a history of bladder cancer, coronary artery disease, multiple myeloma. GI has been following him for his melena and anemia. An EGD was done yesterday. There was a distal esophageal ring that was noted with mild resistance. Gastritis was found in the gastric body, prepyloric region, stomach, and the gastric antrum. Duodenal inflammation was found in the duodenal bulb and first part of the duodenum. The duodenal mucosa showed no abnormalities. We will continue patient with PPIs twice a day for 90 days and then wean to Pepcid 20 mg twice a day as needed. The patient has been advised to avoid NSAIDs. He is currently on a clear liquid diet. We will advance his diet to heart healthy diet. The patient is also on an iron tablet twice a day and multivitamin once a day for his anemia. He is currently on antibiotics for his UTI. The patient will need a repeat EGD in 3 months if his anemia continues. The patient has been advised to follow up as an outpatient in [address] Lopez. We will continue to monitor the patient and follow the plan of care per PCP. This plan was discussed with Dr. Colindres. Please call us for any further questions or concerns. Dictated by MEMO Hoskins for Scotty Colindres MD cc: Ramon Rosenberg MD [facility]
[2019-12-28] MEDS: LEVAQUIN 250 MG/D5W 250 MG/50 ML IVPB IV SCH (19:00)
--- NOTE | 2019-12-28 19:40 | PROGRESS NOTE ---
DATE: 12/28/2019 SUBJECTIVE: The patient is awake and alert. His son came in the middle of our interview. The patient stated that he had a large volume of diarrhea that messed up the bed. He stated that it was dark. He is unsure whether there was blood present. He does not have any abdominal pain. OBJECTIVE: Vital Signs: Temperature is registered at 100.1, pulse rate 64, respiratory rate 17, blood pressure is 123/57, 97% saturated on room air. General: The patient is alert, oriented, conversive, and appropriate. Lungs: Clear. Cardiovascular: Regular. He is not tachycardic. Extremities: No peripheral edema. LABORATORY: Hemoglobin 10.0, hematocrit 31.6. BUN 33, creatinine 1.8. ASSESSMENT AND PLAN: 1. Patient's gastrointestinal bleed has been managed by the Gastroenterology team. His hemoglobin and hematocrit were stable this morning after receiving a transfusion yesterday. It is unclear whether the patient's diarrhea was related to his antibiotic use or whether this was another melenic stool. We will continue to follow blood pressure parameters and recheck a count in the morning. 2. The patient was reported to have a fod-LG-qeskrtu elevation myocardial infarction likely due to acute blood loss. The patient was put on a beta-qasim, which I reduced the dose slightly because of his low blood pressure and he was also on nitrates topically. I have discontinued those today. We will continue to monitor his progress and most certainly act appropriately should he suffer any chest pain. 3. The patient has ileal pouchitis. He is on levofloxacin. 4. The patient has chronic renal insufficiency. Shows a creatinine at 1.8, which is very close to his baseline. 5. Abdominal aortic aneurysm. Aware. 6. Multiple myeloma. Aware. 7. Transfer to the floor. Orders were written and will transfer as soon as a bed is available, as I think the patient is stable at the present time. 8. Rather inexplicable elevation in temperature this morning. We will continue to monitor this and may have to consult ID if this issue continues to present itself. At present, the patient is on levofloxacin every 24 hours as dictated by his urine culture. cc: Ramon Rosenberg MD
[2019-12-28] MEDS: LIPITOR PO SCH (21:04)
[2019-12-28] MEDS: PROTONIX PO SCH (21:05)
[2019-12-28] MEDS: REMERON PO SCH (21:05)
[2019-12-29 07:56] LABS: BASO# 0.01 X1000 (0.0-0.2); BASO% 0.2 % (0.0-0.8); EOS% 1.7 % (0.0-10.0); HEMATOCRIT 32.9 % (42.0-52.0); HEMOGLOBIN 10.2 g/dL (14.0-18.0); IMM GRAN% 1.7 % (0.0-0.5); LYMPH# 0.91 X1000 (1.2-3.4); LYMPH% 15.2 % (20.5-51.1); MCH 29.3 PG (27-31); MCV 94.5 FL (81-99); MONO# 0.85 X1000 (0.11-0.59); MONO% 14.2 % (1.7-9.3); MPV 9.7 FL (7.4-10.4); NEUT# 4.03 X1000 (1.4-6.5); PLT 149 X1000 (130-400); RBC 3.48 XMIL (4.7-6.1); RDW 17.3 % (11.5-14.5)
[2019-12-29 08:07] LABS: CALCIUM 8.8 mg/dL (8.8-10.2); CREATININE 1.6 mg/dL (0.7-1.2); POTASSIUM 4.4 mmol/L (3.5-5.1)
[2019-12-29] MEDS: LOPRESSOR PO SCH ×2 (09:37→22:42)
[2019-12-29] MEDS: PROTONIX PO SCH ×2 (09:37→22:41)
[2019-12-29] MEDS: CENTRUM SILVER PO SCH (09:37)
[2019-12-29] MEDS: ICAR-C PO SCH ×2 (09:37→22:42)
[2019-12-29] MEDS: RANEXA PO SCH ×2 (09:38→22:42)
--- NOTE | 2019-12-29 11:08 | GASTROENTEROLOGY PROGRESS NOTE ---
DATE: 12/29/2019 SUBJECTIVE: Mr. Dean is an 89-year-old male resting in bed. Family is at the bedside. The patient denied any abdominal pain, nausea or vomiting. He is currently on a heart healthy diet, and is able to tolerate his diet well. The patient has denied having any bowel movements today, but had one yesterday.. OBJECTIVE: Vital Signs: Temperature 98.0 degrees, pulse 67, respirations 18, blood pressure 137/63, oxygen saturation 93% on room air. The patient's weight is 207 pounds. BMI is 24.5 kg/m2. General: He is alert, oriented x3, and in no acute distress. HEENT: Pale conjunctivae, no icterus. PERRL. Neck: Supple. Lungs: Clear to auscultation. Cardiovascular: Regular rate and rhythm. Abdomen: Soft, nontender, nondistended. Active bowel sounds heard in all 4 quadrants. Extremities: No clubbing, no cyanosis, no edema. Pedal pulses 2+ present bilaterally. Neurologic: Alert and oriented x3. LABS: WBC 6.0, RBC 3.48, hemoglobin 10.2, hematocrit is 32.9, platelet count is 149. Sodium 138, potassium 4.4, chloride is 106, carbon dioxide 22, anion gap 10, BUN 27, creatinine is 1.6, glucose is 92, calcium 8.8. IMPRESSION AND PLAN: 1. Melena. 2. Anemia. 3. Urinary tract infection. 4. Acute on chronic kidney disease. 5. Abdominal aortic aneurysm. 6. Multiple myeloma. 7. History of peptic ulcer disease. 8. Coronary artery disease status post coronary stents. 9. History of bladder cancer status post cystectomy. PLAN: Mr. Dean is an 89-year-old male with a history of bladder cancer, coronary artery disease and multiple myeloma. Gastroenterology is following him for his melena and anemia. The patient currently has denied any more bleeding episodes. His hemoglobin and hematocrit today is 10.2 and 32.9. It has been trending upwards. The patient is on a heart healthy diet and is able to tolerate his diet well. We will continue him with his PPIs twice a day for 90 days. The patient is on iron tablet twice a day and multivitamin once a day for his anemia. The patient will need a repeat EGD in 3 months if his anemia still continues. He can follow us up as an outpatient in 4 to [address] Lopez. We will continue to monitor the patient and follow the plan of care per PCP. This plan was discussed with Dr. Colindres. Please call us for any further questions or concerns. Dictated by MEMO Hoskins for Scotty Colindres MD cc: Ramon Rosenberg MD MTDTravis
[2019-12-29] MEDS: MYLICON PO PRN (11:18)
[2019-12-29] MEDS: LEVAQUIN 250 MG/D5W 250 MG/50 ML IVPB IV SCH (18:26)
--- NOTE | 2019-12-29 19:31 | PROGRESS NOTE ---
DATE: 12/29/2019 SUBJECTIVE: The patient states that he is feeling better. He actually requested to go home today, but I told him that would not happen until his diet was advanced and we had at least 3 days in a row where his hematocrit and blood pressure were stable. We are nearing that point. OBJECTIVE: Vital signs: 98.0, 67, 18, 137/63, 99% saturated on room air. Lungs are clear. Cardiovascular is regular. Extremities show no peripheral edema. LABORATORY DATA: White cell count 6.0, hemoglobin 10.2. BUN 27, creatinine 1.6. ASSESSMENT AND PLAN: 1. The patient's gastrointestinal bleed has been handled by the Gastroenterology team. His diet is going to be advanced today. Hemoglobin and hematocrit are stable for the third day in a row. Blood pressure is improved. The patient did have some other diarrhea today, but he is not concerned with it. 2. The patient had a ain-[id number]-[id number] elevation myocardial infarction, likely due to acute blood loss. I reduced the patient's beta-qasim and eliminated his nitroglycerin yesterday. He feels much better and his blood pressure is more along his baseline levels. 3. The patient has ileal pouchitis. He is on levofloxacin, which has been successful in the past. 4. Chronic renal insufficiency has returned to roughly his baseline levels, with a creatinine of 1.6. 5. Abdominal aortic aneurysm. Aware. 6. Multiple myeloma. Aware. 7. The patient did well with transfer to the floor. We are hopeful that if he can eat regular diet and not have any untoward events, he may be able to go home tomorrow. He will need home health immediately, and wants to use [facility] for home health evaluation and for physical therapy. cc: Ramon Rosenberg MD
[2019-12-29] MEDS: LIPITOR PO SCH (22:42)
[2019-12-29] MEDS: REMERON PO SCH (22:42)
[2019-12-30 07:35] VITALS: BP 123/53
[2019-12-30 08:15] LABS: EOS# 0.08 X1000 (0.0-0.7); EOS% 1.3 % (0.0-10.0); HEMATOCRIT 32.6 % (42.0-52.0); HEMOGLOBIN 10.1 g/dL (14.0-18.0); LYMPH# 0.87 X1000 (1.2-3.4); LYMPH% 13.9 % (20.5-51.1); MCH 29.6 PG (27-31); MCV 95.6 FL (81-99); MONO# 0.76 X1000 (0.11-0.59); MONO% 12.1 % (1.7-9.3); MPV 9.7 FL (7.4-10.4); NEUT# 4.56 X1000 (1.4-6.5); NEUT% 72.7 % (42.2-75.2); PLT 140 X1000 (130-400); RBC 3.41 XMIL (4.7-6.1); RDW 17.3 % (11.5-14.5); WBC 6.27 X1000 (4.8-10.8)
[2019-12-30 08:42] LABS: CALCIUM 8.7 mg/dL (8.8-10.2); CREATININE 2.2 mg/dL (0.7-1.2); POTASSIUM 4.2 mmol/L (3.5-5.1)
[2019-12-30] MEDS: RANEXA PO SCH (09:52)
[2019-12-30] MEDS: CENTRUM SILVER PO SCH (09:52)
[2019-12-30] MEDS: ICAR-C PO SCH (09:52)
[2019-12-30] MEDS: LOPRESSOR PO SCH (09:53)
[2019-12-30] MEDS: PROTONIX PO SCH (09:53)
--- NOTE | 2019-12-30 19:10 | GASTROENTEROLOGY PROGRESS NOTE ---
DATE: 12/30/2019 SUBJECTIVE: Patient resting in bed. His son was present at bedside. He denies any new complaints. He is feeling better. Denies any fevers, rigors, chills. Denies any nausea, vomiting blood or passing blood in the stools. OBJECTIVE: Vital signs: Temperature 97.8 degrees, pulse of 67, respiratory rate 19, blood pressure 122/52, saturating 98% room air. Body weight of 207 pounds. BMI 24.5 kg. General: Mr. Dean is lying in bed, in no acute distress. HEENT: Pale conjunctivae. No icterus. Pupils equal, reactive to light and accommodation. Neck: Supple. Abdomen: Soft, nontender, nondistended. No guarding or rebound. Extremities: No cyanosis, clubbing. Neurologic: Alert, awake, oriented x3. LABS: Hemoglobin and hematocrit is 10.1 and 32.6. White count of 6.7, platelet count of 140,000. Sodium 140, potassium 4.2, chloride 108, bicarb 20, anion gap 10, BUN of 30, creatinine 2.2, glucose of 97, calcium 8.7. Stool for occult blood is positive. IMPRESSION AND PLAN: 1. Melena. 2. Anemia. 3. Urinary tract infection. 4. Acute on chronic kidney. 5. Abdominal aortic aneurysm. 6. Multiple myeloma. 7. History of peptic ulcer disease back in 2013. 8. Coronary artery disease status post coronary stents. 9. History of bladder cancer status post cystectomy. 10. Recent esophagogastroduodenoscopy showing evidence of severe erosive duodenitis. RECOMMENDATIONS: The patient will continue on proton pump inhibitor b.i.d. for 90 days. He will continue iron C b.i.d. for 90 days. He will be on a multivitamin once daily for 90 days. I will repeat EGD in 3 months. If the anemia persists, can follow with us in clinic in 4 to 6 weeks of discharge. He will avoid any NSAIDs, other than recommended by his primary care physician and his primary care team. The patient will call us if anything changes. The patient will be continued on gastroesophageal reflux life changes. Avoid excessive tea, coffee, soda, tomatoes, onions, spicy foods. Iron can cause constipation, so the patient can take MiraLAX as needed. The above plans were discussed with the patient's family and all questions answered. Please call us with any further questions. We will sign off. Please call with any further questions. cc: MD Ramon Noble MD MTDD
--- NOTE | 2019-12-31 12:50 | DISCHARGE SUMMARY ---
ADMISSION DATE: 12/24/2019 DISCHARGE DATE: 12/30/2019 DISCHARGE DIAGNOSES: 1. Acute blood loss anemia. 2. Hypotension. 3. Dehydration. 4. Stage 3 chronic kidney disease. 5. Acute kidney injury. 6. Acute myocardial infarction, non ST-segment elevation. 7. Chronic ischemic heart disease. 8. Atherosclerosis. 9. Abdominal aortic aneurysm. 10. History of hypertension. HOSPITAL COURSE: This 89-year-old white male presented to the emergency room 2 times in 2 days with the complaint of weakness. He had made this complaint at his Radiation Oncology office and they did not proceed with treatment, but nor did they offer anything. At the initial time he was seen in the emergency room, he was given some IV fluids and felt a bit better. He went home and had continued weakness to the point where he did not feel like he could move his legs. He called an ambulance and came to the emergency room. The previous day his hemoglobin had been 9.5. I did not recheck labs at that point. We gave him some fluids to try and improve his renal function. His baseline creatinine is somewhere between 1.6 and 1.8 and has increased significantly. The patient was admitted and I signed him over to my partners for the weekend. Apparently, the next day, the patient's blood volume was half of what it had been before with a hemoglobin of 4.8. He also had chest pain and suffered an elevation in troponin consistent with a non-Q-wave, non ST-segment elevation myocardial infarctions. Cardiology was consulted and the patient was transfused aggressively in the ICU. GI was also consulted and performed an EGD and this showed some severe duodenitis with erosive gastritis. He was started on Protonix twice daily and seemed to progress from there. Slowly, his blood pressure came up, but we realized then that the Cardiology team had put him on a little bit of beta qasim and some nitrates. When these were stripped off his blood pressure seemed to return to normal. He began to start feeling better when his mean arterial pressure was higher. Post transfusion and EGD, his hemoglobin was stable for 4 days in a row. We got his blood pressure managed and he was eager and very desirous of discharge on the . We put him off for an additional day to make sure that he was stable and could regain his feet, which he did quite well with physical therapy. On the morning of the he was again very desirous of going home. His son was there and agreed, and we discharged him home. We did not continue the beta qasim or nitrates. He is on a higher dose of Ranexa than he was before. He is to follow up within 2 weeks in my office to recheck his blood count and blood pressure. Due to the recent events during this hospitalization, this patient, although recovering is still quite weak and unsteady on his feet. He has difficulty getting out of the house at all and will need retraining and strengthening to properly use his walker at home. He would benefit from home PT and possibly other home services. A home PT and home health evaluation will be arranged with [facility] after the patient gets home. cc: Ramon Rosenberg MD MTDD
--- NOTE | 2019-12-31 13:11 | Extremity Venous Study ---
PROCEDURE NAME: Venous U/S Bilateral Legs - 12/25/2019 REFERRING PHYSICIAN: Dr. Vahid Cortes. READING PHYSICIAN: Dr. Victor M Dougherty FLIPPING MACHINE OPERATOR: Hernandez. INDICATIONS: Chest pain and leg swelling. FINDINGS: The deep and superficial veins of both lower extremities were imaged bilaterally. There is thrombus present with preserved flow in the common femoral, deep femoral, superficial femoral, and popliteal veins bilaterally. The calf veins are not seen well. The left greater saphenous vein has been harvested. 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 cc: MD Vahid Farley MD Timothy P. Weirich, MD
== END 2019-12-30 11:48 | disposition home health service (06) | DRG 698 ==
LOC: SUPCPDRO → ED 06:47 → EDIPHOLD 10:28 → 1N 11:54 → ICU 12-25 15:01 → 3N 12-28 23:02
PROVIDERS: ADMIT Internal Medicine; ATTEND Internal Medicine

== ENCOUNTER 2020-03-03 10:27 | Inpatient (IN) ==
[2020-03-03] MEDS ORDERED: NS 1,000 ML IV ONE (10:36)
[2020-03-03] MEDS ORDERED: ZOFRAN IV ONE (10:36)
--- NOTE | 2020-03-03 10:36 | PROVIDER DOCUMENTATION ---
HPI-General Adult - General Stated Complaint: Weakness Time Seen by Provider: 03/03/20 10:30 Source: patient, EMS Allergies/Adverse Reactions: Patient Allergies Allergy/AdvReac Type Severity Reaction Status Date / Time meperidine HCl * Allergy HIVES Verified 03/03/20 10:40 [From Demerol] Home Medications: Home Medication List Medication Instructions Recorded Confirmed Last Taken Type Aspirin 81 mg PO DAILY 07/29/16 03/03/20 03/02/20 History Mirtazapine 15 mg PO HS 11/12/19 12/24/19 12/22/19 23:00 History ATORVAstatin [Lipitor] 40 mg PO QHS tab 11/16/19 03/03/20 03/02/20 Rx Acetaminophen [Tylenol] 650 mg PO Q6H PRN PRN tab 11/16/19 03/03/20 03/02/20 Rx Metoprolol [Lopressor] 12.5 mg PO BID #30 tab 12/30/19 03/03/20 03/02/20 Rx Multivitamins/Minerals [Centrum 1 ea PO DAILY tab 12/30/19 03/03/20 03/02/20 Rx Silver] Pantoprazole [Protonix 40 mg PO BID #60 tab 12/30/19 03/03/20 03/02/20 Rx [Nonformulary]] Ranolazine E.r. [Ranexa] 1,000 mg PO BID tab 12/30/19 03/03/20 03/02/20 Rx - History of Present Illness -Gen Adult Nature of Presenting Problems: Patient is an 89 yom who c/o generalized weakness x 3 days, progressively worsening to the point of being unable to walk. Also reports fever yesterday and n/v that began today. States, "I think I have a kidney infection." Hx of frequent UTIs and multiple myeloma. Denies pain, SOB, or any other complaints. Review of Systems - Adult - REVIEW OF SYSTEMS - ADULT Constitutional: reports: see HPI, fever Eyes: reports: no symptoms reported Ears, Nose, Mouth & Throat: reports: no symptoms reported Cardiovascular: reports: no symptoms reported Respiratory: reports: no symptoms reported Gastrointestinal: reports: see HPI, nausea, vomiting. denies: abdominal pain, diarrhea Genitourinary: reports: see HPI Musculoskeletal: reports: see HPI, muscle weakness (generalized) Integumentary: reports: no symptoms reported Neurological: reports: no symptoms reported Psychiatric: reports: no symptoms reported Endocrine: reports: no symptoms reported Hematologic/Lymphatic: reports: no symptoms reported Allergic/Immunologic: reports: no symptoms reported All Other Systems: Reviewed and Negative Past History - Adult - PAST MEDICAL HISTORY-ADULT Review of Records: reports: Old Records Reviewed, Nursing Assessment Review, Medications Reviewed, Social history reviewed & non-contributory. Major Childhood Illnesses: reports: denies history Cardiovascular: reports: CAD, HTN, hyperlipidemia, SC Respiratory: reports: denies history Gastrointestinal: reports: GERD Obstetrical/Gynecological: reports: denies history Genitourinary: reports: cancer (bladder ), kidney disease, kidney stones Musculoskeletal: reports: denies history Neurological: reports: denies history Psychiatric: reports: denies history Endocrine/Immune: reports: denies history Other Conditions: reports: other cancer (multiple myleoma , bone ca) - PRIOR SURGERIES/PROCEDURES Surgical/Procedure History: reports: CABG (x2), indwelling device, other (r emoval of bladder, cystosostomy, neck and back surgery, Aorta repair) - PRIOR HOSPITALIZATIONS Prior Hospitalizations: reports: for other non-related - IMMUNIZATION STATUS Childhood Immunizations: See Nurse Assessment Flu Vaccine: See Nurse Assessment - FAMILY HISTORY Family History: reviewed, not pertinent - SOCIAL HISTORY Smoking: non-smoker Physical Exam-General - PHYSICAL EXAM-ADULT Initial Vital Signs Reviewed: Yes - CONSTITUTIONAL General Appearance: alert, no apparent distress. negative: lethargic, slow to respond - EYES Eyes: PERRL/EOMI - HEAD, EARS, NOSE, MOUTH & THROAT HENMT: normocephalic/atraumatic, moist mucous membranes - NECK Neck: full range of motion, supple, normal inspection - RESPIRATORY Respiratory: chest non-tender, lungs clear, normal breath sounds, no pleuratic chest pain, no respiratory distress, no accessory muscle use - CARDIOVASCULAR Cardiovascular: normal peripheral pulses, regular rate, rhythm, no gallop, systolic murmur - GASTROINTESTINAL (ABDOMEN) Abdominal Exam: normal bowel sounds, non tender, soft, other (suprapubic cath in place) - MUSCULOSKELETAL Back Exam: normal inspection, no CVA tenderness Extremity: normal range of motion, non-tender, other (2 + pitting edema noted to left lower leg) - SKIN Integumentary: normal color, warm/dry. negative: cyanosis, diaphoresis, jaundice, mottled, pallor - NEUROLOGIC Neurologic: grossly normal, no motor/sensory deficits. negative: aphasia, facial droop, focal weakness - PSYCHIATRIC Psych/Mental Status: normal mood/affect, normal thought content, normal thought process, oriented x 3 Progress - PLAN OF CARE/RESULTS Progress/Plan/Lab Results: Orders Category Date Time Status Cardiac Monitoring NOW Care 03/03/20 10:34 Ordered IV Insertion NOW Care 03/03/20 10:34 Ordered Notify Provider of NEWS Score NOW Care 03/03/20 10:34 Ordered Nursing- Obtain EKG ONCE Care 03/03/20 10:34 Ordered CHEST-1 VIEW [RAD] Stat Exams 03/03/20 10:34 Ordered BLOOD CULTURE [BLDCUL] Stat Lab 03/03/20 10:34 Uncollected CBC WITH DIFF [HEME] Stat Lab 03/03/20 10:34 Uncollected CK PROFILE [SP CHEM] Stat Lab 03/03/20 10:34 Uncollected COMPREHENSIVE METABOLIC PANEL [CHEM] Stat Lab 03/03/20 10:34 Uncollected LACTATE, PLASMA [CHEM] Q3H Lab 03/03/20 10:45 Uncollected LACTATE, PLASMA [CHEM] Q3H Lab 03/03/20 13:45 Uncollected LACTATE, PLASMA [CHEM] Q3H Lab 03/03/20 16:45 Uncollected MAGNESIUM [CHEM] Stat Lab 03/03/20 10:34 Uncollected PROTIME WITH INR [COAG] Stat Lab 03/03/20 10:34 Uncollected PTT [COAG] Stat Lab 03/03/20 10:34 Uncollected TROPONIN T HIGH SENSITIVITY Stat Lab 03/03/20 10:34 Uncollected TYPE & SCREEN [BBK] Stat Lab 03/03/20 10:34 Uncollected URINALYSIS W/POSS RFLX CULT [URINALYSIS] Stat Lab 03/03/20 10:34 Uncollected O2 Per Protocol Stat Oth 03/03/20 10:34 Ordered EKG [EKG] Stat Ther 03/03/20 10:34 Ordered Result Diagrams: 03/03/20 10:40 03/03/20 10:40 - REASSESSMENT Reassessment #1 Time Reassessed: 12:20 Status: other (Dr. Wheeler paged for admission. Pt in agreement with plan to admit.) - XRAY 1 XRAY Study: Chest ([facility] - [address] , [address], [place] [address] [facility] - [address] [place] [address] Department of Imaging Patient: JACQUELINE AGUIRRE Date: 03/03/20#: [id number] : 1930DM Status: REG [facility]#: [id number] Age/Sex: 89/MRoom/Bed: Loc: ED Ordering Physician: Garret Hernandez Family Physician: Ramon Rosenberg MD Reason for Procedure: general weakness, fever, n/v Signed EXAM: CHEST-1 VIEW HISTORY: general weakness, fever, n/v TECHNIQUE: Single view COMPARISON: 12/24/2019 FINDINGS: The patient is rotated to the right. The lungs are well expanded. The heart is not enlarged. There are sternal wires. The vessels are not distended. There are no infiltrates. No effusion identified. IMPRESSION: No pneumonia Electronically signed by Aashish Mcclendon 03/03/2020 11:00 AM 03/03/20 1100 Interpreting Physician: Aashish Mcclendon MD Dictated Date/Time: 03/03/20 1100 cc: Garret Hernandez; Ramon Rosenberg MD) - CONSULTS/PCP/HOSPITALIST Notification #1 *Consult/PCP/Hospitalist*: Dr. Wheeler Time Discussed: 12:44 Reason/Comments: admit- hypomagnesemia, weakness, UTI, hypophosphatemia, n/v Departure - Departure Date of Disposition Decision: 03/03/20 Time of Disposition Decision: 12:46 DIAGNOSIS: Renal insufficiency, Weakness, Hypomagnesemia, Hypophosphatemia UTI (urinary tract infection) Qualifiers: Urinary tract infection type: site unspecified Hematuria presence: without hematuria Qualified Code(s): N39.0 - Urinary tract infection, site not specified Nausea and vomiting Qualifiers: Vomiting type: unspecified Vomiting Intractability: non-intractable Qualified Code(s): R11.2 - Nausea with vomiting, unspecified Disposition: ADMITTED INPATIENT 09 Certified Medical Emergency: Emergent Condition: Stable Referrals and Follow-Ups: Ramon Rosenberg MD [Primary Care Provider] - - Critical Care Note This patient required my direct & personal management of CC.: No Attestation - Physician/ RADHA Attestation Patient care was provided by Advanced Practice Provider:: Yes Advanced Practice Provider:: Garret Hernandez Advanced Practice Provider documentation review:: The Mid-level provider documentation, treatment plan and medical decision making was reviewed by the physician who agrees with all treatment and medical decision making by the MLP. The physician spent face to face time with patient:: No Advanced Practice Provider documentation review:: Supervising physician onsite and consulted in the evaluation and care of this patient. The physician did not have a face to face encounter with the patient.
--- NOTE | 2020-03-03 11:03 | Diag Imaging Result Doc PS360 ---
EXAM: CHEST-1 VIEW HISTORY: general weakness, fever, n/v TECHNIQUE: Single view COMPARISON: 12/24/2019 FINDINGS: The patient is rotated to the right. The lungs are well expanded. The heart is not enlarged. There are sternal wires. The vessels are not distended. There are no infiltrates. No effusion identified. IMPRESSION: No pneumonia Electronically signed by Aashish Mcclendon 03/03/2020 11:00 AM
[2020-03-03 11:05] LABS: INR 1.14; PROTIME 14.7 Seconds (11.0-16.0)
[2020-03-03 11:06] LABS: PTT 32.4 Seconds (22.3-41.8)
[2020-03-03 11:10] LABS: BASO# 0.02 X1000 (0.0-0.2); BASO% 0.2 % (0.0-0.8); EOS# 0.02 X1000 (0.0-0.7); EOS% 0.2 % (0.0-10.0); HEMATOCRIT 32.9 % (42.0-52.0); HEMOGLOBIN 9.9 g/dL (14.0-18.0); IMM GRAN# 0.02 X1000 (0.0-0.04); IMM GRAN% 0.2 % (0.0-0.5); LYMPH# 0.61 X1000 (1.2-3.4); LYMPH% 4.9 % (20.5-51.1); MCH 30.6 PG (27-31); MCHC 30.1 g/dL (33-37); MCV 101.5 FL (81-99); MONO# 1.02 X1000 (0.11-0.59); MONO% 8.1 % (1.7-9.3); MPV 9.9 FL (7.4-10.4); NEUT# 10.87 X1000 (1.4-6.5); NEUT% 86.4 % (42.2-75.2); PLT 128 X1000 (130-400); RBC 3.24 XMIL (4.7-6.1); RDW 16.8 % (11.5-14.5); WBC 12.56 X1000 (4.8-10.8)
[2020-03-03 11:33] LABS: ESTIMATED GFR 34
[2020-03-03 11:42] LABS: AGAP 13; ALB/GLOB RATIO 2.4; ALKALINE PHOSPHATASE 87 U/L (32-122); BUN 33 mg/dL (8-22); CALCIUM 9.2 mg/dL (8.8-10.2); CHLORIDE 105 mmol/L (98-107); CK PROFILE 45 U/L (24-204); COSMO 287; CREATININE 1.9 mg/dL (0.7-1.2); GLUCOSE 112 mg/dL (70-104); GOT 8 U/L (10-34); GPT < 5 U/L (10-44); MAGNESIUM 0.8 mg/dL (1.5-2.7); POTASSIUM 4.5 mmol/L (3.5-5.1); SODIUM 140 mmol/L (136-145); TCO2 22 mmol/L (25-35); TOTAL BILIRUBIN 0.58 mg/dL (0.20-1.00); TOTAL PROTEIN 5.7 g/dL (6.3-8.3)
[2020-03-03] MEDS ORDERED: MAGNESIUM SULFATE 2 GM/S.W.I. 2 GM/50 ML IVPB IV ONE (11:43)
--- NOTE | 2020-03-03 11:52 | EKG Report ---
Test Performed on : 03/03/2020 11:28:43 AM Test Reason : weakness Blood Pressure : / mmHG Vent. Rate : 087 BPM Atrial Rate : 087 BPM P-R Int : 148 ms QRS Dur : 100 ms QT Int : 342 ms P-R-T Axes : 050 023 045 degrees QTc Int : 411 ms Normal sinus rhythm. Nonspecific T wave abnormality Abnormal ECG When compared with ECG of 26-DEC-2019 12:00, T wave inversion no longer evident in Anterior leads QT has shortened Unconfirmed Result
[2020-03-03 12:10] LABS: URINE SOURCE CATH
[2020-03-03 12:16] LABS: BILIRUBIN URINE NEGATIVE (NEGATIVE); BLOOD URINE SMALL (NEGATIVE); COLOR YELLOW; GLUCOSE URINE NEGATIVE (NEGATIVE); KETONE URINE TRACE mg/dL (NEGATIVE); LEUKOCYTES URINE LARGE (NEGATIVE); NITRITE URINE NEGATIVE (NEGATIVE); PROTEIN URINE TRACE mg/dL (NEGATIVE); SP GRAVITY URINE 1.012; TURBIDITY URINE HAZY (CLEAR); UROBILINOGEN URINE NORMAL (NORMAL)
[2020-03-03] MEDS ORDERED: ROCEPHIN 1 GM in NS 50 ML IV ONE (12:17)
[2020-03-03 12:18] LABS: UR EPITHELIAL CELLS <10 /HPF (<10); URINE BACTERIA 4+ /HPF; URINE RBC <10 /HPF (<10); URINE WBC 20-40 /HPF (<10)
[2020-03-03] MEDS ORDERED: TYLENOL PO ONE (13:12)
[2020-03-03] MEDS ORDERED: VANCOMYCIN IV PER PHARMACY MISC SCH (13:45)
--- NOTE | 2020-03-03 13:55 | HISTORY AND PHYSICAL ---
HISTORY OF PRESENT ILLNESS: Mr. Dean is a patient of Dr. Brody Rosenberg. An 89-year-old, states about 2 days ago he started feeling weak and just generalized weakness, a little bit of nausea, felt like he might have subjective fever. In the emergency room, he did have a temperature of 102 degrees. This is an 89-year-old whose last admission was in December 2019, was sent over by the radiation oncologist. At that time, he had infection of his ileal conduit, constant stool leak in the ileal conduit and frequently appeared infected. PAST MEDICAL HISTORY: 1. Bladder cancer with cystectomy and ileal conduit. Conduit has chronic stool leak, or did on last admission. 2. 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 He is on antianginal medication. 3. The patient had large abdominal aortic aneurysm despite repair in 1990, although he has been investigated for operative correction. They would have to cross clamp his aorta because of his chronic renal insufficiency, he was told likely he would end up on dialysis, so he has a large-size abdominal aortic aneurysm. 4. Hypertension. He is on antihypertensive medications. 5. Hyperlipidemia. 6. Chronic low back pain secondary to lumbar spinal stenosis, status post laminectomy. 7. He has had a cervical laminectomy as well, not sure if he had fusion or not. 8. History of left psoas abscess requiring IV antibiotics, extended course of Levaquin. 9. History of multiple myeloma diagnosed in 1996, followed by Dr. Moreno. 10. Currently undergoing radiation therapy he underwent under Dr. Garcia for a focal skin cancer. ALLERGIES: Demerol. SOCIAL HISTORY: Patient retired from [employer]. He has a history from the [employer]. He has a 40 pack year history of smoking, he quit in 1973. He does not use alcohol. Lives independently and lives in [place]. FAMILY HISTORY: Noncontributory. REVIEW OF SYSTEMS: General: He is not aware of any weight gain or loss. No fever or chills. He has not eaten much in the last couple days. HEENT: No change in visual or hearing acuity. Respiratory: No increased work of breathing or dyspnea. Denies any shortness of breath. Cardiovascular: No chest pain or tachy palpitation. Gastrointestinal/genitourinary: No gross hematuria or dysuria. He has a suprapubic catheter for an ileal conduit. Musculoskeletal/Neurologic: No focal complaints. Endocrinologic/hemologic: No significant history. MAIN PRESENTATION: Two days of weakness, general malaise, and subjective fever and some low-grade nausea. PHYSICAL EXAMINATION: VITAL SIGNS: In the emergency room, temp was a 101.9 degrees, pulse 85, respirations 25, blood pressure 135/67. HEENT: Pupils are equal and round. LUNGS: Clear in all lung pavon. CARDIOVASCULAR: Regular rhythm and rate without murmur or S3. ABDOMEN: Soft. SKIN: Warm and dry. URINE OUTPUT: 600 mL. LABORATORY DATA: White blood cell count 75504, hematocrit is 32, platelet count is 128,000. Sodium 140, potassium 4.5, chloride 105, BUN 33, creatinine 1.9, magnesium was 0.8, phosphorus 2.1. AST 8, ALT was 5, albumin was 4.0. ProTime 14.7, INR 1.17, PTT was 32. Urinalysis, 20 to 40 white blood cells, less than 10 red blood cells, bacteria 4+. IMAGING: His chest x-ray, no sign of infiltrate or pneumonia. The patient rotated to the right. Lungs are well expanded. The heart is not enlarged. There are sternal wires appreciated. Vessels are not distended. No infiltrates. ASSESSMENT AND PLAN: 1. It would be difficult to know if this is a urinary tract infection. I suspect colonization from an ileal conduit and suprapubic catheter, but we will treat him as he seems to have general malaise and weakness. He did have a low magnesium, which we will supplement. His renal function, creatinine is 1.9, and looking back at his previous creatinines, I think that is his baseline, he was 1.9 back on 11/15/2019, his lowest was 1.1 back in January 2018, so he has some chronic kidney disease. He does appear to be intravascularly dry. I do not see any history of left ventricular dysfunction. Looking back for a previous echocardiogram, there was an echocardiogram in December 2019. Right ventricular cavity size normal. Aortic leaflets are calcified. Mitral valve normal. Tricuspid valve looked normal. Peak velocity across aortic valve was 2 m/sec, severe aortic calcification, could not rule out mild aortic stenosis. Left ventricular size, severe left ventricular hypertrophy, estimated ejection fraction 30% with global hypokinesis, so he does have some congestive heart failure with a diminished ejection fraction. He is allergic to meropenem so I will put him on some Zosyn and vancomycin right now and give him some fluids, I will give him normal saline at 85 mL an hour and then cut that back as we can. 2. History of multiple myeloma. His blood counts look pretty good. He does have a mild anemia that appears to be macrocytic. We will check his B12 and folate. 3. History of aortic abdominal aneurysm which has had repair but it is dilated and is not a reoperative candidate. Concerned about his renal function. 4. History of coronary artery disease. He had coronary artery bypass grafting in 1978. He had stents in 2004. 5. History of hypertension. 6. History of hyperlipidemia. 7. Chronic back pain, lumbar spinal stenosis. 8. History of bladder cancer status post cystectomy with ileal conduit. This appears to be a urinary tract infection. We will go ahead and give him some fluids and as I suspect he will need to stay a couple days. cc: Vlad Wheeler MD MTDD
[2020-03-03] MEDS ORDERED: VANCOMYCIN 2 GM in NS 500 ML IV ONE (15:00)
[2020-03-03] MEDS ORDERED: TYLENOL PO PRN ×2 (16:12)
[2020-03-03] MEDS ORDERED: ZOFRAN IV PRN (16:12)
[2020-03-03] MEDS: RANEXA PO SCH (20:16)
[2020-03-03] MEDS: ZOSYN 2.25 GM in NS 50 ML IV SCH (20:17)
[2020-03-03] MEDS: LOPRESSOR PO SCH (20:17)
[2020-03-03] MEDS: PRILOSEC PO SCH (20:17)
[2020-03-03] MEDS: LIPITOR PO SCH (20:17)
[2020-03-03] MEDS: REMERON PO SCH (20:17)
[2020-03-03] MEDS ORDERED: NORCO-5 PO PRN (23:04)
[2020-03-03] MEDS ORDERED: NS 1,000 ML IV SCH (23:15)
[2020-03-04] MEDS: ZOSYN 2.25 GM in NS 50 ML IV SCH (03:04)
[2020-03-04] MEDS: PRILOSEC PO SCH ×2 (06:01→22:30)
[2020-03-04 06:33] LABS: BASO# 0.01 X1000 (0.0-0.2); BASO% 0.1 % (0.0-0.8); EOS# 0.01 X1000 (0.0-0.7); EOS% 0.1 % (0.0-10.0); HEMATOCRIT 27.6 % (42.0-52.0); HEMOGLOBIN 8.4 g/dL (14.0-18.0); IMM GRAN# 0.02 X1000 (0.0-0.04); IMM GRAN% 0.3 % (0.0-0.5); LYMPH# 0.83 X1000 (1.2-3.4); LYMPH% 10.7 % (20.5-51.1); MCHC 30.4 g/dL (33-37); MCV 101.8 FL (81-99); MONO# 1.06 X1000 (0.11-0.59); MONO% 13.7 % (1.7-9.3); MPV 9.9 FL (7.4-10.4); NEUT# 5.83 X1000 (1.4-6.5); NEUT% 75.1 % (42.2-75.2); PLT 105 X1000 (130-400); RBC 2.71 XMIL (4.7-6.1); RDW 16.2 % (11.5-14.5); WBC 7.76 X1000 (4.8-10.8)
[2020-03-04 07:07] LABS: ESTIMATED GFR 34
[2020-03-04 07:31] LABS: AGAP 13; ALB/GLOB RATIO 1.4; ALBUMIN 2.9 g/dL (3.5-5.0); ALKALINE PHOSPHATASE 68 U/L (32-122); BUN 32 mg/dL (8-22); CALCIUM 7.9 mg/dL (8.8-10.2); CHLORIDE 109 mmol/L (98-107); CK PROFILE 51 U/L (24-204); COSMO 292; CREATININE 1.9 mg/dL (0.7-1.2); GLUCOSE 92 mg/dL (70-104); GOT 7 U/L (10-34); GPT < 5 U/L (10-44); MAGNESIUM 1.5 mg/dL (1.5-2.7); POTASSIUM 4.4 mmol/L (3.5-5.1); SODIUM 143 mmol/L (136-145); TCO2 21 mmol/L (25-35); TOTAL BILIRUBIN 0.53 mg/dL (0.20-1.00)
--- NOTE | 2020-03-04 08:25 | EKG Report ---
Test Performed on : 03/04/2020 06:52:22 AM Test Reason : CP Blood Pressure : / mmHG Vent. Rate : 070 BPM Atrial Rate : 070 BPM P-R Int : 148 ms QRS Dur : 098 ms QT Int : 418 ms P-R-T Axes : 051 050 054 degrees QTc Int : 451 ms Normal sinus rhythm. Nonspecific T wave abnormality Abnormal ECG When compared with ECG of 03-MAR-2020 11:28, (Unconfirmed) Nonspecific T wave abnormality no longer evident in Inferior leads Confirmed by Liam SMALL, Vlad Coronel ([id number]) on 03/06/2020 9:25:02 AM
[2020-03-04] MEDS: RANEXA PO SCH ×2 (08:48→22:31)
[2020-03-04] MEDS: LOPRESSOR PO SCH ×2 (08:48→22:31)
[2020-03-04] MEDS: ASPIRIN PO SCH (08:49)
[2020-03-04] MEDS: MAXIPIME 1 GM in NS 50 ML IV SCH ×2 (08:53→22:26)
--- NOTE | 2020-03-04 11:45 | Diag Imaging Result Doc PS360 ---
EXAM: CHEST-PORTABLE HISTORY: pneumonia TECHNIQUE: Single view COMPARISON: 03/03/2020 FINDINGS: The lungs are well expanded. The heart is not enlarged. There are sternal wires. The vessels are not distended. There are minimal increased interstitial markings. No effusion identified. IMPRESSION: Questionable tiny patchy infiltrates Electronically signed by Aashish Mcclendon 03/04/2020 11:43 AM
[2020-03-04] MEDS: CALMOSEPTINE OINTMENT TOP SCH ×2 (13:55→22:30)
[2020-03-04] MEDS: FOLIC ACID PO SCH (13:55)
[2020-03-04] MEDS: MAG-OX PO SCH (13:55)
[2020-03-04] MEDS: REMERON PO SCH (22:31)
[2020-03-04] MEDS: LIPITOR PO SCH (22:31)
[2020-03-05] MEDS ORDERED: VANCOMYCIN 1.8 GM in NS 250 ML IV SCH (05:00)
[2020-03-05] MEDS: PRILOSEC PO SCH ×3 (05:52→22:29)
[2020-03-05] MEDS: FOLIC ACID PO SCH (09:19)
[2020-03-05] MEDS: RANEXA PO SCH ×2 (09:19→22:28)
[2020-03-05] MEDS: MAG-OX PO SCH (09:19)
[2020-03-05] MEDS: ASPIRIN PO SCH (09:19)
[2020-03-05] MEDS: LOPRESSOR PO SCH ×2 (09:19→22:29)
[2020-03-05] MEDS: SEPTRA DS PO SCH ×2 (09:25→22:29)
[2020-03-05] MEDS: CALMOSEPTINE OINTMENT TOP SCH ×2 (09:25→22:27)
[2020-03-05] MEDS: LIPITOR PO SCH (22:28)
[2020-03-05] MEDS: REMERON PO SCH (22:28)
[2020-03-06] MEDS: PRILOSEC PO SCH (05:59)
[2020-03-06 07:03] LABS: EOS% 4.7 % (0.0-10.0); HEMATOCRIT 30.9 % (42.0-52.0); HEMOGLOBIN 9.5 g/dL (14.0-18.0); LYMPH# 0.74 X1000 (1.2-3.4); LYMPH% 11.7 % (20.5-51.1); MCH 31.4 PG (27-31); MCHC 30.7 g/dL (33-37); MONO# 0.85 X1000 (0.11-0.59); MONO% 13.4 % (1.7-9.3); MPV 10.3 FL (7.4-10.4); NEUT# 4.45 X1000 (1.4-6.5); NEUT% 70.2 % (42.2-75.2); PLT 140 X1000 (130-400); RBC 3.03 XMIL (4.7-6.1); RDW 16.2 % (11.5-14.5); WBC 6.34 X1000 (4.8-10.8)
[2020-03-06 07:31] VITALS: BP 167/63
[2020-03-06] MEDS: SEPTRA DS PO SCH (08:21)
[2020-03-06] MEDS: RANEXA PO SCH (08:21)
[2020-03-06] MEDS: MAG-OX PO SCH (08:21)
[2020-03-06] MEDS: LOPRESSOR PO SCH (08:22)
[2020-03-06] MEDS: ASPIRIN PO SCH (08:22)
[2020-03-06] MEDS: FOLIC ACID PO SCH (08:22)
[2020-03-06] MEDS: CALMOSEPTINE OINTMENT TOP SCH (08:29)
--- NOTE | 2020-03-07 06:01 | DISCHARGE SUMMARY ---
ADMISSION DATE: 03/03/2020 DISCHARGE DATE: 03/06/2020 DISCHARGE DIAGNOSES: 1. Ileal pouchitis. 2. Chronic stool leakage to ileal conduit. 3. Urinary tract infection. 4. Fever. 5. History of multiple myeloma. 6. Hypertension. 7. Chronic renal insufficiency, with baseline creatinine of 1.9. 8. Focal skin cancer, currently undergoing radiation therapy. HOSPITAL COURSE: The patient was admitted with weakness, 102 fever, and symptoms consistent with systemic spread of local pouchitis. The patient's urine was cultured and grew Klebsiella pneumoniae with no specific resistance pattern. After empiric antibiotics were tailored to the resistance pattern, the patient was switched over to Septra and remained afebrile. When I saw the patient on the day of discharge, he was eager and desirous of discharge. Was aware that he would be taking antibiotic for a couple of days, but no other changes in medications were made. He was discharged home in good condition with instructions to follow up within 2 weeks in my office. We may want to consider chronic suppressive antibiotics down the line for him. No other medication changes were made. cc: MD Vlad Mendoza MD
== END 2020-03-06 09:40 | disposition home health service (06) | DRG 698 ==
LOC: ED 10:27 → 4N 14:30
PROVIDERS: ADMIT Emergency Medicine; ATTEND Internal Medicine